=== PATIENT | male | born 1985 | race Two or more races ===

== ENCOUNTER 2018-04-01 15:51 | Emergency (ER) | payer MEDICAID ==
[~2018-04-01] VITALS: Ht 167.6 cm; Wt 77.1 kg
[2018-04-01 16:00] VITALS: BP 156/97
[2018-04-01] MEDS ORDERED: LORazepam Inj 2mg/ml 1ml IV ONE ×2 (16:00→17:00)
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
[2018-04-01 16:27] LABS: APPEARANCE,URINE CLEAR; BILIRUBIN, URINE NEGATIVE (NEGATIVE); COLOR,URINE PALE YELLOW; GLUCOSE, URINE (UA) NEGATIVE (NEGATIVE); KETONES,URINE NEGATIVE (NEGATIVE); LEUKOCYTE ESTERASE ,URINE NEGATIVE (NEGATIVE); NITRITE,URINE NEGATIVE (NEGATIVE); PH,URINE 6.5 (4.5-8.0); PROTEIN,URINE NEGATIVE (NEGATIVE); UROBILINOGEN,URINE NORMAL MG/DL (0.0-1.0)
[2018-04-01 16:36] LABS: EOSINOPHILS % (AUTO) 0.6 % (0.0-3.0); HEMATOCRIT 47.2 % (42.0-52.0); HEMOGLOBIN 16.8 G/DL (14.2-18.0); LYMPHOCYTES % (AUTO) 24.1 % (20.0-45.0); MEAN CORPUSCULAR VOLUME 88 FL (80-99); MONOCYTES % (AUTO) 10.6 % (1.0-10.0); NEUTROPHILS % (AUTO) 63.7 % (45.0-75.0); PLATELET COUNT 205 K/UL (150-450); RED BLOOD COUNT 5.34 M/UL (4.70-6.10); RED CELL DISTRIBUTION WIDTH 10.7 % (11.6-14.8)
[2018-04-01 16:42] LABS: ANION GAP 16 mmol/L (5-15); BLOOD UREA NITROGEN 6 mg/dL (7-18); CALCIUM 8.6 MG/DL (8.5-10.1); CARBON DIOXIDE 21 MMOL/L (21-32); CHLORIDE 101 MMOL/L (98-107); CREATININE 1.2 MG/DL (0.55-1.30); POTASSIUM 3.5 MMOL/L (3.5-5.1); SODIUM 138 MMOL/L (136-145)
[2018-04-01 16:59] LABS: ALANINE AMINOTRANSFERASE 88 U/L (12-78); ALBUMIN 4.3 G/DL (3.4-5.0); ALKALINE PHOSPHATASE 77 U/L (46-116); ASPARTATE AMINO TRANSFERASE 107 U/L (15-37); BILIRUBIN,TOTAL 0.8 MG/DL (0.2-1.0); CREATINE KINASE 569 U/L (26-308)
--- NOTE | 2018-04-01 17:18 | Diagnostic Imaging Report ---
Indication: Shortness of breath Technique: One view of the chest Comparison: none Findings: Lungs and pleural spaces are clear. Heart size is upper limit normal Impression: No acute process
[2018-04-01 18:00] VITALS: BP 124/73
[2018-04-01 20:00] VITALS: BP 122/70
[2018-04-01 21:05] VITALS: BP 124/73
[2018-04-02] MEDS ORDERED: LIBRIUM10 MG ORAL (05:59)
--- NOTE | 2018-04-04 12:20 | Cardiology Report ---
APPROVED REPORT EKG Measurement Heart [id number] Sinus tachycardia Otherwise normal ECG
== END 2018-04-01 21:05 | disposition home or self-care (01) ==
LOC: EMR 16:30
DX: F10.129 Alcohol abuse with intoxication, unspecified (principal); F15.129 Other stimulant abuse with intoxication, unspecified
CPT/HCPCS: 36415; 71045; 80053; 80307; 80329; 81003; 82550; 83605; 84443; 84484; 85025; 93005; 96365; 96366; 96374; 99284; J2405

== ENCOUNTER 2018-04-02 04:30 | Emergency (ER) | payer MEDICAID ==
[~2018-04-02] VITALS: Ht 167.6 cm; Wt 78.0 kg
[2018-04-02 04:55] VITALS: BP 148/79
[2018-04-02] MEDS ORDERED: LORazepam Inj 2mg/ml 1ml IV ONE (05:00)
[2018-04-02] MEDS ORDERED: Pantoprazole Inj IV ONE (05:00)
--- NOTE | 2018-04-02 05:01 | Emergency Room Report ---
History of Present Illness General Chief Complaint: Abdominal Pain Source: Patient Present Illness HPI Is a 32-year-old male who has a history of alcohol abuse. He was here yesterday for intoxication with very high blood alcohol and also positive for amphetamine. Patient presents with chief complaint of abdominal pain with vomiting. Noticed some specks in it. Pain is epigastric and left upper quadrant area. Also very shaky. Has not had any alcohol since he left here. Denies any other complaint. Pain is 9 out of 10. No radiation. Vomiting is mostly nonbilious. No black stool. Allergies: Coded Allergies: No Known Allergies (Unverified , 04/01/18) Patient History Past Medical History: see triage record, old chart reviewed Past Surgical History: none Pertinent Family History: none Social History: Reports: alcohol use, drug use Immunizations: other Reviewed Nursing Documentation: PMH: Agreed; PSxH: Agreed Nursing Documentation-PMH Hx Gastrointestinal Problems: Yes - GASTRITIS Review of Systems Eye: Denies: eye pain, blurred vision ENT: Denies: ear pain, nose congestion, throat swelling Respiratory: Denies: cough, shortness of breath Cardiovascular: Denies: chest pain, palpitations Gastrointestinal: Reports: abdominal pain, nausea, vomiting; Denies: diarrhea Musculoskeletal: Denies: back pain, joint pain Skin: Denies: rash Neurological: Denies: headache, numbness Endocrine: Denies: increased thirst, increased urine Hematologic/Lymphatic: Denies: easy bruising All Other Systems: negative except mentioned in HPI Physical Exam Vital Signs Date Time Temp Pulse Resp B/P (MAP) Pulse Ox O2 Delivery O2 Flow Rate FiO2 04/02/18 04:42 98.7 106 18 155/79 96 Room Air 98.8 vitals with tachycardia and high blood pressure Sp02 EP Interpretation: reviewed, normal General Appearance: well appearing, no apparent distress, alert Head: normocephalic, atraumatic Eyes: bilateral eye PERRL, bilateral eye EOMI ENT: hearing grossly normal, normal pharynx Neck: full range of motion, supple, no meningismus Respiratory: chest non-tender, lungs clear, normal breath sounds Cardiovascular #1: regular rate, rhythm, no murmur Gastrointestinal: normal bowel sounds, no mass, no organomegaly, no bruit, non- distended, tenderness - epigastric Musculoskeletal: back normal, gait/station normal, normal range of motion Neurologic: alert, oriented x3, other - tremulous Psychiatric: mood/affect normal Skin: warm/dry Medical Decision Making Diagnostic Impression: Primary Impression: Alcohol withdrawal syndrome Qualified Codes: F10.230 - Alcohol dependence with withdrawal, uncomplicated Additional Impression: Alcoholic gastritis Qualified Codes: K29.20 - Alcoholic gastritis without bleeding ER Course this patient presents with alcohol withdrawal syndrome. No perforation. No evidence of acute abdomen. His of epigastric pain is probably secondary to alcoholic gastritis. He is much better now. No longer tremulous. We'll discharge home. Lab Results Impression labs unremarkable Last Vital Signs Date Time Temp Pulse Resp B/P (MAP) Pulse Ox O2 Delivery O2 Flow Rate FiO2 04/02/18 04:42 98.7 106 18 155/79 96 Room Air 98.8 Status: improved Disposition: HOME, SELF-CARE Condition: Stable Scripts Chlordiazepoxide Hcl* (LIBRIUM*) 10 Mg Capsule 10 MG ORAL THREE TIMES A DAY, #21 CAP 0 Refills Prov: HEIDI AHN M.D. 04/02/18 Additional Instructions: Stop drinking alcohol. Follow-up with rehabilitation in 7 days. Follow-up your doctor in 7 days. Return if worse. HEIDI AHN M.D. Apr 02, 2018 05:01
[2018-04-02] MEDS ORDERED: chlordiazePOXIDE 25mg Cap ORAL ONE (05:15)
[2018-04-02 05:28] LABS: APPEARANCE,URINE CLEAR; BILIRUBIN, URINE NEGATIVE (NEGATIVE); COLOR,URINE PALE YELLOW; GLUCOSE, URINE (UA) NEGATIVE (NEGATIVE); KETONES,URINE NEGATIVE (NEGATIVE); LEUKOCYTE ESTERASE ,URINE NEGATIVE (NEGATIVE); NITRITE,URINE NEGATIVE (NEGATIVE); PH,URINE 8 (4.5-8.0); PROTEIN,URINE NEGATIVE (NEGATIVE); UROBILINOGEN,URINE NORMAL MG/DL (0.0-1.0)
[2018-04-02 05:30] LABS: EOSINOPHILS % (AUTO) 1.6 % (0.0-3.0); HEMATOCRIT 47.5 % (42.0-52.0); HEMOGLOBIN 16.4 G/DL (14.2-18.0); LYMPHOCYTES % (AUTO) 18.5 % (20.0-45.0); MEAN CORPUSCULAR VOLUME 89 FL (80-99); MONOCYTES % (AUTO) 9.4 % (1.0-10.0); NEUTROPHILS % (AUTO) 69.6 % (45.0-75.0); PLATELET COUNT 185 K/UL (150-450); RED BLOOD COUNT 5.31 M/UL (4.70-6.10); RED CELL DISTRIBUTION WIDTH 10.9 % (11.6-14.8); WHITE BLOOD COUNT 7.9 K/UL (4.8-10.8)
[2018-04-02 05:41] LABS: ANION GAP 12 mmol/L (5-15); BLOOD UREA NITROGEN 6 mg/dL (7-18); CALCIUM 8.5 MG/DL (8.5-10.1); CARBON DIOXIDE 24 MMOL/L (21-32); CHLORIDE 100 MMOL/L (98-107); CREATININE 0.8 MG/DL (0.55-1.30); POTASSIUM 3.5 MMOL/L (3.5-5.1); SODIUM 136 MMOL/L (136-145)
[2018-04-02 05:52] LABS: ALANINE AMINOTRANSFERASE 80 U/L (12-78); ALBUMIN 4.3 G/DL (3.4-5.0); ALBUMIN/GLOBULIN RATIO 1.1 (1.0-2.7); ALKALINE PHOSPHATASE 74 U/L (46-116); ASPARTATE AMINO TRANSFERASE 93 U/L (15-37); BILIRUBIN,TOTAL 1.7 MG/DL (0.2-1.0)
[2018-04-02 05:54] LABS: BILIRUBIN,DIRECT 0.3 MG/DL (0.0-0.3)
[2018-04-02 05:55] VITALS: BP 132/79
[2018-04-02] MEDS ORDERED: LIBRIUM10 MG ORAL (05:59)
[2018-04-02 06:10] VITALS: BP 132/79
--- NOTE | 2018-04-02 14:38 | Diagnostic Imaging Report ---
Indication: Chest pain Technique: One view of the chest Comparison: 04/01/2018 Findings: Lungs and pleural spaces are clear. Heart size is normal. No significant change Impression: No acute process
== END 2018-04-02 06:10 | disposition home or self-care (01) ==
LOC: EMR 04:59
DX: F10.239 Alcohol dependence with withdrawal, unspecified (principal); R11.2 Nausea with vomiting, unspecified; K29.20 Alcoholic gastritis without bleeding
CPT/HCPCS: 36415; 71045; 80053; 81003; 82248; 83690; 85025; 96365; 96374; 96375; 99283; C9113; J2405

== ENCOUNTER 2018-05-23 11:55 | Emergency (ER) | payer MEDICAID ==
[~2018-05-23] VITALS: Ht 162.6 cm; Wt 68.0 kg
[~2018-05-23 11:55] MED LIST: LIBRIUM10 MG ORAL
[2018-05-23 12:05] VITALS: BP 122/63
[2018-05-23 12:56] LABS: APPEARANCE,URINE CLEAR; BILIRUBIN, URINE NEGATIVE (NEGATIVE); COLOR,URINE PALE YELLOW; GLUCOSE, URINE (UA) NEGATIVE (NEGATIVE); KETONES,URINE 1+ (NEGATIVE); LEUKOCYTE ESTERASE ,URINE NEGATIVE (NEGATIVE); NITRITE,URINE NEGATIVE (NEGATIVE); PH,URINE 7 (4.5-8.0); PROTEIN,URINE NEGATIVE (NEGATIVE); UROBILINOGEN,URINE 4 MG/DL (0.0-1.0)
[2018-05-23] MEDS ORDERED: Isovue-300 100ml vial INJ PRN (13:00)
[2018-05-23 13:04] LABS: BASOPHILS % (AUTO) 1.3 % (0.0-2.0); EOSINOPHILS % (AUTO) 1.3 % (0.0-3.0); HEMATOCRIT 45.2 % (42.0-52.0); HEMOGLOBIN 15.8 G/DL (14.2-18.0); LYMPHOCYTES % (AUTO) 18.8 % (20.0-45.0); MEAN CORPUSCULAR VOLUME 89 FL (80-99); MONOCYTES % (AUTO) 9.5 % (1.0-10.0); NEUTROPHILS % (AUTO) 69.1 % (45.0-75.0); PLATELET COUNT 262 K/UL (150-450); RED CELL DISTRIBUTION WIDTH 9.5 % (11.6-14.8); WHITE BLOOD COUNT 7.9 K/UL (4.8-10.8)
[2018-05-23 13:07] LABS: ANION GAP 14 mmol/L (5-15); BLOOD UREA NITROGEN 6 mg/dL (7-18); CALCIUM 8.5 MG/DL (8.5-10.1); CARBON DIOXIDE 22 MMOL/L (21-32); CHLORIDE 102 MMOL/L (98-107); CREATININE 0.7 MG/DL (0.55-1.30); POTASSIUM 3.6 MMOL/L (3.5-5.1); SODIUM 138 MMOL/L (136-145)
[2018-05-23 13:19] LABS: ALANINE AMINOTRANSFERASE 25 U/L (12-78); ALBUMIN/GLOBULIN RATIO 1.1 (1.0-2.7); ALKALINE PHOSPHATASE 82 U/L (46-116); ASPARTATE AMINO TRANSFERASE 30 U/L (15-37); BILIRUBIN,TOTAL 0.9 MG/DL (0.2-1.0)
--- NOTE | 2018-05-23 13:29 | Diagnostic Imaging Report ---
EXAM: XR Chest, 1 View CLINICAL HISTORY: SOB TECHNIQUE: Frontal view of the chest. COMPARISON: No relevant prior studies available. FINDINGS: Lungs: No consolidation. Reduced lung volumes Pleural space: Unremarkable. No pneumothorax. Heart: Unremarkable. No cardiomegaly. Mediastinum: Unremarkable. Bones/joints: No acute fracture. IMPRESSION: No acute cardiopulmonary disease.
--- NOTE | 2018-05-23 14:27 | Diagnostic Imaging Report ---
EXAM: CT Abdomen and Pelvis With Intravenous Contrast CLINICAL HISTORY: PAIN TECHNIQUE: Axial computed tomography images of the abdomen and pelvis with intravenous contrast. CTDI is 0.15 + 13.45 mGy and DLP is 736 mGy-cm. One or more of the following dose reduction techniques were used: automated exposure control, adjustment of the mA and/or kV according to patient size, use of iterative reconstruction technique. COMPARISON: No relevant prior studies available. FINDINGS: Lung bases: Unremarkable. ABDOMEN: Liver: Fatty liver. Gallbladder and bile ducts: No calcified stones. No ductal dilation. Pancreas: Unremarkable. Spleen: Unremarkable. Adrenals: Unremarkable. Kidneys and ureters: Unremarkable. No hydronephrosis. Stomach and bowel: No edgardo mural thickening. Nonobstructive bowel gas pattern. PELVIS: Appendix: Unremarkable appendix. Bladder: Minimal thickening in the dome of the bladder. Reproductive: Unremarkable. ABDOMEN and PELVIS: Intraperitoneal space: Unremarkable. Bones/joints: No acute fracture. Soft tissues: Unremarkable. Vasculature: Unremarkable. No abdominal aortic aneurysm. Lymph nodes: Some calcified mesenteric nodes. IMPRESSION: Unremarkable appendix.
[2018-05-23] MEDS ORDERED: Lidocaine 2% Visc 15ml soln ORAL ONE (14:30)
--- NOTE | 2018-05-23 14:42 | Emergency Room Report ---
History of Present Illness General Chief Complaint: Dyspnea/Respdistress Source: Patient Present Illness HPI Patient states that he has overall abdominal pain after drinking. He denies nausea or vomiting. He denies fever or chills. He denies dysuria or hematuria. He has no other complaints. Allergies: Coded Allergies: No Known Allergies (Unverified , 04/01/18) Patient History Past Medical History: none, see triage record, GERD Social History: Reports: alcohol use, drug use Reviewed Nursing Documentation: PMH: Agreed; PSxH: Agreed Nursing Documentation-PMH Past Medical History: No History, Except For Hx Gastrointestinal Problems: Yes - GASTRITIS Review of Systems All Other Systems: negative except mentioned in HPI Physical Exam Vital Signs Date Time Temp Pulse Resp B/P (MAP) Pulse Ox O2 Delivery O2 Flow Rate FiO2 05/23/18 11:58 98.1 96 18 119/77 98 Room Air 98.1 Sp02 EP Interpretation: reviewed, normal General Appearance: no apparent distress, alert, GCS 15, non-toxic Head: normocephalic, atraumatic Eyes: bilateral eye normal inspection, bilateral eye PERRL ENT: hearing grossly normal, normal pharynx, no angioedema, normal voice Neck: full range of motion, supple/symm/no masses Respiratory: chest non-tender, lungs clear, normal breath sounds, speaking full sentences Cardiovascular #1: regular rate, rhythm, no edema Cardiovascular #2: 2+ carotid (R), 2+ carotid (L), 2+ radial (R), 2+ radial (L) , 2+ dorsalis pedis (R), 2+ dorsalis pedis (L) Gastrointestinal: normal bowel sounds, soft, non-distended, no guarding, no rebound, tenderness - ttp in the epigastrium Rectal: deferred Musculoskeletal: back normal, gait/station normal, normal range of motion, non- tender Neurologic: alert, oriented x3, responsive, motor strength/tone normal, sensory intact, speech normal Psychiatric: judgement/insight normal, memory normal, mood/affect normal, no suicidal/homicidal ideation Skin: normal color, no rash, warm/dry, well hydrated Medical Decision Making Diagnostic Impression: Primary Impression: Alcohol intoxication Additional Impression: Gastritis ER Course This patient has a clinical presentation consistent with gastritis. The location of the pain and history and physical examination is consistent with this. I considered other concerning differentials, to include appendicitis, cholelithiasis, cholecystitis, pancreatitis, perforated viscus, aortic aneurysm , and pyelonephritis to name a few. However, CT of the abdomen and pelvis and laboratory workup in combination with medical and surgical history and physical exam makes these unlikely at this time. I did educate the patient on close return precautions and followup instructions. Laboratory Tests Test 05/23/18 12:30 White Blood Count 7.9 K/UL (4.8-10.8) Red Blood Count 5.10 M/UL (4.70-6.10) Hemoglobin 15.8 G/DL (14.2-18.0) Hematocrit 45.2 % (42.0-52.0) Mean Corpuscular Volume 89 FL (80-99) Mean Corpuscular Hemoglobin 30.9 PG (27.0-31.0) Mean Corpuscular Hemoglobin Concent 34.9 G/DL (32.0-36.0) Red Cell Distribution Width 9.5 % (11.6-14.8) L Platelet Count 262 K/UL (150-450) Mean Platelet Volume 5.8 FL (6.5-10.1) L Neutrophils (%) (Auto) 69.1 % (45.0-75.0) Lymphocytes (%) (Auto) 18.8 % (20.0-45.0) L Monocytes (%) (Auto) 9.5 % (1.0-10.0) Eosinophils (%) (Auto) 1.3 % (0.0-3.0) Basophils (%) (Auto) 1.3 % (0.0-2.0) Urine Color Pale yellow Urine Appearance Clear Urine pH 7 (4.5-8.0) Urine Specific Royal 1.010 (1.005-1.035) Urine Protein Negative (NEGATIVE) Urine Glucose (UA) Negative (NEGATIVE) Urine Ketones 1+ (NEGATIVE) H Urine Occult Blood Negative (NEGATIVE) Urine Nitrite Negative (NEGATIVE) Urine Bilirubin Negative (NEGATIVE) Urine Urobilinogen 4 MG/DL (0.0-1.0) H Urine Leukocyte Esterase Negative (NEGATIVE) Sodium Level 138 MMOL/L (136-145) Potassium Level 3.6 MMOL/L (3.5-5.1) Chloride Level 102 MMOL/L (98-107) Carbon Dioxide Level 22 MMOL/L (21-32) Anion Gap 14 mmol/L (5-15) Blood Urea Nitrogen 6 mg/dL (7-18) L Creatinine 0.7 MG/DL (0.55-1.30) Estimate Glomerular Filtration Rate > 60 mL/min (>60) Glucose Level 111 MG/DL (74-106) H Calcium Level 8.5 MG/DL (8.5-10.1) Total Bilirubin 0.9 MG/DL (0.2-1.0) Aspartate Amino Transferase (AST) 30 U/L (15-37) Alanine Aminotransferase (ALT) 25 U/L (12-78) Alkaline Phosphatase 82 U/L (46-116) Troponin I 0.000 ng/mL (0.000-0.056) Total Protein 7.7 G/DL (6.4-8.2) Albumin 4.0 G/DL (3.4-5.0) Globulin 3.7 g/dL Albumin/Globulin Ratio 1.1 (1.0-2.7) Thyroid Stimulating Hormone (TSH) 0.782 uiU/mL (0.358-3.740) Urine Opiates Screen Negative (NEGATIVE) Urine Barbiturates Screen Negative (NEGATIVE) Phencyclidine (PCP) Screen Negative (NEGATIVE) Urine Amphetamines Screen Negative (NEGATIVE) Urine Benzodiazepines Screen Negative (NEGATIVE) Urine Cocaine Screen Negative (NEGATIVE) Urine Marijuana (THC) Screen Negative (NEGATIVE) Serum Alcohol 219 mg/dL EKG Diagnostic Results Rate: normal Rhythm: NSR ST Segments: no acute changes Rhythm Strip Diag. Results EP Interpretation: yes Rate: 80's Rhythm: NSR, no PVC's, no ectopy Last Vital Signs Date Time Temp Pulse Resp B/P (MAP) Pulse Ox O2 Delivery O2 Flow Rate FiO2 05/23/18 12:05 73 22 Room Air 05/23/18 12:05 98.1 122/63 98 98.1 Disposition: HOME, SELF-CARE Condition: Improved Scripts Mag Hydrox/Al Hydrox/Simeth (MAALOX MAXIMUM STRENGTH SUSP) 355 Ml Oral.susp 10 ML PO Q4HR, #355 ML Prov: Yesenia Hernandez DO 05/23/18 Famotidine (PEPCID AC) 20 Mg Tablet 20 MG PO BID, #60 TAB Prov: Yesenia Hernandez DO 05/23/18 Referrals: NOT CHOSEN IPA/,REFERRING (PCP) Yesenia Hernandez DO May 23, 2018 14:42
[2018-05-23] MEDS ORDERED: MAALOX MAXIMUM355 M1 PO (14:44)
[2018-05-23] MEDS ORDERED: PEPCID AC20 M2 PO (14:44)
[2018-05-23 15:34] VITALS: BP 120/86
[2018-05-23 15:35] VITALS: BP 120/86
--- NOTE | 2018-05-24 14:19 | Cardiology Report ---
APPROVED REPORT EKG Measurement Heart [id number] [place] [id number] Normal sinus rhythm Normal ECG
== END 2018-05-23 15:36 | disposition home or self-care (01) ==
LOC: EMR 14:04
DX: F10.129 Alcohol abuse with intoxication, unspecified (principal); K29.70 Gastritis, unspecified, without bleeding
CPT/HCPCS: 36415; 71045; 74177; 80053; 80307; 80329; 81003; 83690; 84443; 84484; 85025; 93005; 96361; 96374; 99284; Q9967; S0028

== ENCOUNTER 2018-06-04 17:51 | Inpatient (IN) | payer MEDICAID ==
[~2018-06-04] VITALS: Ht 162.6 cm; Wt 68.0 kg
[~2018-06-04 17:51] MED LIST changes: +MAALOX MAXIMUM355 M1 PO; +PEPCID AC20 M2 PO
[2018-06-04] MEDS ORDERED: Morphine Sulfate 4mg/ml Inj (IV USE ONLY) IVP ONE ×3 (18:00→20:15)
[2018-06-04 18:25] LABS: BASOPHILS % (AUTO) 1.6 % (0.0-2.0); EOSINOPHILS % (AUTO) 0.1 % (0.0-3.0); HEMATOCRIT 44.1 % (42.0-52.0); HEMOGLOBIN 15.9 G/DL (14.2-18.0); LYMPHOCYTES % (AUTO) 19.5 % (20.0-45.0); MEAN CORPUSCULAR VOLUME 88 FL (80-99); MONOCYTES % (AUTO) 8.4 % (1.0-10.0); NEUTROPHILS % (AUTO) 70.5 % (45.0-75.0); PLATELET COUNT 212 K/UL (150-450); RED BLOOD COUNT 5.04 M/UL (4.70-6.10); RED CELL DISTRIBUTION WIDTH 10.1 % (11.6-14.8); WHITE BLOOD COUNT 7.1 K/UL (4.8-10.8)
[2018-06-04 18:34] VITALS: BP 151/91
[2018-06-04 18:38] LABS: APPEARANCE,URINE CLEAR; BILIRUBIN, URINE NEGATIVE (NEGATIVE); COLOR,URINE PALE YELLOW; GLUCOSE, URINE (UA) NEGATIVE (NEGATIVE); KETONES,URINE 2+ (NEGATIVE); LEUKOCYTE ESTERASE ,URINE NEGATIVE (NEGATIVE); NITRITE,URINE NEGATIVE (NEGATIVE); PH,URINE 6.5 (4.5-8.0); PROTEIN,URINE 1+ (NEGATIVE); UROBILINOGEN,URINE NORMAL MG/DL (0.0-1.0)
[2018-06-04 18:38] LABS: ANION GAP 18 mmol/L (5-15); BLOOD UREA NITROGEN 4 mg/dL (7-18); CALCIUM 8.9 MG/DL (8.5-10.1); CARBON DIOXIDE 21 MMOL/L (21-32); CHLORIDE 98 MMOL/L (98-107); CREATININE 0.8 MG/DL (0.55-1.30); POTASSIUM 3.3 MMOL/L (3.5-5.1); SODIUM 137 MMOL/L (136-145)
[2018-06-04 18:44] LABS: ALANINE AMINOTRANSFERASE 69 U/L (12-78); ALBUMIN 4.7 G/DL (3.4-5.0); ALBUMIN/GLOBULIN RATIO 1.2 (1.0-2.7); ALKALINE PHOSPHATASE 86 U/L (46-116); ASPARTATE AMINO TRANSFERASE 83 U/L (15-37); BILIRUBIN,TOTAL 0.7 MG/DL (0.2-1.0); CREATINE KINASE 611 U/L (26-308)
[2018-06-04 18:48] VITALS: BP 160/86
[2018-06-04 19:43] VITALS: BP 145/79
[2018-06-04] MEDS ORDERED: Mylanta II UD 30ml ORAL ONE (20:15)
[2018-06-04] MEDS ORDERED: Isovue-300 100ml vial INJ PRN (20:15)
[2018-06-04] MEDS ORDERED: Lidocaine 2% Visc 15ml soln ORAL ONE (20:15)
[2018-06-04] MEDS ORDERED: LORazepam Inj 2mg/ml 1ml IV ONE (20:15)
[2018-06-04 21:07] VITALS: BP 145/79
--- NOTE | 2018-06-04 21:22 | Emergency Room Report ---
History of Present Illness General Chief Complaint: Nausea, Vomiting, and Diarrhea Source: Patient, EMS Present Illness HPI Patient presents with 2 days of epigastric and abdominal pain. He's been vomiting. He's vomiting bile at this time. He denies any melena or hematochezia, however, he states there is some blood when he moves his bowels. The pain is severe in his abdomen 10/10 - constant, burning and pressure. It doesn't radiate towards his back. It is epigastric and radiates more into her his chest. He drinks daily. He denied drinking to that paramedics but states that he's been drinking today to nursing staff. The patient states he gets the shakes when he stops drinking. Patient denies any fevers, chills, productive cough, rash. He denies suicidal or homicidal ideation. Denies seizures. Denies DTs. He was evaluated for similar 05/23 and presented with 9/10 pain which resolved with treatment. A CT abdomen was performed which was negative. He was seen twice in March, initially with acute intoxication and the next day with withdrawal symptoms. He was discharged then with Librium. Allergies: Coded Allergies: No Known Allergies (Unverified , 04/01/18) Patient History Past Medical History: see triage record, old chart reviewed Social History: Reports: alcohol use, drug use - in the past amphetamine; Denies: smoking Social History Narrative , not working Reviewed Nursing Documentation: PMH: Agreed; PSxH: Agreed Nursing Documentation-[facility] Past Medical History: No Stated History Hx Gastrointestinal Problems: Yes - GASTRITIS Review of Systems All Other Systems: negative except mentioned in HPI Physical Exam Vital Signs Date Time Temp Pulse Resp B/P (MAP) Pulse Ox O2 Delivery O2 Flow Rate FiO2 06/04/18 17:55 97.3 120 18 151/99 97 Room Air 97.3 06/04/18 19:43 2.0 Sp02 EP Interpretation: reviewed, normal General Appearance: GCS 15, moderate distress, other - vomiting Head: normocephalic Eyes: bilateral eye PERRL, bilateral eye Scleral Injection ENT: moist mucus membranes Neck: supple Respiratory: lungs clear, normal breath sounds Cardiovascular #1: regular rate, rhythm Cardiovascular #2: 2+ radial (R) Gastrointestinal: normal inspection, normal bowel sounds, no mass, non- distended, no guarding, no rebound, tenderness - epigastric Musculoskeletal: back normal, gait/station normal, normal range of motion Neurologic: alert, oriented x3 Skin: normal inspection, warm/dry Medical Decision Making Diagnostic Impression: Primary Impression: Abdominal pain Qualified Codes: R10.13 - Epigastric pain Additional Impressions: Alcohol intoxication Qualified Codes: F10.929 - Alcohol use, unspecified with intoxication, unspecified Hypoxia Alcohol withdrawal Qualified Codes: F10.239 - Alcohol dependence with withdrawal, unspecified Tachycardia Gastritis Qualified Codes: K29.20 - Alcoholic gastritis without bleeding ER Course Patient presents with severe abdominal pain and vomiting. I differential includes gastritis, gastroenteritis, GI bleed, pancreatitis amongst others. The patient be evaluated with chest x-ray abdominal film EKG labs. The patient will be treated with IV hydration and also Zofran and Pepcid and morphine. EKG ST. CXR no infiltrates. Abd, no SBO. Labs with normal H/H, WBC and platelets. No coagulopathy. BA 383. Elevated CK and AST. The patient still complains of severe epigastric pain. Morphine is repeated. The patient has some vomiting. He still complains about nausea and significant abdominal pain. Pain medication is repeated however due to this further studies indicated. He's been treated with several doses of morphine. He still tachycardic and increasing so. Fluids will be increased at this time and also pain medication repeated. Due to the severity of the abdominal pain and the patient needs a CT of the abdomen ordered. In addition to that he's been having low O2 saturations here. This chest x-ray was clear. In addition to that we will admit him to the hospital for pain control and observation with concern over possible DTs. Still tachycardic. Ativan given and continued hydration. More calm and less pain. CT was just done 05/23 and negative. Non-surgical exam at this pint and CT cancelled. Discussed with Dr. Mercer. Admit telemetry. Laboratory Tests Test 06/04/18 18:00 06/04/18 18:22 White Blood Count 7.1 K/UL (4.8-10.8) Red Blood Count 5.04 M/UL (4.70-6.10) Hemoglobin 15.9 G/DL (14.2-18.0) Hematocrit 44.1 % (42.0-52.0) Mean Corpuscular Volume 88 FL (80-99) Mean Corpuscular Hemoglobin 31.5 PG (27.0-31.0) H Mean Corpuscular Hemoglobin Concent 35.9 G/DL (32.0-36.0) Red Cell Distribution Width 10.1 % (11.6-14.8) L Platelet Count 212 K/UL (150-450) Mean Platelet Volume 6.2 FL (6.5-10.1) L Neutrophils (%) (Auto) 70.5 % (45.0-75.0) Lymphocytes (%) (Auto) 19.5 % (20.0-45.0) L Monocytes (%) (Auto) 8.4 % (1.0-10.0) Eosinophils (%) (Auto) 0.1 % (0.0-3.0) Basophils (%) (Auto) 1.6 % (0.0-2.0) Prothrombin Time 10.3 SEC (9.30-11.50) Prothrombin Time INR 1.0 (0.9-1.1) PTT 27 SEC (23-33) Sodium Level 137 MMOL/L (136-145) Potassium Level 3.3 MMOL/L (3.5-5.1) L Chloride Level 98 MMOL/L (98-107) Carbon Dioxide Level 21 MMOL/L (21-32) Anion Gap 18 mmol/L (5-15) H Blood Urea Nitrogen 4 mg/dL (7-18) L Creatinine 0.8 MG/DL (0.55-1.30) Estimate Glomerular Filtration Rate > 60 mL/min (>60) Glucose Level 147 MG/DL (74-106) H Calcium Level 8.9 MG/DL (8.5-10.1) Total Bilirubin 0.7 MG/DL (0.2-1.0) Aspartate Amino Transferase (AST) 83 U/L (15-37) H Alanine Aminotransferase (ALT) 69 U/L (12-78) Alkaline Phosphatase 86 U/L (46-116) Total Creatine Kinase 611 U/L (26-308) H Total Protein 8.7 G/DL (6.4-8.2) H Albumin 4.7 G/DL (3.4-5.0) Globulin 4.0 g/dL Albumin/Globulin Ratio 1.2 (1.0-2.7) Lipase 303 U/L (73-393) Serum Alcohol 383 mg/dL Urine Color Pale yellow Urine Appearance Clear Urine pH 6.5 (4.5-8.0) Urine Specific [place] 1.005 (1.005-1.035) Urine Protein 1+ (NEGATIVE) H Urine Glucose (UA) Negative (NEGATIVE) Urine Ketones 2+ (NEGATIVE) H Urine Occult Blood 1+ (NEGATIVE) H Urine Nitrite Negative (NEGATIVE) Urine Bilirubin Negative (NEGATIVE) Urine Urobilinogen Normal MG/DL (0.0-1.0) Urine Leukocyte Esterase Negative (NEGATIVE) Urine RBC 0-2 /HPF (0 - 0) H Urine WBC 0-2 /HPF (0 - 0) Urine Squamous Epithelial Cells None /LPF (NONE/OCC) Urine Bacteria Occasional /HPF (NONE) Urine Opiates Screen Negative (NEGATIVE) Urine Barbiturates Screen Negative (NEGATIVE) Phencyclidine (PCP) Screen Negative (NEGATIVE) Urine Amphetamines Screen Negative (NEGATIVE) Urine Benzodiazepines Screen Negative (NEGATIVE) Urine Cocaine Screen Negative (NEGATIVE) Urine Marijuana (THC) Screen Negative (NEGATIVE) EKG Diagnostic Results Rate: tachycardiac ST Segments: no acute changes Rhythm Strip Diag. Results EP Interpretation: yes Rhythm: no PVC's, no ectopy, other - Sinus tachycardia Chest X-Ray Diagnostic Results Chest X-Ray Diagnostic Results : Chest X-Ray Ordered: Yes # of Views/Limited/Complete: 1 View Indication: Other EP Interpretation: Yes Interpretation: no consolidation, no effusion, no pneumothorax, no acute cardiopulmonary disease Impression: No acute disease Electronically Signed by: Electronically signed by Constantine Jones MD Other X-Ray Diagnostic Results Other X-Ray Diagnostic Results : X-Ray ordered: abd # of Views/Limited Vs Complete: 2 View Indication: Pain EP Interpretation: Yes Interpretation: nonspecific bowel gas, no sbo, other - Possibly of gas Impression: Other Electronically Signed by: Electronically signed by Constantine Jones MD Last Vital Signs Date Time Temp Pulse Resp B/P (MAP) Pulse Ox O2 Delivery O2 Flow Rate FiO2 06/05/18 01:19 Room Air 06/05/18 01:02 98.0 110 27 136/87 95 2.0 98.0 Status: improved Disposition: ADMITTED INPATIENT Condition: Serious Referrals: NOT CHOSEN IPA/,REFERRING (PCP) Constantine Jones M.D. Jun 04, 2018 21:22
[2018-06-05 00:06] VITALS: BP 136/87
[2018-06-05] MEDS ORDERED: LORazepam Inj 2mg/ml 1ml IV ONE (00:15)
[2018-06-05] MEDS ORDERED: LORazepam Inj 2mg/ml 1ml IV PRN ×2 (01:00→12:00)
[2018-06-05] MEDS ORDERED: Folic Acid 1 MG, Magnesium Sulfate 2,000 MG, Multivitamin - 12 Injection 10 ML, Thiamin... IV SCH ×10 (03:00→09:00)
[2018-06-05 06:57] LABS: BASOPHILS % (AUTO) 1.1 % (0.0-2.0); EOSINOPHILS % (AUTO) 0.5 % (0.0-3.0); HEMATOCRIT 39.2 % (42.0-52.0); HEMOGLOBIN 13.7 G/DL (14.2-18.0); LYMPHOCYTES % (AUTO) 14.3 % (20.0-45.0); MEAN CORPUSCULAR VOLUME 89 FL (80-99); MONOCYTES % (AUTO) 10.9 % (1.0-10.0); NEUTROPHILS % (AUTO) 73.3 % (45.0-75.0); PLATELET COUNT 143 K/UL (150-450); RED CELL DISTRIBUTION WIDTH 10.4 % (11.6-14.8); WHITE BLOOD COUNT 5.9 K/UL (4.8-10.8)
[2018-06-05 07:30] LABS: ALANINE AMINOTRANSFERASE 58 U/L (12-78); ALBUMIN 3.9 G/DL (3.4-5.0); ALBUMIN/GLOBULIN RATIO 1.1 (1.0-2.7); ALKALINE PHOSPHATASE 71 U/L (46-116); ANION GAP 12 mmol/L (5-15); ASPARTATE AMINO TRANSFERASE 65 U/L (15-37); BILIRUBIN,TOTAL 0.8 MG/DL (0.2-1.0); BLOOD UREA NITROGEN 2 mg/dL (7-18); CALCIUM 7.4 MG/DL (8.5-10.1); CARBON DIOXIDE 27 MMOL/L (21-32); CHLORIDE 101 MMOL/L (98-107); CREATININE 0.7 MG/DL (0.55-1.30); POTASSIUM 2.8 MMOL/L (3.5-5.1); SODIUM 139 MMOL/L (136-145)
[2018-06-05 08:00] VITALS: BP 110/88
[2018-06-05 08:24] LABS: PHOSPHORUS 3.4 MG/DL (2.5-4.9)
[2018-06-05] MEDS: Thiamine HCl 100 MG in D5W 55 ML IVPB SCH (08:27)
[2018-06-05] MEDS ORDERED: Folic Acid 1 MG, Magnesium Sulfate 2,000 MG, Multivitamin - 12 Injection 10 ML in NS 10... IV SCH (09:00)
--- NOTE | 2018-06-05 10:00 | Diagnostic Imaging Report ---
Indication: Abdominal pain Technique: One view of the chest Comparison: 05/23/2018 Findings: Lungs and pleural spaces are clear. Heart size is normal. No significant interim change Impression: No acute process
--- NOTE | 2018-06-05 10:01 | Diagnostic Imaging Report ---
Indication: Abdominal pain Technique: Supine view of the abdomen Comparison: none Findings: Bowel gas pattern is unremarkable. No unusual masses or calcifications. Impression: No acute process
--- NOTE | 2018-06-05 11:54 | Consultation ---
History of Present Illness General Date patient seen: Jun 05, 2018 Present Illness Allergies: Coded Allergies: No Known Allergies (Unverified , 04/01/18) Medication History Scheduled Chlordiazepoxide Hcl* (Librium*), 10 MG ORAL THREE TIMES A DAY Famotidine (Pepcid Ac), 20 MG PO BID Mag Hydrox/Al Hydrox/Simeth (Maalox Maximum Strength Susp), 10 ML PO Q4HR Patient History Healthcare decision maker Resuscitation status Advanced Directive on File Physical Exam Last 24 Hour Vital Signs Date Time Temp Pulse Resp B/P (MAP) Pulse Ox O2 Delivery O2 Flow Rate FiO2 06/05/18 11:48 98.9 06/05/18 09:00 Room Air 06/05/18 08:00 79 06/05/18 08:00 98.9 20 110/88 (95) 96 98.9 06/05/18 04:00 107 06/05/18 01:19 Room Air 06/05/18 01:02 98.0 110 27 136/87 95 Room Air 2.0 98.0 06/05/18 00:06 98.0 110 27 136/87 95 Room Air 98.0 06/04/18 21:07 210.6 122 25 145/79 95 Room Air 210.6 06/04/18 20:18 99.2 06/04/18 19:43 99.2 111 25 145/79 95 Nasal Cannula 2.0 99.2 06/04/18 19:08 98.6 06/04/18 18:48 98.6 122 33 160/86 95 Room Air 98.6 06/04/18 18:34 98.6 115 18 151/91 96 Room Air 98.6 06/04/18 18:30 98.6 84 18 151/91 96 Room Air 98.6 06/04/18 17:55 97.3 120 18 151/99 97 Room Air 97.3 Intake and Output 06/04/18 06/05/18 19:00 07:00 Intake Total 3000 ml Output Total 0 ml 900 ml Balance 0 ml 2100 ml Intake IV Total 3000 ml Output Urine Total 0 ml 900 ml # Voids 1 Laboratory Tests Test 06/04/18 18:00 06/04/18 18:22 06/05/18 05:50 White Blood Count 7.1 K/UL (4.8-10.8) 5.9 K/UL (4.8-10.8) Red Blood Count 5.04 M/UL (4.70-6.10) 4.40 M/UL (4.70-6.10) L Hemoglobin 15.9 G/DL (14.2-18.0) 13.7 G/DL (14.2-18.0) L Hematocrit 44.1 % (42.0-52.0) 39.2 % (42.0-52.0) L Mean Corpuscular Volume 88 FL (80-99) 89 FL (80-99) Mean Corpuscular Hemoglobin 31.5 PG (27.0-31.0) H 31.1 PG (27.0-31.0) H Mean Corpuscular Hemoglobin Concent 35.9 G/DL (32.0-36.0) 34.9 G/DL (32.0-36.0) Red Cell Distribution Width 10.1 % (11.6-14.8) L 10.4 % (11.6-14.8) L Platelet Count 212 K/UL (150-450) 143 K/UL (150-450) L Mean Platelet Volume 6.2 FL (6.5-10.1) L 6.2 FL (6.5-10.1) L Neutrophils (%) (Auto) 70.5 % (45.0-75.0) 73.3 % (45.0-75.0) Lymphocytes (%) (Auto) 19.5 % (20.0-45.0) L 14.3 % (20.0-45.0) L Monocytes (%) (Auto) 8.4 % (1.0-10.0) 10.9 % (1.0-10.0) H Eosinophils (%) (Auto) 0.1 % (0.0-3.0) 0.5 % (0.0-3.0) Basophils (%) (Auto) 1.6 % (0.0-2.0) 1.1 % (0.0-2.0) Prothrombin Time 10.3 SEC (9.30-11.50) Prothromb Time International Ratio 1.0 (0.9-1.1) Activated Partial Thromboplast Time 27 SEC (23-33) Sodium Level 137 MMOL/L (136-145) 139 MMOL/L (136-145) Potassium Level 3.3 MMOL/L (3.5-5.1) L 2.8 MMOL/L (3.5-5.1) L Chloride Level 98 MMOL/L (98-107) 101 MMOL/L (98-107) Carbon Dioxide Level 21 MMOL/L (21-32) 27 MMOL/L (21-32) Anion Gap 18 mmol/L (5-15) H 12 mmol/L (5-15) Blood Urea Nitrogen 4 mg/dL (7-18) L 2 mg/dL (7-18) L Creatinine 0.8 MG/DL (0.55-1.30) 0.7 MG/DL (0.55-1.30) Estimat Glomerular Filtration Rate > 60 mL/min (>60) > 60 mL/min (>60) Glucose Level 147 MG/DL (74-106) H 116 MG/DL (74-106) H Calcium Level 8.9 MG/DL (8.5-10.1) 7.4 MG/DL (8.5-10.1) L Total Bilirubin 0.7 MG/DL (0.2-1.0) 0.8 MG/DL (0.2-1.0) Aspartate Amino Transf (AST/SGOT) 83 U/L (15-37) H 65 U/L (15-37) H Alanine Aminotransferase (ALT/SGPT) 69 U/L (12-78) 58 U/L (12-78) Alkaline Phosphatase 86 U/L (46-116) 71 U/L (46-116) Total Creatine Kinase 611 U/L (26-308) H Total Protein 8.7 G/DL (6.4-8.2) H 7.4 G/DL (6.4-8.2) Albumin 4.7 G/DL (3.4-5.0) 3.9 G/DL (3.4-5.0) Globulin 4.0 g/dL 3.5 g/dL Albumin/Globulin Ratio 1.2 (1.0-2.7) 1.1 (1.0-2.7) Lipase 303 U/L (73-393) Serum Alcohol 383 mg/dL Urine Color Pale yellow Urine Appearance Clear Urine pH 6.5 (4.5-8.0) Urine Specific [place] 1.005 (1.005-1.035) Urine Protein 1+ (NEGATIVE) H Urine Glucose (UA) Negative (NEGATIVE) Urine Ketones 2+ (NEGATIVE) H Urine Occult Blood 1+ (NEGATIVE) H Urine Nitrite Negative (NEGATIVE) Urine Bilirubin Negative (NEGATIVE) Urine Urobilinogen Normal MG/DL (0.0-1.0) Urine Leukocyte Esterase Negative (NEGATIVE) Urine RBC 0-2 /HPF (0 - 0) H Urine WBC 0-2 /HPF (0 - 0) Urine Squamous Epithelial Cells None /LPF (NONE/OCC) Urine Bacteria Occasional /HPF (NONE) Urine Opiates Screen Negative (NEGATIVE) Urine Barbiturates Screen Negative (NEGATIVE) Phencyclidine (PCP) Screen Negative (NEGATIVE) Urine Amphetamines Screen Negative (NEGATIVE) Urine Benzodiazepines Screen Negative (NEGATIVE) Urine Cocaine Screen Negative (NEGATIVE) Urine Marijuana (THC) Screen Negative (NEGATIVE) Phosphorus Level 3.4 MG/DL (2.5-4.9) Magnesium Level 1.6 MG/DL (1.8-2.4) L Height (Feet): 5 Height (Inches): 4.00 Weight (Pounds): 150 Medications Current Medications Medications (Trade) Dose Ordered Sig/Juan Route PRN Reason Start Time Stop Time Status Last Admin Dose Admin Acetaminophen (Tylenol) 650 mg Q4H PRN ORAL Mild Pain/Temp > 100.5 06/05/18 01:00 07/05/18 00:59 06/05/18 11:48 Barium Sulfate (Readi-Cat 2) 450 ml NOW PRN ORAL Radiology Procedure 06/04/18 20:15 06/06/18 20:01 Folic Acid 1 mg/ Magnesium Sulfate 2000 mg/ Multivitamins 10 ml/Sodium Chloride 1,014.2 ml @ 75 mls/hr Q24H IV 06/05/18 09:00 06/06/18 22:32 06/05/18 08:27 Gabapentin (Neurontin) 300 mg THREE TIMES A DAY ORAL 06/05/18 13:00 07/05/18 12:59 Iopamidol (Isovue-300 100ml) 100 ml NOW PRN INJ Radiology Procedure 06/04/18 20:15 Lorazepam (Ativan 2mg/ml 1ml) 1 mg Q2H PRN IV For Anxiety 06/05/18 12:00 06/12/18 11:59 Magnesium Sulfate 100 ml @ 100 mls/hr Q1H IVPB 06/05/18 16:00 06/05/18 17:59 Ondansetron HCl (Zofran) 4 mg Q6H PRN IVP Nausea & Vomiting 06/05/18 01:00 07/05/18 00:59 06/05/18 04:30 Potassium Chloride 100 ml @ 100 mls/hr Q1H IVPB 06/05/18 09:30 06/05/18 15:29 06/05/18 11:39 Sodium Chloride 1,000 ml @ 100 mls/hr Q10H IV 06/05/18 09:00 07/05/18 08:59 Thiamine HCl 100 mg/Dextrose 56 ml @ 110 mls/hr DAILY IVPB 06/05/18 09:00 06/06/18 09:31 06/05/18 08:27 Assessment/Plan Assessment/Plan (1) Abdominal pain (2) Alcohol abuse (3) Alcohol withdrawal (4) R/o Delirium tremens seen dictated. Sandro Anderson Jun 05, 2018 11:54
[2018-06-05 12:00] VITALS: BP 119/67
--- NOTE | 2018-06-05 12:20 | General Progress Note ---
Assessment/Plan Problem List: (1) Gastritis ICD Codes: K29.70 - Gastritis, unspecified, without bleeding SNOMED: 9696286 Qualifiers: Qualified Codes: K29.20 - Alcoholic gastritis without bleeding (2) Tachycardia ICD Codes: R00.0 - Tachycardia, unspecified SNOMED: 2996604 (3) Alcohol withdrawal ICD Codes: F10.239 - Alcohol dependence with withdrawal, unspecified SNOMED: 654750755 Qualifiers: Qualified Codes: F10.239 - Alcohol dependence with withdrawal, unspecified (4) Alcohol intoxication ICD Codes: F10.929 - Alcohol use, unspecified with intoxication, unspecified SNOMED: 10692655 Qualifiers: Qualified Codes: F10.929 - Alcohol use, unspecified with intoxication, unspecified (5) Abdominal pain ICD Codes: R10.9 - Unspecified abdominal pain SNOMED: 75197253 Qualifiers: Qualified Codes: R10.13 - Epigastric pain Assessment/Plan banana bag ivf start full liquid diet and advance as tolerated monitor W/D fu labs Subjective ROS Limited/Unobtainable: Yes Allergies: Coded Allergies: No Known Allergies (Unverified , 04/01/18) Subjective wants to eat Objective Last 24 Hour Vital Signs Date Time Temp Pulse Resp B/P (MAP) Pulse Ox O2 Delivery O2 Flow Rate FiO2 06/05/18 11:48 98.9 06/05/18 09:00 Room Air 06/05/18 08:00 79 06/05/18 08:00 98.9 20 110/88 (95) 96 98.9 06/05/18 04:00 107 06/05/18 01:19 Room Air 06/05/18 01:02 98.0 110 27 136/87 95 Room Air 2.0 98.0 06/05/18 00:06 98.0 110 27 136/87 95 Room Air 98.0 06/04/18 21:07 210.6 122 25 145/79 95 Room Air 210.6 06/04/18 20:18 99.2 06/04/18 19:43 99.2 111 25 145/79 95 Nasal Cannula 2.0 99.2 06/04/18 19:08 98.6 06/04/18 18:48 98.6 122 33 160/86 95 Room Air 98.6 06/04/18 18:34 98.6 115 18 151/91 96 Room Air 98.6 06/04/18 18:30 98.6 84 18 151/91 96 Room Air 98.6 06/04/18 17:55 97.3 120 18 151/99 97 Room Air 97.3 Intake and Output 06/04/18 06/05/18 19:00 07:00 Intake Total 3000 ml Output Total 0 ml 900 ml Balance 0 ml 2100 ml Intake IV Total 3000 ml Output Urine Total 0 ml 900 ml # Voids 1 Laboratory Tests 06/04/18 18:00: White Blood Count 7.1, Red Blood Count 5.04, Hemoglobin 15.9, Hematocrit 44.1, Mean Corpuscular Volume 88, Mean Corpuscular Hemoglobin 31.5H, Mean Corpuscular Hemoglobin Concent 35.9, Red Cell Distribution Width 10.1L, Platelet Count 212, Mean Platelet Volume 6.2L, Neutrophils (%) (Auto) 70.5, Lymphocytes (%) (Auto) 19.5L, Monocytes (%) (Auto) 8.4, Eosinophils (%) (Auto) 0.1, Basophils (%) (Auto ) 1.6, Prothrombin Time 10.3, Prothromb Time International Ratio 1.0, Activated Partial Thromboplast Time 27, Sodium Level 137, Potassium Level 3.3L, Chloride Level 98, Carbon Dioxide Level 21, Anion Gap 18H, Blood Urea Nitrogen 4L, Creatinine 0.8, Estimat Glomerular Filtration Rate > 60, Glucose Level 147H, Calcium Level 8.9, Total Bilirubin 0.7, Aspartate Amino Transf (AST/SGOT) 83H, Alanine Aminotransferase (ALT/SGPT) 69, Alkaline Phosphatase 86, Total Creatine Kinase 611H, Total Protein 8.7H, Albumin 4.7, Globulin 4.0, Albumin/Globulin Ratio 1.2, Lipase 303, Serum Alcohol 383 06/04/18 18:22: Urine Color Pale yellow, Urine Appearance Clear, Urine pH 6.5, Urine Specific [place] 1.005, Urine Protein 1+H, Urine Glucose (UA) Negative, Urine Ketones 2+H , Urine Occult Blood 1+H, Urine Nitrite Negative, Urine Bilirubin Negative, Urine Urobilinogen Normal, Urine Leukocyte Esterase Negative, Urine RBC 0-2H, Urine WBC 0-2, Urine Squamous Epithelial Cells None, Urine Bacteria Occasional, Urine Opiates Screen Negative, Urine Barbiturates Screen Negative, Phencyclidine (PCP) Screen Negative, Urine Amphetamines Screen Negative, Urine Benzodiazepines Screen Negative, Urine Cocaine Screen Negative, Urine Marijuana (THC) Screen Negative 06/05/18 05:50: White Blood Count 5.9, Red Blood Count 4.40L, Hemoglobin 13.7L, Hematocrit 39.2L , Mean Corpuscular Volume 89, Mean Corpuscular Hemoglobin 31.1H, Mean Corpuscular Hemoglobin Concent 34.9, Red Cell Distribution Width 10.4L, Platelet Count 143L, Mean Platelet Volume 6.2L, Neutrophils (%) (Auto) 73.3, Lymphocytes (%) (Auto) 14.3L, Monocytes (%) (Auto) 10.9H, Eosinophils (%) (Auto ) 0.5, Basophils (%) (Auto) 1.1, Sodium Level 139, Potassium Level 2.8L, Chloride Level 101, Carbon Dioxide Level 27, Anion Gap 12, Blood Urea Nitrogen 2L, Creatinine 0.7, Estimat Glomerular Filtration Rate > 60, Glucose Level 116H , Calcium Level 7.4L, Total Bilirubin 0.8, Aspartate Amino Transf (AST/SGOT) 65H , Alanine Aminotransferase (ALT/SGPT) 58, Alkaline Phosphatase 71, Total Protein 7.4, Albumin 3.9, Globulin 3.5, Albumin/Globulin Ratio 1.1, Phosphorus Level 3.4, Magnesium Level 1.6L Height (Feet): 5 Height (Inches): 4.00 Weight (Pounds): 150 General Appearance: alert EENT: normal ENT inspection Neck: supple Cardiovascular: normal rate Respiratory/Chest: decreased breath sounds Abdomen: normal bowel sounds, non tender, soft Extremities: non-tender Chay Martinez MD Jun 05, 2018 12:20
--- NOTE | 2018-06-05 12:58 | Consultation ---
Consult Note Consult Note asked to eval for abnormal electrolytes Patient presents with 2 days of epigastric and abdominal pain. He's been vomiting. He's vomiting bile at this time. He denies any melena or hematochezia, however, he states there is some blood when he moves his bowels. The pain is severe in his abdomen 10/10 - constant, burning and pressure. It doesn't radiate towards his back. It is epigastric and radiates more into her his chest. He drinks daily. He denied drinking to that paramedics but states that he's been drinking today to nursing staff. The patient states he gets the shakes when he stops drinking. Patient denies any fevers, chills, productive cough, rash. He denies suicidal or homicidal ideation. Denies seizures. Denies DTs. He was evaluated for similar 05/23 and presented with 9/10 pain which resolved with treatment. A CT abdomen was performed which was negative. He was seen twice in March, initially with acute intoxication and the next day with withdrawal symptoms. He was discharged then with Librium. No Known Allergies (Unverified , 04/01/18) Hx Gastrointestinal Problems: Yes - GASTRITIS interviewed- examined- data reviewed Assessment/Plan Abdominal pain Alcohol intoxication Hypoxia Alcohol withdrawal Tachycardia Gastritis Hydrate- K and Mag and Phos supplement inderal librium protonix Gaston Munguia MD Jun 05, 2018 12:58
[2018-06-05] MEDS: chlordiazePOXIDE 25mg Cap ORAL SCH ×2 (14:03→22:13)
[2018-06-05] MEDS: Propranolol 10mg tab ORAL SCH ×2 (14:03→22:14)
--- NOTE | 2018-06-05 14:44 | Consultation ---
Consult Note Consult Note DICT # [id number] Smooth Verdin MD Jun 05, 2018 14:44
[2018-06-05 16:00] VITALS: BP 148/77
--- NOTE | 2018-06-05 19:45 | Consultation ---
DATE OF CONSULTATION: 06/05/2018 NOTE: "POOR AUDIO QUALITY" HEMATOLOGY/ONCOLOGY CONSULTATION CONSULTING PHYSICIAN: Jignesh Rob M.D. REQUESTING PHYSICIAN: Jennifer Mercer M.D. REASON FOR CONSULTATION: Evaluation of leukopenia, anemia, and thrombocytopenia. ID: Dear Dr. Mercer, The patient is a pleasant 32-year-old male with past medical history significant for alcohol abuse and history of gastritis. He has been here to the ER several times in the past. Upon presentation, noted to have abdominal pain and given IV fluids, Zofran, Pepcid, and morphine. Chest x-ray completed, no infiltrates noted. Lungs are normal as well as the patient's hemoglobin and hematocrit, and the patient was noted to have abdominal pain again, leukopenia, and thrombocytopenia. Hematology service was consulted for evaluation of underlying and treatment. The patient has constant burning pressure-like. It does not radiate to his back. PAST MEDICAL HISTORY: Alcohol abuse . PAST SURGICAL HISTORY: None noted. ALLERGIES: No known drug allergies. FAMILY HISTORY: Noncontributory. REVIEW OF SYSTEMS: CONSTITUTIONAL: No fevers, chills, or night sweats. SKIN: No rashes, bumps, or itching. HEENT: No headache, hearing or visual changes. BREASTS: No lumps, pain, or discharge. PULMONARY: No cough, sputum, or shortness of breath. GASTROINTESTINAL: No nausea, vomiting, or diarrhea. GENITOURINARY: No dysuria, frequency, or urgency. MUSCULOSKELETAL: No joint swelling, muscle pain, or trauma. PHYSICAL EXAMINATION: VITAL SIGNS: Reviewed. GENERAL: No acute distress. PULMONARY: Decreased breath sounds. Some crackles at the bases. CARDIOVASCULAR: Regular rate. No S3 or S4. ABDOMEN: Soft, nontender, and nondistended. EXTREMITIES: He has 1+ edema. LABORATORY AND DIAGNOSTIC DATA: WBC of 5.9, platelet count 143,000, and hemoglobin 13.7. ASSESSMENT AND RECOMMENDATION: 1. Thrombocytopenia likely related to underlying alcohol abuse and myelosuppression. Prior imaging reviewed. Spleen is unremarkable. Liver is unremarkable besides being fatty liver. The patient does have pancreatitis. GI evaluation to consult. The patient has transaminitis. 2. Anemia due to underlying chronic disease. Continue to closely monitor. 3. Leukopenia, likely reactive process. 4. Alcohol abuse, withdrawal. Closely monitor. Continue the patient on Ativan as needed. 5. Shortness of breath. Chest x-ray reviewed, no infiltrates. I appreciate the consultation. Jignesh Rob M.D. DR: [place] JOB#: [id number] CC:
[2018-06-05 20:00] VITALS: BP 139/78
[2018-06-05] MEDS ORDERED: Isovue-300 100ml vial INJ PRN (20:45)
--- NOTE | 2018-06-05 22:13 | Diagnostic Imaging Report ---
EXAM: CT Angiography Chest With Intravenous Contrast CLINICAL HISTORY: SCREEN TECHNIQUE: Axial computed tomographic angiography images of the chest with intravenous contrast using pulmonary embolism protocol. CTDI is 49.27 mGy and DLP is 828 mGy-cm. One or more of the following dose reduction techniques were used: automated exposure control, adjustment of the mA and/or kV according to patient size, use of iterative reconstruction technique. MIP reconstructed images were created and reviewed. Coronal and sagittal reformatted images were created and reviewed. COMPARISON: No relevant prior studies available. FINDINGS: Pulmonary arteries: No pulmonary embolism in main and lobar pulmonary arteries. Segmental pulmonary arteries are poorly evaluated due to suboptimal contrast bolus. Aorta: No acute findings. No thoracic aortic aneurysm. Lungs: Unremarkable. No mass. No consolidation. Pleural space: Unremarkable. No significant effusion. No pneumothorax. Heart: Unremarkable. No cardiomegaly. No significant pericardial effusion. No evidence of RV dysfunction. Bones/joints: No acute fracture. No dislocation. Soft tissues: Unremarkable. Lymph nodes: Unremarkable. No enlarged lymph nodes. Liver: Fatty liver. Gallbladder and bile ducts: Sludge in the gallbladder. IMPRESSION: No pulmonary embolism in main and lobar pulmonary arteries. Sludge in the gallbladder. Fatty liver
--- NOTE | 2018-06-05 22:30 | Consultation ---
DATE OF CONSULTATION: 06/05/2018 PULMONARY CONSULTATION CONSULTING PHYSICIAN: Smooth Verdin M.D. REFERRING PHYSICIAN: Jennifer Mercer M.D. REASON FOR CONSULTATION: Shortness of breath. HISTORY OF PRESENT ILLNESS: The patient is a very unfortunate 32-year-old male with a history of alcohol abuse who presented with epigastric pain and bilious emesis overnight. The pain was 10/10. There was question for some bright red blood per rectum. The pain radiates into his chest from his belly, but no cough. No wheezing. No hemoptysis. He did complain one isolated episode of shortness of breath. He has actually been saturating well the whole time, was transiently put on oxygen in the ER. He has been admitted previously with alcohol intoxication. PAST MEDICAL HISTORY: 1. Alcohol abuse. 2. Gastritis. 3. 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 4. History of alcohol withdrawal in the past. ALLERGIES: No known drug allergies. MEDICATIONS: Prior to admission medications Librium, Pepcid, and Maalox. SOCIAL HISTORY: History of methamphetamine, alcohol abuse. Denies tobacco. FAMILY HISTORY: Noncontributory. REVIEW OF SYSTEMS: Negative other than history of present illness. PHYSICAL EXAMINATION: VITAL SIGNS: Temperature 99, pulse 79, blood pressure 110/88. GENERAL: He has been well-developed and well-nourished male, mild alcohol withdrawal. HEENT: Normocephalic and atraumatic. Oropharynx, moist mucous membranes. NECK: Supple without lymphadenopathy. CHEST: Clear. HEART: Regular. ABDOMEN: Benign. EXTREMITIES: No cyanosis, clubbing, or edema. Mild tremulousness ANCILLARY DATA: White count 7.1, hemoglobin 15.9, and platelet count 212. Sodium 139, potassium 2.8, chloride 101, bicarbonate 27, BUN 2, creatinine 0.7, calcium 7.4, magnesium 1.6, phosphorus 3.4. AST 65, ALT 58, total bilirubin 0.8. CK is 611. Total protein 7.4. LFTs within normal limits. Lipase 303. Urinalysis, 2+ ketones, 1+ blood. Toxicology screen negative. Alcohol 383. ASSESSMENT: The patient is a 32-year-old male with a history of alcoholism, alcohol abuse, prior alcohol withdrawal, seizures, gastritis, methamphetamine abuse, presenting with nausea and vomiting in the setting of acute alcohol intoxication with an isolated episode of shortness of breath, but no hypoxia per se. His respiratory dynamics are stable. His chest x-ray is normal. I doubt there is any acute pulmonary pathology going on, but I will go ahead and check duplex and D-dimer to rule out venous thromboembolism as a cause of this transient from hypoxemia. I will also check a blood gas to better assess his baseline gas exchange. PROBLEM LIST: 1. Transient shortness of breath and hypoxemia likely in the setting of alcohol withdrawal. 2. Alcohol abuse, admitted with intoxication, now with concern for withdrawal. 3. History of alcohol withdrawal in the past. 4. Gastritis. 5. Concern for bright red blood per rectum. 6. History of methamphetamine abuse. TREATMENT PLAN: 1. Optimize pulmonary hygiene/mobilize as tolerated. 2. ABG. 3. Monitor for signs of any respiratory distress. 4. We will check a D-dimer and a duplex. 5. Continued management of alcohol withdrawal per primary team and consultants. 6. DVT prophylaxis, heparin subcutaneous. 7. Aspiration precautions. 8. We will follow with you. Dr. Mercer, thank you for allowing me to assist in care of your patient. If I may be of any assistance in the future, please do not hesitate to ask. David Ward JOB#: [id number] CC:
--- NOTE | 2018-06-05 22:45 | History and Physical Report ---
DATE OF ADMISSION: 06/04/2018 HISTORY OF PRESENT ILLNESS: The patient comes in because of rule out alcohol withdrawal. The patient is a heavy drinker. He also complains of abdominal pain. The patient is having abdominal pain and has tremors and perspiring, has persistent vomiting, not eating for the past 2 to 3 weeks, has history of drug abuse and history of heavy alcohol abuse. The patient is diaphoretic. I informed Dr. Prasad to see the patient and treat this patient for detox, she is already aware. The patient denies hallucinations at this point. PAST MEDICAL HISTORY: History of drug abuse and history of alcohol abuse. PAST SURGICAL HISTORY: None. MEDICATIONS: None. ALLERGIES: None. FAMILY HISTORY: Noncontributory. SOCIAL HISTORY: History of drug abuse. History of alcohol abuse. Denies history of smoking. REVIEW OF SYSTEMS: HEENT: Denies headaches. RESPIRATORY: Denies shortness of breath. Denies cough. CARDIOVASCULAR: Denies chest pain. No orthopnea. GASTROINTESTINAL: Does have nausea and vomiting, abdominal pain for the past three months. Denies rectal bleeding. Denies hematemesis. EXTREMITY: Denies pain. CENTRAL NERVOUS SYSTEM: Denies changes in vision or speech pattern. PHYSICAL EXAMINATION: VITAL SIGNS: Temperature 98, pulse 110, blood pressure 136/87. HEENT: PERRLA. NECK: Supple. CHEST: Clear to auscultation. CARDIOVASCULAR: Tachycardic. GASTROINTESTINAL: Distended, has diffuse tenderness; however, abdomen is soft. No organomegaly. EXTREMITIES: No edema. Reflexes equal on both sides. Moves all four extremities. Alert and oriented x2. The patient does have tremors in the upper extremity and is perspiring. LABORATORY DATA: WBC of 7.1, hemoglobin of 15.9, platelets 212. Sodium 137, potassium 3.3, BUN of 4, creatinine 0.8. Lipase of 303. ASSESSMENT AND PLAN: 1. Rule out alcohol withdrawal syndrome. The patient has tremors and diaphoresis secondary to alcohol withdrawal syndrome, may need to alter the Librium dose. I made Dr. Prasad aware of this, she is already aware. 2. Alcohol withdrawal syndrome. I have asked multiple doctors to see the patient to rule out DT. We will monitor the patient very closely in the telemetry unit. Ali David Mercer DR: Mary JOB#: [id number] CC:
[2018-06-05 23:08] VITALS: BP 136/74
--- NOTE | 2018-06-05 23:47 | Consultation ---
History of Present Illness General Date patient seen: Jun 05, 2018 Chief Complaint: Nausea, Vomiting, and Diarrhea Present Illness HPI 32-year-old male with past medical history significant for alcohol abuse and history of gastritis. He has been here to the ER several times in the past. Allergies: Coded Allergies: No Known Allergies (Unverified , 04/01/18) Medication History Scheduled Chlordiazepoxide Hcl* (Librium*), 10 MG ORAL THREE TIMES A DAY Famotidine (Pepcid Ac), 20 MG PO BID Mag Hydrox/Al Hydrox/Simeth (Maalox Maximum Strength Susp), 10 ML PO Q4HR Patient History Healthcare decision maker Resuscitation status Advanced Directive on File Past Medical/Surgical History Past Medical/Surgical History: (1) Methamphetamine intoxication (2) Gastritis (3) Tachycardia (4) Alcohol withdrawal (5) Alcohol intoxication (6) Hypoxia (7) Abdominal pain Review of Systems Psychiatric: Reports: anxiety, depressed feelings, emotional problems Physical Exam General Appearance: no apparent distress, alert Last 24 Hour Vital Signs Date Time Temp Pulse Resp B/P (MAP) Pulse Ox O2 Delivery O2 Flow Rate FiO2 06/05/18 23:08 98.7 82 20 136/74 (94) 98 98.7 06/05/18 22:14 78 143/76 06/05/18 16:00 98.8 20 148/77 (100) 99 98.8 06/05/18 16:00 63 06/05/18 14:03 83 119/67 06/05/18 12:47 98.9 06/05/18 12:00 89 06/05/18 12:00 99.2 20 119/67 (84) 99 99.2 06/05/18 11:48 98.9 06/05/18 09:00 Room Air 06/05/18 08:00 79 06/05/18 08:00 98.9 20 110/88 (95) 96 98.9 06/05/18 04:00 107 06/05/18 01:19 Room Air 06/05/18 01:02 98.0 110 27 136/87 95 Room Air 2.0 98.0 06/05/18 00:06 98.0 110 27 136/87 95 Room Air 98.0 Intake and Output 06/04/18 06/05/18 19:00 07:00 Intake Total 3000 ml Output Total 0 ml 900 ml Balance 0 ml 2100 ml IV Total 3000 ml Output Urine Total 0 ml 900 ml # Voids 1 Laboratory Tests Test 06/05/18 05:50 06/05/18 14:08 06/05/18 16:55 White Blood Count 5.9 K/UL (4.8-10.8) Red Blood Count 4.40 M/UL (4.70-6.10) L Hemoglobin 13.7 G/DL (14.2-18.0) L Hematocrit 39.2 % (42.0-52.0) L Mean Corpuscular Volume 89 FL (80-99) Mean Corpuscular Hemoglobin 31.1 PG (27.0-31.0) H Mean Corpuscular Hemoglobin Concent 34.9 G/DL (32.0-36.0) Red Cell Distribution Width 10.4 % (11.6-14.8) L Platelet Count 143 K/UL (150-450) L Mean Platelet Volume 6.2 FL (6.5-10.1) L Neutrophils (%) (Auto) 73.3 % (45.0-75.0) Lymphocytes (%) (Auto) 14.3 % (20.0-45.0) L Monocytes (%) (Auto) 10.9 % (1.0-10.0) H Eosinophils (%) (Auto) 0.5 % (0.0-3.0) Basophils (%) (Auto) 1.1 % (0.0-2.0) Sodium Level 139 MMOL/L (136-145) Potassium Level 2.8 MMOL/L (3.5-5.1) L Chloride Level 101 MMOL/L (98-107) Carbon Dioxide Level 27 MMOL/L (21-32) Anion Gap 12 mmol/L (5-15) Blood Urea Nitrogen 2 mg/dL (7-18) L Creatinine 0.7 MG/DL (0.55-1.30) Estimat Glomerular Filtration Rate > 60 mL/min (>60) Glucose Level 116 MG/DL (74-106) H Calcium Level 7.4 MG/DL (8.5-10.1) L Phosphorus Level 3.4 MG/DL (2.5-4.9) Magnesium Level 1.6 MG/DL (1.8-2.4) L Total Bilirubin 0.8 MG/DL (0.2-1.0) Aspartate Amino Transf (AST/SGOT) 65 U/L (15-37) H Alanine Aminotransferase (ALT/SGPT) 58 U/L (12-78) Alkaline Phosphatase 71 U/L (46-116) Total Protein 7.4 G/DL (6.4-8.2) Albumin 3.9 G/DL (3.4-5.0) Globulin 3.5 g/dL Albumin/Globulin Ratio 1.1 (1.0-2.7) Arterial Blood pH 7.436 (7.350-7.450) Arterial Blood Partial Pressure CO2 33.4 mmHg (35.0-45.0) L Arterial Blood Partial Pressure O2 81.7 mmHg (75.0-100.0) Arterial Blood HCO3 22.0 mmol/L (22.0-26.0) Arterial Blood Oxygen Saturation 95.5 % (92.0-98.0) Arterial Blood Base Excess -1.5 Collin Test Positive D-Dimer 1.65 mg/L FEU (0.00-0.49) H Troponin I 0.000 ng/mL (0.000-0.056) Pro-B-Type Natriuretic Peptide 27 pg/mL (0-125) Height (Feet): 5 Height (Inches): 4.00 Weight (Pounds): 150 Medications Current Medications Medications (Trade) Dose Ordered Sig/Juan Route PRN Reason Start Time Stop Time Status Last Admin Dose Admin Acetaminophen (Tylenol) 650 mg Q4H PRN ORAL Mild Pain/Temp > 100.5 06/05/18 01:00 07/05/18 00:59 06/05/18 11:48 Barium Sulfate (Readi-Cat 2) 450 ml NOW PRN ORAL Radiology Procedure 06/04/18 20:15 06/06/18 20:01 Chlordiazepoxide (Librium) 25 mg Q8HR ORAL 06/05/18 14:00 06/12/18 13:59 06/05/18 22:13 Diazepam (Valium) 10 mg Q2H PRN ORAL Alcohol Withdrawal and Anxiety 06/05/18 13:00 06/12/18 12:59 06/05/18 18:59 Folic Acid (Folate) 1 mg DAILY ORAL 06/06/18 09:00 07/06/18 08:59 Gabapentin (Neurontin) 300 mg THREE TIMES A DAY ORAL 06/05/18 13:00 07/05/18 12:59 06/05/18 16:50 Iopamidol (Isovue-300 100ml) 100 ml NOW PRN INJ Radiology Procedure 06/05/18 20:45 06/06/18 09:00 Ondansetron HCl (Zofran) 4 mg Q6H PRN IVP Nausea & Vomiting 06/05/18 01:00 07/05/18 00:59 06/05/18 04:30 Pantoprazole (Protonix) 40 mg EVERY 12 HOURS ORAL 06/05/18 21:00 07/05/18 20:59 06/05/18 22:13 Propranolol HCl (Inderal) 10 mg Q8HR ORAL 06/05/18 14:00 07/05/18 13:59 06/05/18 22:14 Sodium Chloride 1,000 ml @ 100 mls/hr Q10H IV 06/05/18 09:00 07/05/18 08:59 06/05/18 17:23 Thiamine HCl 100 mg/Dextrose 56 ml @ 110 mls/hr DAILY IVPB 06/05/18 09:00 06/06/18 09:31 06/05/18 08:27 Assessment/Plan Status: stable, progressing Assessment/Plan poly substance dependence valium prn the pt is not hold-able Severiano Prasad MD Jun 05, 2018 23:47
[2018-06-06] VITALS: BP 136/74
--- NOTE | 2018-06-06 00:30 | Consultation ---
DATE OF CONSULTATION: 06/05/2018 PAIN MANAGEMENT CONSULTATION CONSULTING PHYSICIAN: Asif Grady M.D. REFERRING PHYSICIAN: Jennifer Mercer M.D. PHYSICIAN DEMOLITION CRANE OPERATOR: Gaby Vallejo CHIEF COMPLAINT: Alcohol abuse. HISTORY OF PRESENT ILLNESS: The patient is a 32-year-old male who is being seen on the telemetry floor of [facility] for initial comprehensive pain management. The patient was admitted under the care of Dr. Mercer who is status post alcohol abuse withdrawals and possible delirium tremens. He is on banana bag, receiving Ativan 1 mg IV every 4 hours as needed for anxiety with minimal relief. At this time, the patient is reporting that he is having abdominal pain with pain throughout his body. We will be increasing Ativan to 1 mg every 2 hours as needed for anxiety and adding Neurontin 300 mg tablets 3 times a day. He seems to understand, and he has no other complaints at this time. PAST MEDICAL HISTORY: Denies. PAST SURGICAL HISTORY: Denies. ALLERGIES: No known drug allergies. MEDICATIONS: Librium, Pepcid, and Maalox. SOCIAL HISTORY: Denies smoking. He is an alcoholic. Denies IV drug abuse. REVIEW OF SYSTEMS: Denies rash, fever, drowsiness, sore throat, or change in hearing or weight. No shortness of breath, chest pain, palpitations, or cough. No bowel or bladder incontinence. No dysuria. He is complaining of generalized abdominal pain and alcohol withdrawal. PHYSICAL EXAMINATION: GENERAL: Alert, awake, and oriented x3. VITAL SIGNS: Blood pressure 110/88, heart rate is 79, oxygen saturation 96%, respiratory rate is 20, and temperature is 98.9 degrees Fahrenheit. HEENT: PERRLA. NECK: Range of motion is full in all directions. No tenderness. No adenopathy. LUNGS: Decreased breath sounds bilaterally. HEART: S1 and S2, regular. ABDOMEN: Benign with tenderness to palpation. BACK: Range of motion is full on flexion and extension. EXTREMITIES: Upper and lower extremity range of motion is decreased due to the patient's condition. No cyanosis. No clubbing. No edema. Sensory is intact. Reflexes are not obtainable. No adenopathy. ASSESSMENT AND PLAN: This is a 32-year-old male with abdominal pain, alcohol abuse, alcohol withdrawals, rule out delirium tremens. The patient will be changed to Ativan 1 mg IV every 2 hours as needed for anxiety and added 300 mg of gabapentin 3 times a day. The patient was discussed with Dr. Grady, and Dr. Grady concurred. We will follow the patient. Thank you very much for the courtesy of this consultation. Asif Grady M.D. DALTON Vallejo DR: DANTE JOB#: [id number] CC: GERMAN
[2018-06-06 04:00] VITALS: BP 129/84
[2018-06-06 05:19] LABS: BASOPHILS % (AUTO) 1.6 % (0.0-2.0); EOSINOPHILS % (AUTO) 3.5 % (0.0-3.0); HEMATOCRIT 41.7 % (42.0-52.0); HEMOGLOBIN 14.3 G/DL (14.2-18.0); LYMPHOCYTES % (AUTO) 21.2 % (20.0-45.0); MEAN CORPUSCULAR VOLUME 90 FL (80-99); MONOCYTES % (AUTO) 8.7 % (1.0-10.0); PLATELET COUNT 124 K/UL (150-450); RED BLOOD COUNT 4.64 M/UL (4.70-6.10); RED CELL DISTRIBUTION WIDTH 10.5 % (11.6-14.8); WHITE BLOOD COUNT 4.2 K/UL (4.8-10.8)
[2018-06-06 05:45] LABS: ALANINE AMINOTRANSFERASE 55 U/L (12-78); ALBUMIN 3.8 G/DL (3.4-5.0); ALBUMIN/GLOBULIN RATIO 1.1 (1.0-2.7); ALKALINE PHOSPHATASE 64 U/L (46-116); ANION GAP 10 mmol/L (5-15); ASPARTATE AMINO TRANSFERASE 57 U/L (15-37); BILIRUBIN,TOTAL 1.3 MG/DL (0.2-1.0); BLOOD UREA NITROGEN 3 mg/dL (7-18); CALCIUM 8.2 MG/DL (8.5-10.1); CARBON DIOXIDE 26 MMOL/L (21-32); CHLORIDE 104 MMOL/L (98-107); CHOLESTEROL 147 MG/DL (< 200); CREATINE KINASE 345 U/L (26-308); CREATININE 0.7 MG/DL (0.55-1.30); GAMMA GLUTAMYL TRANSPEPTIDASE 148 U/L (5-85); HDL CHOLESTEROL 92 MG/DL (40-60); PHOSPHORUS 2.7 MG/DL (2.5-4.9); POTASSIUM 3.4 MMOL/L (3.5-5.1); SODIUM 140 MMOL/L (136-145); TRIGLYCERIDES 37 MG/DL (30-150)
[2018-06-06 05:47] LABS: BILIRUBIN,DIRECT 0.4 MG/DL (0.0-0.3)
[2018-06-06] MEDS: chlordiazePOXIDE 25mg Cap ORAL SCH (06:32)
[2018-06-06] MEDS: Propranolol 10mg tab ORAL SCH ×3 (06:34→22:55)
[2018-06-06 08:00] VITALS: BP 138/93
--- NOTE | 2018-06-06 08:50 | Pulmonology Progress Note ---
Assessment/Plan Problems: (1) Alcohol withdrawal (2) Hypoxia (3) Abdominal pain (4) Methamphetamine intoxication (5) Gastritis Assessment/Plan ASSESSMENT: The patient is a 32-year-old male with a history of alcoholism, alcohol abuse, prior alcohol withdrawal, seizures, gastritis, methamphetamine abuse, presenting with nausea and vomiting in the setting of acute alcohol intoxication with an isolated episode of shortness of breath, but no hypoxia per se. His respiratory dynamics are stable. He had an elevated D-dimer so a CT-A was done which was negative for PE. PROBLEM LIST: 1. Transient shortness of breath and hypoxemia likely in the setting of alcohol withdrawal. 2. Elevated D-dimer S/P negative CT-A, Duplex pending 3. Alcohol abuse, admitted with intoxication, now with concern for withdrawal. 4. History of alcohol withdrawal in the past. 5. Gastritis. 6. Concern for bright red blood per rectum. 7. History of methamphetamine abuse. TREATMENT PLAN: 1. Optimize pulmonary hygiene/mobilize as tolerated. 2. Monitor for signs of any respiratory distress. 3. F/U final duplex report 4. Continued management of alcohol withdrawal per primary team and consultants. 5. DVT prophylaxis, heparin subcutaneous. 6. Aspiration precautions. 7. We will follow with you. Subjective Allergies: Coded Allergies: No Known Allergies (Unverified , 04/01/18) Subjective AFVSS, stable on RA, SB Elevated D-dimer, CT-A neg, Duplex pending 7./ Objective Last 24 Hour Vital Signs Date Time Temp Pulse Resp B/P (MAP) Pulse Ox O2 Delivery O2 Flow Rate FiO2 06/06/18 06:34 87 132/85 06/06/18 04:00 59 06/06/18 04:00 98.7 50 20 129/84 (99) 98 98.7 06/06/18 00:00 51 06/06/18 00:00 98.7 82 20 136/74 (94) 98 98.7 06/05/18 22:14 78 143/76 06/05/18 21:00 Room Air 06/05/18 20:00 82 06/05/18 20:00 98.6 78 20 139/78 (98) 99 98.6 06/05/18 16:00 98.8 20 148/77 (100) 99 98.8 06/05/18 16:00 63 8/17/18 14:03 83 119/67 06/05/18 12:47 98.9 06/05/18 12:00 89 06/05/18 12:00 99.2 20 119/67 (84) 99 99.2 06/05/18 11:48 98.9 06/05/18 09:00 Room Air Intake and Output 06/05/18 06/06/18 19:00 07:00 Intake Total 440 ml 1150 ml Output Total 800 ml Balance -360 ml 1150 ml Intake Oral 440 ml 200 ml IV Total 0 ml 950 ml Output Urine Total 800 ml # Voids 2 General Appearance: WD/WN, no acute distress HEENT: normocephalic, atraumatic, anicteric, mucous membranes moist Respiratory/Chest: chest wall non-tender, lungs clear, normal breath sounds, no respiratory distress, no accessory muscle use Cardiovascular: normal peripheral pulses, regular rhythm, bradycardia Abdomen: normal bowel sounds, soft, non tender, no organomegaly, non distended Extremities: no cyanosis, no clubbing, no edema Laboratory Tests 06/05/18 14:08: Arterial Blood pH 7.436, Arterial Blood Partial Pressure CO2 33.4L, Arterial Blood Partial Pressure O2 81.7, Arterial Blood HCO3 22.0, Arterial Blood Oxygen Saturation 95.5, Arterial Blood Base Excess -1.5, Collin Test Positive 06/05/18 16:55: D-Dimer 1.65H, Troponin I 0.000, Pro-B-Type Natriuretic Peptide 27 06/06/18 04:12: White Blood Count 4.2L, Red Blood Count 4.64L, Hemoglobin 14.3, Hematocrit 41.7L , Mean Corpuscular Volume 90, Mean Corpuscular Hemoglobin 30.8, Mean Corpuscular Hemoglobin Concent 34.3, Red Cell Distribution Width 10.5L, Platelet Count 124L, Mean Platelet Volume 8.1, Neutrophils (%) (Auto) 65.0, Lymphocytes (%) (Auto) 21.2, Monocytes (%) (Auto) 8.7, Eosinophils (%) (Auto) 3.5H, Basophils (%) (Auto) 1.6, Sodium Level 140, Potassium Level 3.4L, Chloride Level 104, Carbon Dioxide Level 26, Anion Gap 10, Blood Urea Nitrogen 3L, Creatinine 0.7, Estimat Glomerular Filtration Rate > 60, Glucose Level 88, Uric Acid 3.7, Calcium Level 8.2L, Phosphorus Level 2.7, Magnesium Level 2.6H, Total Bilirubin 1.3H, Direct Bilirubin 0.4H, Gamma Glutamyl Transpeptidase 148H , Aspartate Amino Transf (AST/SGOT) 57H, Alanine Aminotransferase (ALT/SGPT) 55 , Alkaline Phosphatase 64, Total Creatine Kinase 345H, Total Protein 7.3, Albumin 3.8, Globulin 3.5, Albumin/Globulin Ratio 1.1, Triglycerides Level 37, Cholesterol Level 147, LDL Cholesterol 48, HDL Cholesterol 92H, Cholesterol/HDL Ratio 1.6L, Thyroid Stimulating Hormone (TSH) 2.566 Current Medications Medications (Trade) Dose Ordered Sig/Juan Route PRN Reason Start Time Stop Time Status Last Admin Dose Admin Acetaminophen (Tylenol) 650 mg Q4H PRN ORAL Mild Pain/Temp > 100.5 06/05/18 01:00 07/05/18 00:59 06/05/18 11:48 Barium Sulfate (Readi-Cat 2) 450 ml NOW PRN ORAL Radiology Procedure 06/04/18 20:15 06/06/18 20:01 Chlordiazepoxide (Librium) 25 mg Q8HR ORAL 06/05/18 14:00 06/12/18 13:59 06/06/18 06:32 Diazepam (Valium) 10 mg Q2H PRN ORAL Alcohol Withdrawal and Anxiety 06/05/18 13:00 06/12/18 12:59 06/05/18 18:59 Folic Acid (Folate) 1 mg DAILY ORAL 06/06/18 09:00 07/06/18 08:59 Gabapentin (Neurontin) 300 mg THREE TIMES A DAY ORAL 06/05/18 13:00 07/05/18 12:59 06/05/18 16:50 Iopamidol (Isovue-300 100ml) 100 ml NOW PRN INJ Radiology Procedure 06/05/18 20:45 06/06/18 09:00 Ondansetron HCl (Zofran) 4 mg Q6H PRN IVP Nausea & Vomiting 06/05/18 01:00 07/05/18 00:59 06/06/18 03:29 Pantoprazole (Protonix) 40 mg EVERY 12 HOURS ORAL 06/05/18 21:00 07/05/18 20:59 06/05/18 22:13 Potassium Chloride (K-Dur) 40 meq TWICE A DAY ORAL 06/06/18 09:00 07/06/18 08:59 Propranolol HCl (Inderal) 10 mg Q8HR ORAL 06/05/18 14:00 07/05/18 13:59 06/06/18 06:34 Sodium Chloride 1,000 ml @ 100 mls/hr Q10H IV 06/05/18 09:00 07/05/18 08:59 06/05/18 17:23 Thiamine HCl 100 mg/Dextrose 56 ml @ 110 mls/hr DAILY IVPB 06/05/18 09:00 06/06/18 09:31 06/05/18 08:27 Smooth Verdin MD Jun 06, 2018 08:50
[2018-06-06] MEDS: Thiamine HCl 100 MG in D5W 55 ML IVPB SCH (09:16)
--- NOTE | 2018-06-06 10:52 | Nephrology Progress Note ---
Assessment/Plan Problem List: (1) Alcohol intoxication (2) Tachycardia (3) Alcohol withdrawal (4) Abdominal pain Assessment Abdominal pain resolved Alcohol intoxication Alcohol withdrawal Tachycardia resolved Gastritis Plan stop Hydrate- K and Mag and Phos supplement inderal pepcid DC planning non monitor bed Subjective ROS Limited/Unobtainable: No Objective Objective Last 24 Hour Vital Signs Date Time Temp Pulse Resp B/P (MAP) Pulse Ox O2 Delivery O2 Flow Rate FiO2 06/06/18 08:00 97.7 67 20 138/93 (108) 99 97.7 06/06/18 06:34 87 132/85 06/06/18 04:00 59 06/06/18 04:00 98.7 50 20 129/84 (99) 98 98.7 06/06/18 00:00 51 06/06/18 00:00 98.7 82 20 136/74 (94) 98 98.7 06/05/18 22:14 78 143/76 06/05/18 21:00 Room Air 06/05/18 20:00 82 06/05/18 20:00 98.6 78 20 139/78 (98) 99 98.6 06/05/18 16:00 98.8 20 148/77 (100) 99 98.8 06/05/18 16:00 63 06/05/18 14:03 83 119/67 06/05/18 12:47 98.9 06/05/18 12:00 89 06/05/18 12:00 99.2 20 119/67 (84) 99 99.2 06/05/18 11:48 98.9 Intake and Output 06/05/18 06/06/18 19:00 07:00 Intake Total 440 ml 1150 ml Output Total 800 ml Balance -360 ml 1150 ml Intake Oral 440 ml 200 ml IV Total 0 ml 950 ml Output Urine Total 800 ml # Voids 2 Laboratory Tests 06/05/18 14:08: Arterial Blood pH 7.436, Arterial Blood Partial Pressure CO2 33.4L, Arterial Blood Partial Pressure O2 81.7, Arterial Blood HCO3 22.0, Arterial Blood Oxygen Saturation 95.5, Arterial Blood Base Excess -1.5, Collin Test Positive 06/05/18 16:55: D-Dimer 1.65H, Troponin I 0.000, Pro-B-Type Natriuretic Peptide 27 8/18/18 04:12: White Blood Count 4.2L, Red Blood Count 4.64L, Hemoglobin 14.3, Hematocrit 41.7L , Mean Corpuscular Volume 90, Mean Corpuscular Hemoglobin 30.8, Mean Corpuscular Hemoglobin Concent 34.3, Red Cell Distribution Width 10.5L, Platelet Count 124L, Mean Platelet Volume 8.1, Neutrophils (%) (Auto) 65.0, Lymphocytes (%) (Auto) 21.2, Monocytes (%) (Auto) 8.7, Eosinophils (%) (Auto) 3.5H, Basophils (%) (Auto) 1.6, Sodium Level 140, Potassium Level 3.4L, Chloride Level 104, Carbon Dioxide Level 26, Anion Gap 10, Blood Urea Nitrogen 3L, Creatinine 0.7, Estimat Glomerular Filtration Rate > 60, Glucose Level 88, Uric Acid 3.7, Calcium Level 8.2L, Phosphorus Level 2.7, Magnesium Level 2.6H, Total Bilirubin 1.3H, Direct Bilirubin 0.4H, Gamma Glutamyl Transpeptidase 148H , Aspartate Amino Transf (AST/SGOT) 57H, Alanine Aminotransferase (ALT/SGPT) 55 , Alkaline Phosphatase 64, Total Creatine Kinase 345H, Total Protein 7.3, Albumin 3.8, Globulin 3.5, Albumin/Globulin Ratio 1.1, Triglycerides Level 37, Cholesterol Level 147, LDL Cholesterol 48, HDL Cholesterol 92H, Cholesterol/HDL Ratio 1.6L, Thyroid Stimulating Hormone (TSH) 2.566 Height (Feet): 5 Height (Inches): 4.00 Weight (Pounds): 150 General Appearance: no apparent distress Cardiovascular: normal rate Respiratory/Chest: lungs clear Abdomen: soft Gaston Munguia MD Jun 06, 2018 10:52
[2018-06-06 12:00] VITALS: BP 130/91
--- NOTE | 2018-06-06 12:10 | General Progress Note ---
Assessment/Plan Problem List: (1) Gastritis ICD Codes: K29.70 - Gastritis, unspecified, without bleeding SNOMED: 1382893 Qualifiers: Qualified Codes: K29.20 - Alcoholic gastritis without bleeding (2) Tachycardia ICD Codes: R00.0 - Tachycardia, unspecified SNOMED: 9951120 (3) Alcohol withdrawal ICD Codes: F10.239 - Alcohol dependence with withdrawal, unspecified SNOMED: 215735918 Qualifiers: Qualified Codes: F10.239 - Alcohol dependence with withdrawal, unspecified (4) Alcohol intoxication ICD Codes: F10.929 - Alcohol use, unspecified with intoxication, unspecified SNOMED: 73531193 Qualifiers: Qualified Codes: F10.929 - Alcohol use, unspecified with intoxication, unspecified (5) Abdominal pain ICD Codes: R10.9 - Unspecified abdominal pain SNOMED: 28441758 Qualifiers: Qualified Codes: R10.13 - Epigastric pain Assessment/Plan banana bag start reg diet monitor W/D fu labs Subjective ROS Limited/Unobtainable: Yes Allergies: Coded Allergies: No Known Allergies (Unverified , 04/01/18) Subjective wants to eat Objective Last 24 Hour Vital Signs Date Time Temp Pulse Resp B/P (MAP) Pulse Ox O2 Delivery O2 Flow Rate FiO2 06/06/18 08:00 97.7 67 20 138/93 (108) 99 97.7 06/06/18 06:34 87 132/85 06/06/18 04:00 59 06/06/18 04:00 98.7 50 20 129/84 (99) 98 98.7 06/06/18 00:00 51 06/06/18 00:00 98.7 82 20 136/74 (94) 98 98.7 06/05/18 22:14 78 143/76 06/05/18 21:00 Room Air 06/05/18 20:00 82 06/05/18 20:00 98.6 78 20 139/78 (98) 99 98.6 06/05/18 16:00 98.8 20 148/77 (100) 99 98.8 06/05/18 16:00 63 06/05/18 14:03 83 119/67 06/05/18 12:47 98.9 Intake and Output 06/05/18 06/06/18 19:00 07:00 Intake Total 440 ml 1150 ml Output Total 800 ml Balance -360 ml 1150 ml Intake Oral 440 ml 200 ml IV Total 0 ml 950 ml Output Urine Total 800 ml # Voids 2 Laboratory Tests 06/05/18 14:08: Arterial Blood pH 7.436, Arterial Blood Partial Pressure CO2 33.4L, Arterial Blood Partial Pressure O2 81.7, Arterial Blood HCO3 22.0, Arterial Blood Oxygen Saturation 95.5, Arterial Blood Base Excess -1.5, Collin Test Positive 06/05/18 16:55: D-Dimer 1.65H, Troponin I 0.000, Pro-B-Type Natriuretic Peptide 27 06/06/18 04:12: White Blood Count 4.2L, Red Blood Count 4.64L, Hemoglobin 14.3, Hematocrit 41.7L , Mean Corpuscular Volume 90, Mean Corpuscular Hemoglobin 30.8, Mean Corpuscular Hemoglobin Concent 34.3, Red Cell Distribution Width 10.5L, Platelet Count 124L, Mean Platelet Volume 8.1, Neutrophils (%) (Auto) 65.0, Lymphocytes (%) (Auto) 21.2, Monocytes (%) (Auto) 8.7, Eosinophils (%) (Auto) 3.5H, Basophils (%) (Auto) 1.6, Sodium Level 140, Potassium Level 3.4L, Chloride Level 104, Carbon Dioxide Level 26, Anion Gap 10, Blood Urea Nitrogen 3L, Creatinine 0.7, Estimat Glomerular Filtration Rate > 60, Glucose Level 88, Uric Acid 3.7, Calcium Level 8.2L, Phosphorus Level 2.7, Magnesium Level 2.6H, Total Bilirubin 1.3H, Direct Bilirubin 0.4H, Gamma Glutamyl Transpeptidase 148H , Aspartate Amino Transf (AST/SGOT) 57H, Alanine Aminotransferase (ALT/SGPT) 55 , Alkaline Phosphatase 64, Total Creatine Kinase 345H, Total Protein 7.3, Albumin 3.8, Globulin 3.5, Albumin/Globulin Ratio 1.1, Triglycerides Level 37, Cholesterol Level 147, LDL Cholesterol 48, HDL Cholesterol 92H, Cholesterol/HDL Ratio 1.6L, Thyroid Stimulating Hormone (TSH) 2.566 Height (Feet): 5 Height (Inches): 4.00 Weight (Pounds): 150 General Appearance: alert EENT: PERRL/EOMI Neck: supple Cardiovascular: normal rate Respiratory/Chest: chest wall non-tender Abdomen: normal bowel sounds, non tender, soft Extremities: non-tender Chay Martinez MD Jun 06, 2018 12:10
--- NOTE | 2018-06-06 13:52 | General Progress Note ---
Assessment/Plan Status: stable Assessment/Plan 1. Thrombocytopenia likely related to underlying alcohol abuse and myelosuppression. --> Prior imaging reviewed. Spleen is unremarkable. Liver is unremarkable besides being fatty liver. The patient does have pancreatitis. --> GI evaluation to consult. The patient has transaminitis. --> Continue to monitor PLT count for improvement. --> CTA chest/abd: No pulmonary embolism in main and lobar pulmonary arteries. Sludge in the gallbladder. Fatty liver --> PLT 124 2. Anemia due to underlying chronic disease. --> Currently stable. Hgb above 13 --> Pt on IV iron --> Hgb 14.3 3. Leukopenia, likely reactive process. --> Continue to closely monitor WBC count for improvement. --> Pt NOT currently on abx --> WBC 4.2 4. Alcohol abuse, withdrawal. Closely monitor. Continue the patient on Ativan prn 5. Shortness of breath. Chest x-ray reviewed, no infiltrates. The time the note was entered does not necessarily correspond to the time the patient was seen. Subjective Date patient seen: Jun 06, 2018 ROS Limited/Unobtainable: Yes Hematologic/Lymphatic: Reports: anemia Allergies: Coded Allergies: No Known Allergies (Unverified , 04/01/18) All Systems: reviewed and negative except above Subjective Pt awake and alert. No acute events. CTA reviewed. Objective Last 24 Hour Vital Signs Date Time Temp Pulse Resp B/P (MAP) Pulse Ox O2 Delivery O2 Flow Rate FiO2 06/06/18 13:31 67 138/93 06/06/18 09:00 Room Air 06/06/18 08:00 97.7 67 20 138/93 (108) 99 97.7 06/06/18 06:34 87 132/85 06/06/18 04:00 59 06/06/18 04:00 98.7 50 20 129/84 (99) 98 98.7 06/06/18 00:00 51 06/06/18 00:00 98.7 82 20 136/74 (94) 98 98.7 06/05/18 22:14 78 143/76 06/05/18 21:00 Room Air 06/05/18 20:00 82 06/05/18 20:00 98.6 78 20 139/78 (98) 99 98.6 06/05/18 16:00 98.8 20 148/77 (100) 99 98.8 06/05/18 16:00 63 06/05/18 14:03 83 119/67 Intake and Output 06/05/18 06/06/18 19:00 07:00 Intake Total 440 ml 1150 ml Output Total 800 ml Balance -360 ml 1150 ml Intake Oral 440 ml 200 ml IV Total 0 ml 950 ml Output Urine Total 800 ml # Voids 2 Laboratory Tests 06/05/18 14:08: Arterial Blood pH 7.436, Arterial Blood Partial Pressure CO2 33.4L, Arterial Blood Partial Pressure O2 81.7, Arterial Blood HCO3 22.0, Arterial Blood Oxygen Saturation 95.5, Arterial Blood Base Excess -1.5, Collin Test Positive 06/05/18 16:55: D-Dimer 1.65H, Troponin I 0.000, Pro-B-Type Natriuretic Peptide 27 06/06/18 04:12: White Blood Count 4.2L, Red Blood Count 4.64L, Hemoglobin 14.3, Hematocrit 41.7L , Mean Corpuscular Volume 90, Mean Corpuscular Hemoglobin 30.8, Mean Corpuscular Hemoglobin Concent 34.3, Red Cell Distribution Width 10.5L, Platelet Count 124L, Mean Platelet Volume 8.1, Neutrophils (%) (Auto) 65.0, Lymphocytes (%) (Auto) 21.2, Monocytes (%) (Auto) 8.7, Eosinophils (%) (Auto) 3.5H, Basophils (%) (Auto) 1.6, Sodium Level 140, Potassium Level 3.4L, Chloride Level 104, Carbon Dioxide Level 26, Anion Gap 10, Blood Urea Nitrogen 3L, Creatinine 0.7, Estimat Glomerular Filtration Rate > 60, Glucose Level 88, Uric Acid 3.7, Calcium Level 8.2L, Phosphorus Level 2.7, Magnesium Level 2.6H, Total Bilirubin 1.3H, Direct Bilirubin 0.4H, Gamma Glutamyl Transpeptidase 148H , Aspartate Amino Transf (AST/SGOT) 57H, Alanine Aminotransferase (ALT/SGPT) 55 , Alkaline Phosphatase 64, Total Creatine Kinase 345H, Total Protein 7.3, Albumin 3.8, Globulin 3.5, Albumin/Globulin Ratio 1.1, Triglycerides Level 37, Cholesterol Level 147, LDL Cholesterol 48, HDL Cholesterol 92H, Cholesterol/HDL Ratio 1.6L, Thyroid Stimulating Hormone (TSH) 2.566 Height (Feet): 5 Height (Inches): 4.00 Weight (Pounds): 150 General Appearance: no apparent distress, alert EENT: PERRL/EOMI Neck: normal alignment Cardiovascular: bradycardia Respiratory/Chest: no respiratory distress Abdomen: soft Jignesh Rob MD Jun 06, 2018 13:52
[2018-06-06 16:00] VITALS: BP 128/89
--- NOTE | 2018-06-06 17:27 | General Progress Note ---
Assessment/Plan Problem List: (1) Tachycardia ICD Codes: R00.0 - Tachycardia, unspecified SNOMED: 0945013 (2) Alcohol withdrawal ICD Codes: F10.239 - Alcohol dependence with withdrawal, unspecified SNOMED: 060314916 Qualifiers: Qualified Codes: F10.239 - Alcohol dependence with withdrawal, unspecified (3) Alcohol intoxication ICD Codes: F10.929 - Alcohol use, unspecified with intoxication, unspecified SNOMED: 77418088 Qualifiers: Qualified Codes: F10.929 - Alcohol use, unspecified with intoxication, unspecified (4) Abdominal pain ICD Codes: R10.9 - Unspecified abdominal pain SNOMED: 22155726 Qualifiers: Qualified Codes: R10.13 - Epigastric pain Status: progressing Assessment/Plan afebrile svt improvined etoh withdrawl librium per dr mirza Subjective ROS Limited/Unobtainable: Yes Allergies: Coded Allergies: No Known Allergies (Unverified , 04/01/18) Objective Last 24 Hour Vital Signs Date Time Temp Pulse Resp B/P (MAP) Pulse Ox O2 Delivery O2 Flow Rate FiO2 06/06/18 16:00 97.8 68 20 128/89 (102) 100 97.8 06/06/18 13:31 67 138/93 06/06/18 12:00 97.9 67 21 130/91 (104) 99 97.9 06/06/18 09:00 Room Air 06/06/18 08:00 97.7 67 20 138/93 (108) 99 97.7 06/06/18 08:00 71 06/06/18 06:34 87 132/85 06/06/18 04:00 59 06/06/18 04:00 98.7 50 20 129/84 (99) 98 98.7 06/06/18 00:00 51 06/06/18 00:00 98.7 82 20 136/74 (94) 98 98.7 06/05/18 22:14 78 143/76 06/05/18 21:00 Room Air 06/05/18 20:00 82 06/05/18 20:00 98.6 78 20 139/78 (98) 99 98.6 Intake and Output 06/05/18 06/06/18 19:00 07:00 Intake Total 440 ml 1150 ml Output Total 800 ml Balance -360 ml 1150 ml Intake Oral 440 ml 200 ml IV Total 0 ml 950 ml Output Urine Total 800 ml # Voids 2 Laboratory Tests 06/06/18 04:12: White Blood Count 4.2L, Red Blood Count 4.64L, Hemoglobin 14.3, Hematocrit 41.7L , Mean Corpuscular Volume 90, Mean Corpuscular Hemoglobin 30.8, Mean Corpuscular Hemoglobin Concent 34.3, Red Cell Distribution Width 10.5L, Platelet Count 124L, Mean Platelet Volume 8.1, Neutrophils (%) (Auto) 65.0, Lymphocytes (%) (Auto) 21.2, Monocytes (%) (Auto) 8.7, Eosinophils (%) (Auto) 3.5H, Basophils (%) (Auto) 1.6, Sodium Level 140, Potassium Level 3.4L, Chloride Level 104, Carbon Dioxide Level 26, Anion Gap 10, Blood Urea Nitrogen 3L, Creatinine 0.7, Estimat Glomerular Filtration Rate > 60, Glucose Level 88, Uric Acid 3.7, Calcium Level 8.2L, Phosphorus Level 2.7, Magnesium Level 2.6H, Total Bilirubin 1.3H, Direct Bilirubin 0.4H, Gamma Glutamyl Transpeptidase 148H , Aspartate Amino Transf (AST/SGOT) 57H, Alanine Aminotransferase (ALT/SGPT) 55 , Alkaline Phosphatase 64, Total Creatine Kinase 345H, Total Protein 7.3, Albumin 3.8, Globulin 3.5, Albumin/Globulin Ratio 1.1, Triglycerides Level 37, Cholesterol Level 147, LDL Cholesterol 48, HDL Cholesterol 92H, Cholesterol/HDL Ratio 1.6L, Thyroid Stimulating Hormone (TSH) 2.566 Height (Feet): 5 Height (Inches): 4.00 Weight (Pounds): 150 Cardiovascular: normal rate Respiratory/Chest: lungs clear Abdomen: soft Jennifer Mercer MD Jun 06, 2018 17:27
[2018-06-06 20:00] VITALS: BP 120/74
--- NOTE | 2018-06-06 21:27 | Cardiology Progress Note ---
Assessment/Plan Assessment/Plan The patient is seen and examined, full consult note will be dictated shortly. Objective Last 24 Hour Vital Signs Date Time Temp Pulse Resp B/P (MAP) Pulse Ox O2 Delivery O2 Flow Rate FiO2 06/06/18 20:00 97.9 55 19 120/74 (89) 98 97.9 06/06/18 16:00 97.8 68 20 128/89 (102) 100 97.8 06/06/18 13:31 67 138/93 06/06/18 12:00 97.9 67 21 130/91 (104) 99 97.9 06/06/18 09:00 Room Air 06/06/18 08:00 97.7 67 20 138/93 (108) 99 97.7 06/06/18 08:00 71 06/06/18 06:34 87 132/85 06/06/18 04:00 59 06/06/18 04:00 98.7 50 20 129/84 (99) 98 98.7 06/06/18 00:00 51 06/06/18 00:00 98.7 82 20 136/74 (94) 98 98.7 06/05/18 22:14 78 143/76 Intake and Output 06/05/18 06/06/18 19:00 07:00 Intake Total 440 ml 1150 ml Output Total 800 ml Balance -360 ml 1150 ml Intake Oral 440 ml 200 ml IV Total 0 ml 950 ml Output Urine Total 800 ml # Voids 2 Laboratory Tests Test 06/06/18 04:12 White Blood Count 4.2 K/UL (4.8-10.8) L Red Blood Count 4.64 M/UL (4.70-6.10) L Hemoglobin 14.3 G/DL (14.2-18.0) Hematocrit 41.7 % (42.0-52.0) L Mean Corpuscular Volume 90 FL (80-99) Mean Corpuscular Hemoglobin 30.8 PG (27.0-31.0) Mean Corpuscular Hemoglobin Concent 34.3 G/DL (32.0-36.0) Red Cell Distribution Width 10.5 % (11.6-14.8) L Platelet Count 124 K/UL (150-450) L Mean Platelet Volume 8.1 FL (6.5-10.1) Neutrophils (%) (Auto) 65.0 % (45.0-75.0) Lymphocytes (%) (Auto) 21.2 % (20.0-45.0) Monocytes (%) (Auto) 8.7 % (1.0-10.0) Eosinophils (%) (Auto) 3.5 % (0.0-3.0) H Basophils (%) (Auto) 1.6 % (0.0-2.0) Sodium Level 140 MMOL/L (136-145) Potassium Level 3.4 MMOL/L (3.5-5.1) L Chloride Level 104 MMOL/L (98-107) Carbon Dioxide Level 26 MMOL/L (21-32) Anion Gap 10 mmol/L (5-15) Blood Urea Nitrogen 3 mg/dL (7-18) L Creatinine 0.7 MG/DL (0.55-1.30) Estimat Glomerular Filtration Rate > 60 mL/min (>60) Glucose Level 88 MG/DL (74-106) Uric Acid 3.7 MG/DL (2.6-7.2) Calcium Level 8.2 MG/DL (8.5-10.1) L Phosphorus Level 2.7 MG/DL (2.5-4.9) Magnesium Level 2.6 MG/DL (1.8-2.4) H Total Bilirubin 1.3 MG/DL (0.2-1.0) H Direct Bilirubin 0.4 MG/DL (0.0-0.3) H Gamma Glutamyl Transpeptidase 148 U/L (5-85) H Aspartate Amino Transf (AST/SGOT) 57 U/L (15-37) H Alanine Aminotransferase (ALT/SGPT) 55 U/L (12-78) Alkaline Phosphatase 64 U/L (46-116) Total Creatine Kinase 345 U/L (26-308) H Total Protein 7.3 G/DL (6.4-8.2) Albumin 3.8 G/DL (3.4-5.0) Globulin 3.5 g/dL Albumin/Globulin Ratio 1.1 (1.0-2.7) Triglycerides Level 37 MG/DL (30-150) Cholesterol Level 147 MG/DL (< 200) LDL Cholesterol 48 mg/dL (<100) HDL Cholesterol 92 MG/DL (40-60) H Cholesterol/HDL Ratio 1.6 (3.3-4.4) L Thyroid Stimulating Hormone (TSH) 2.566 uiU/mL (0.358-3.740) Fabien Bravo MD Jun 06, 2018 21:27
[2018-06-07 00:08] VITALS: BP 118/66
[2018-06-07 04:00] VITALS: BP 134/85
[2018-06-07 05:25] LABS: BASOPHILS % (AUTO) 1.5 % (0.0-2.0); HEMATOCRIT 39.7 % (42.0-52.0); HEMOGLOBIN 14.1 G/DL (14.2-18.0); LYMPHOCYTES % (AUTO) 26.6 % (20.0-45.0); MEAN CORPUSCULAR VOLUME 90 FL (80-99); MONOCYTES % (AUTO) 9.1 % (1.0-10.0); NEUTROPHILS % (AUTO) 58.8 % (45.0-75.0); PLATELET COUNT 119 K/UL (150-450); RED BLOOD COUNT 4.43 M/UL (4.70-6.10); RED CELL DISTRIBUTION WIDTH 10.7 % (11.6-14.8); WHITE BLOOD COUNT 4.3 K/UL (4.8-10.8)
[2018-06-07 05:46] LABS: ALANINE AMINOTRANSFERASE 79 U/L (12-78); ALBUMIN 3.4 G/DL (3.4-5.0); ALBUMIN/GLOBULIN RATIO 0.9 (1.0-2.7); ALKALINE PHOSPHATASE 69 U/L (46-116); ANION GAP 11 mmol/L (5-15); ASPARTATE AMINO TRANSFERASE 98 U/L (15-37); BILIRUBIN,TOTAL 0.8 MG/DL (0.2-1.0); BLOOD UREA NITROGEN 12 mg/dL (7-18); CARBON DIOXIDE 26 MMOL/L (21-32); CHLORIDE 104 MMOL/L (98-107); CREATININE 0.7 MG/DL (0.55-1.30); POTASSIUM 3.7 MMOL/L (3.5-5.1); SODIUM 141 MMOL/L (136-145)
[2018-06-07] MEDS: Propranolol 10mg tab ORAL SCH (06:34)
[2018-06-07 08:00] VITALS: BP 128/81
--- NOTE | 2018-06-07 08:02 | General Progress Note ---
Assessment/Plan Problem List: (1) Gastritis ICD Codes: K29.70 - Gastritis, unspecified, without bleeding SNOMED: 4605282 Qualifiers: Qualified Codes: K29.20 - Alcoholic gastritis without bleeding (2) Tachycardia ICD Codes: R00.0 - Tachycardia, unspecified SNOMED: 6737451 (3) Alcohol withdrawal ICD Codes: F10.239 - Alcohol dependence with withdrawal, unspecified SNOMED: 665584553 Qualifiers: Qualified Codes: F10.239 - Alcohol dependence with withdrawal, unspecified (4) Alcohol intoxication ICD Codes: F10.929 - Alcohol use, unspecified with intoxication, unspecified SNOMED: 03315131 Qualifiers: Qualified Codes: F10.929 - Alcohol use, unspecified with intoxication, unspecified (5) Abdominal pain ICD Codes: R10.9 - Unspecified abdominal pain SNOMED: 53711989 Qualifiers: Qualified Codes: R10.13 - Epigastric pain Assessment/Plan banana bag>>> will dc on reg diet monitor W/D fu labs Subjective ROS Limited/Unobtainable: Yes Allergies: Coded Allergies: No Known Allergies (Unverified , 04/01/18) Subjective t Objective Last 24 Hour Vital Signs Date Time Temp Pulse Resp B/P (MAP) Pulse Ox O2 Delivery O2 Flow Rate FiO2 06/07/18 06:34 60 132/87 06/07/18 04:00 97.7 54 18 134/85 (101) 98 97.7 06/07/18 00:08 98.8 63 18 118/66 (83) 97 98.8 06/06/18 22:55 66 128/72 06/06/18 20:04 Room Air 06/06/18 20:00 97.9 55 19 120/74 (89) 98 97.9 06/06/18 16:00 97.8 68 20 128/89 (102) 100 97.8 06/06/18 13:31 67 138/93 06/06/18 12:00 97.9 67 21 130/91 (104) 99 97.9 06/06/18 09:00 Room Air Intake and Output 06/06/18 06/07/18 19:00 07:00 Intake Total 700 ml 520 ml Output Total 2 ml Balance 698 ml 520 ml Intake Oral 700 ml 520 ml Output Urine Total 2 ml # Voids 5 Laboratory Tests 06/07/18 04:05: White Blood Count 4.3L, Red Blood Count 4.43L, Hemoglobin 14.1L, Hematocrit 39.7L, Mean Corpuscular Volume 90, Mean Corpuscular Hemoglobin 31.9H, Mean Corpuscular Hemoglobin Concent 35.6, Red Cell Distribution Width 10.7L, Platelet Count 119L, Mean Platelet Volume 7.6, Neutrophils (%) (Auto) 58.8, Lymphocytes (%) (Auto) 26.6, Monocytes (%) (Auto) 9.1, Eosinophils (%) (Auto) 4.0H, Basophils (%) (Auto) 1.5, Sodium Level 141, Potassium Level 3.7, Chloride Level 104, Carbon Dioxide Level 26, Anion Gap 11, Blood Urea Nitrogen 12, Creatinine 0.7, Estimat Glomerular Filtration Rate > 60, Glucose Level 94, Calcium Level 8.0L, Total Bilirubin 0.8, Aspartate Amino Transf (AST/SGOT) 98H, Alanine Aminotransferase (ALT/SGPT) 79H, Alkaline Phosphatase 69, Total Protein 7.2, Albumin 3.4, Globulin 3.8, Albumin/Globulin Ratio 0.9L Height (Feet): 5 Height (Inches): 4.00 Weight (Pounds): 150 General Appearance: alert EENT: normal ENT inspection Neck: supple Cardiovascular: normal rate Respiratory/Chest: decreased breath sounds Abdomen: normal bowel sounds, non tender, soft Extremities: non-tender Chay Martinez MD Jun 07, 2018 08:02
[2018-06-07] MEDS: Thiamine 100mg tab ORAL SCH (08:43)
[2018-06-07] MEDS ORDERED: Thiamine 100mg tab ORAL SCH (09:00)
--- NOTE | 2018-06-07 11:15 | Nephrology Progress Note ---
Assessment/Plan Problem List: (1) Alcohol intoxication (2) Tachycardia (3) Alcohol withdrawal (4) Abdominal pain Assessment Abdominal pain resolved Alcohol intoxication Alcohol withdrawal Tachycardia resolved Gastritis Plan stop Hydrate- K and Mag and Phos supplement inderal pepcid DC planning non monitor bed Subjective ROS Limited/Unobtainable: No Objective Objective Last 24 Hour Vital Signs Date Time Temp Pulse Resp B/P (MAP) Pulse Ox O2 Delivery O2 Flow Rate FiO2 06/07/18 08:13 Room Air 06/07/18 08:00 97.3 64 20 128/81 (97) 100 97.3 06/07/18 06:34 60 132/87 06/07/18 04:00 97.7 54 18 134/85 (101) 98 97.7 06/07/18 00:08 98.8 63 18 118/66 (83) 97 98.8 06/06/18 22:55 66 128/72 06/06/18 20:04 Room Air 06/06/18 20:00 97.9 55 19 120/74 (89) 98 97.9 06/06/18 16:00 97.8 68 20 128/89 (102) 100 97.8 06/06/18 13:31 67 138/93 06/06/18 12:00 97.9 67 21 130/91 (104) 99 97.9 Intake and Output 06/06/18 06/07/18 19:00 07:00 Intake Total 700 ml 520 ml Output Total 2 ml Balance 698 ml 520 ml Intake Oral 700 ml 520 ml Output Urine Total 2 ml # Voids 5 Laboratory Tests 06/07/18 04:05: White Blood Count 4.3L, Red Blood Count 4.43L, Hemoglobin 14.1L, Hematocrit 39.7L, Mean Corpuscular Volume 90, Mean Corpuscular Hemoglobin 31.9H, Mean Corpuscular Hemoglobin Concent 35.6, Red Cell Distribution Width 10.7L, Platelet Count 119L, Mean Platelet Volume 7.6, Neutrophils (%) (Auto) 58.8, Lymphocytes (%) (Auto) 26.6, Monocytes (%) (Auto) 9.1, Eosinophils (%) (Auto) 4.0H, Basophils (%) (Auto) 1.5, Sodium Level 141, Potassium Level 3.7, Chloride Level 104, Carbon Dioxide Level 26, Anion Gap 11, Blood Urea Nitrogen 12, Creatinine 0.7, Estimat Glomerular Filtration Rate > 60, Glucose Level 94, Calcium Level 8.0L, Total Bilirubin 0.8, Aspartate Amino Transf (AST/SGOT) 98H, Alanine Aminotransferase (ALT/SGPT) 79H, Alkaline Phosphatase 69, Total Protein 7.2, Albumin 3.4, Globulin 3.8, Albumin/Globulin Ratio 0.9L Height (Feet): 5 Height (Inches): 4.00 Weight (Pounds): 150 General Appearance: no apparent distress Objective no change Gaston Munguia MD Jun 07, 2018 11:15
[2018-06-07 11:27] VITALS: BP 126/72
--- NOTE | 2018-06-07 14:50 | General Progress Note ---
Assessment/Plan Problem List: (1) Tachycardia ICD Codes: R00.0 - Tachycardia, unspecified SNOMED: 9413494 (2) Alcohol withdrawal ICD Codes: F10.239 - Alcohol dependence with withdrawal, unspecified SNOMED: 728063251 Qualifiers: Qualified Codes: F10.239 - Alcohol dependence with withdrawal, unspecified (3) Alcohol intoxication ICD Codes: F10.929 - Alcohol use, unspecified with intoxication, unspecified SNOMED: 31463095 Qualifiers: Qualified Codes: F10.929 - Alcohol use, unspecified with intoxication, unspecified (4) Abdominal pain ICD Codes: R10.9 - Unspecified abdominal pain SNOMED: 40386738 Qualifiers: Qualified Codes: R10.13 - Epigastric pain Status: progressing Assessment/Plan dc in am afebrile no sz etoh withdrawl improved Subjective ROS Limited/Unobtainable: Yes Allergies: Coded Allergies: No Known Allergies (Unverified , 04/01/18) Objective Last 24 Hour Vital Signs Date Time Temp Pulse Resp B/P (MAP) Pulse Ox O2 Delivery O2 Flow Rate FiO2 06/07/18 11:27 99.0 63 20 126/72 (90) 98 99.0 06/07/18 08:13 Room Air 06/07/18 08:00 97.3 64 20 128/81 (97) 100 97.3 06/07/18 06:34 60 132/87 06/07/18 04:00 97.7 54 18 134/85 (101) 98 97.7 06/07/18 00:08 98.8 63 18 118/66 (83) 97 98.8 06/06/18 22:55 66 128/72 06/06/18 20:04 Room Air 06/06/18 20:00 97.9 55 19 120/74 (89) 98 97.9 06/06/18 16:00 97.8 68 20 128/89 (102) 100 97.8 Intake and Output 06/06/18 06/07/18 19:00 07:00 Intake Total 700 ml 520 ml Output Total 2 ml Balance 698 ml 520 ml Intake Oral 700 ml 520 ml Output Urine Total 2 ml # Voids 5 Laboratory Tests 06/07/18 04:05: White Blood Count 4.3L, Red Blood Count 4.43L, Hemoglobin 14.1L, Hematocrit 39.7L, Mean Corpuscular Volume 90, Mean Corpuscular Hemoglobin 31.9H, Mean Corpuscular Hemoglobin Concent 35.6, Red Cell Distribution Width 10.7L, Platelet Count 119L, Mean Platelet Volume 7.6, Neutrophils (%) (Auto) 58.8, Lymphocytes (%) (Auto) 26.6, Monocytes (%) (Auto) 9.1, Eosinophils (%) (Auto) 4.0H, Basophils (%) (Auto) 1.5, Sodium Level 141, Potassium Level 3.7, Chloride Level 104, Carbon Dioxide Level 26, Anion Gap 11, Blood Urea Nitrogen 12, Creatinine 0.7, Estimat Glomerular Filtration Rate > 60, Glucose Level 94, Calcium Level 8.0L, Total Bilirubin 0.8, Aspartate Amino Transf (AST/SGOT) 98H, Alanine Aminotransferase (ALT/SGPT) 79H, Alkaline Phosphatase 69, Total Protein 7.2, Albumin 3.4, Globulin 3.8, Albumin/Globulin Ratio 0.9L Height (Feet): 5 Height (Inches): 4.00 Weight (Pounds): 150 Cardiovascular: normal rate Respiratory/Chest: lungs clear Abdomen: soft Jennifer Mercer MD Jun 07, 2018 14:50
[2018-06-07 16:00] VITALS: BP 124/76
[2018-06-07 20:00] VITALS: BP 131/78
--- NOTE | 2018-06-07 23:47 | Cardiology Progress Note ---
Assessment/Plan Assessment/Plan 1. Sinus tachycardia likely due to hypovolemia due to alcohol diuresis or poor p.o. intake associated with alcohol intoxication, continue aggressive hydration and electrolyte replacement. 2. History of polysubstance abuse. Subjective Subjective No cardiac events. Not on the telemetry bed. Objective Last 24 Hour Vital Signs Date Time Temp Pulse Resp B/P (MAP) Pulse Ox O2 Delivery O2 Flow Rate FiO2 06/07/18 20:00 99.0 70 19 131/78 (95) 98 99.0 06/07/18 16:00 97.9 67 20 124/76 (92) 99 97.9 06/07/18 11:27 99.0 63 20 126/72 (90) 98 99.0 06/07/18 08:13 Room Air 06/07/18 08:00 97.3 64 20 128/81 (97) 100 97.3 06/07/18 06:34 60 132/87 06/07/18 04:00 97.7 54 18 134/85 (101) 98 97.7 06/07/18 00:08 98.8 63 18 118/66 (83) 97 98.8 Intake and Output 06/06/18 06/07/18 19:00 07:00 Intake Total 700 ml 520 ml Output Total 2 ml Balance 698 ml 520 ml Intake Oral 700 ml 520 ml Output Urine Total 2 ml # Voids 5 Laboratory Tests Test 06/07/18 04:05 White Blood Count 4.3 K/UL (4.8-10.8) L Red Blood Count 4.43 M/UL (4.70-6.10) L Hemoglobin 14.1 G/DL (14.2-18.0) L Hematocrit 39.7 % (42.0-52.0) L Mean Corpuscular Volume 90 FL (80-99) Mean Corpuscular Hemoglobin 31.9 PG (27.0-31.0) H Mean Corpuscular Hemoglobin Concent 35.6 G/DL (32.0-36.0) Red Cell Distribution Width 10.7 % (11.6-14.8) L Platelet Count 119 K/UL (150-450) L Mean Platelet Volume 7.6 FL (6.5-10.1) Neutrophils (%) (Auto) 58.8 % (45.0-75.0) Lymphocytes (%) (Auto) 26.6 % (20.0-45.0) Monocytes (%) (Auto) 9.1 % (1.0-10.0) Eosinophils (%) (Auto) 4.0 % (0.0-3.0) H Basophils (%) (Auto) 1.5 % (0.0-2.0) Sodium Level 141 MMOL/L (136-145) Potassium Level 3.7 MMOL/L (3.5-5.1) Chloride Level 104 MMOL/L (98-107) Carbon Dioxide Level 26 MMOL/L (21-32) Anion Gap 11 mmol/L (5-15) Blood Urea Nitrogen 12 mg/dL (7-18) Creatinine 0.7 MG/DL (0.55-1.30) Estimat Glomerular Filtration Rate > 60 mL/min (>60) Glucose Level 94 MG/DL (74-106) Calcium Level 8.0 MG/DL (8.5-10.1) L Total Bilirubin 0.8 MG/DL (0.2-1.0) Aspartate Amino Transf (AST/SGOT) 98 U/L (15-37) H Alanine Aminotransferase (ALT/SGPT) 79 U/L (12-78) H Alkaline Phosphatase 69 U/L (46-116) Total Protein 7.2 G/DL (6.4-8.2) Albumin 3.4 G/DL (3.4-5.0) Globulin 3.8 g/dL Albumin/Globulin Ratio 0.9 (1.0-2.7) L Objective HEENT: Atraumatic, normocephalic. Anicteric. Pupils are equal, round, and react to light and accommodation. Extraocular muscles intact. NECK: JVP less than 5 cm. No carotid bruit. Carotid upstrokes 2+ bilaterally. CARDIOVASCULAR SYSTEM: Normal S1, S2. Regular rate and rhythm. Tachycardic. No murmurs, gallops, or rubs. PMI is at fourth intercostal space in the midclavicular line. LUNGS: Clear to auscultation bilaterally. ABDOMEN: Soft, nontender, and nondistended. No hepatosplenomegaly. Positive bowel sounds. EXTREMITIES: No evidence of edema, clubbing, or cyanosis. Fabien Bravo MD Jun 07, 2018 23:47
[2018-06-08] VITALS: BP 124/74
--- NOTE | 2018-06-08 02:15 | Consultation ---
DATE OF CONSULTATION: 06/06/2018 CARDIOLOGY CONSULTATION CONSULTING PHYSICIAN: Fabien Bravo M.D. REFERRING PHYSICIAN: Jennifer Mercer M.D. REASON FOR CONSULTATION: Management of tachycardia. HISTORY OF PRESENT ILLNESS: The patient is a very unfortunate 32-year-old white gentleman, who presents to the hospital with two days' complaint of epigastric and abdominal pain, associated vomiting of bilious material as well as complaints of hematochezia. Apparently, the patient has been drinking alcohol on a daily basis and has been complaining about tremors when he stops drinking. He has been seen in this facility in the past with acute intoxication with alcohol as well as withdrawal symptoms. Apparently, CT of abdomen done in the past had shown no abnormalities. On arrival to the hospital, initial blood pressure was 151/99 mmHg and pulse rate of 120. The patient was admitted to telemetry for further evaluation and management. Cardiology consultation was made at request of Dr. Mercer for assessment of tachycardia. PAST MEDICAL HISTORY: Including gastritis, history of alcohol intoxication, history of polysubstance abuse. SOCIAL HISTORY: Alcohol and drug such as amphetamine in the past. Denies any tobacco. He is and currently not employed. PAST SURGICAL HISTORY: None. FAMILY HISTORY: No premature coronary artery disease in first-degree relatives. MEDICATIONS: A list of medications at home, Librium 10 mg p.o. 3 times a day, Pepcid 20 mg p.o. twice daily, and Maalox magnesium spring suspension 10 mL p.o. q.4 h. REVIEW OF SYSTEMS: A 12-system review done and essentially negative except what was mentioned in history of present illness. ALLERGIES: No known drug allergies. PHYSICAL EXAMINATION: VITAL SIGNS: Blood pressure is 151/99, pulse of 120, respiration of 18, O2 saturation 97% on room air, and temperature 97.3 degrees Fahrenheit. GENERAL: This is a very unfortunate 32-year-old gentleman in no apparent respiratory distress. Alert and oriented x4. HEENT: Atraumatic, normocephalic. Anicteric. Pupils are equal, round, and react to light and accommodation. Extraocular muscles intact. NECK: JVP less than 5 cm. No carotid bruit. Carotid upstrokes 2+ bilaterally. CARDIOVASCULAR SYSTEM: Normal S1, S2. Regular rate and rhythm. Tachycardic. No murmurs, gallops, or rubs. PMI is at fourth intercostal space in the midclavicular line. LUNGS: Clear to auscultation bilaterally. ABDOMEN: Soft, nontender, and nondistended. No hepatosplenomegaly. Positive bowel sounds. EXTREMITIES: No evidence of edema, clubbing, or cyanosis. LABORATORY FINDINGS: WBC 7.1, hemoglobin 15.9, hematocrit 44.1, and platelet count 212,000. Sodium 137, potassium is 3.3, chloride 98, bicarbonate 21, BUN of 4, creatinine 0.8, glucose 147, calcium is 8.9. AST was 83, ALT 69. Troponin I was 0.0. ProBNP was 27. Triglycerides LDL 48, HDL 92. INR was 1.0. Toxicology, urine toxicology was negative. Ethyl alcohol which was 383. DIAGNOSTIC DATA: A chest x-ray showed no acute cardiopulmonary disease. ASSESSMENT AND PLAN: The patient is a very unfortunate 32-year-old gentleman seen in Cardiology consultation at the request of Dr. Mercer. 1. Sinus tachycardia. A 12-lead electrocardiogram verified, this could be secondary to alcohol diuresis or poor p.o. intake associated with alcohol intoxication. The patient will benefit from aggressive hydration with banana bag, magnesium and phosphorus supplementation, and propranolol. 2. History of polysubstance abuse. I would like to thank Dr. Mercer for allowing me to participate in the care of this patient. Fabien Bravo M.D. DR: Esha JOB#: [id number] CC: GERMAN
[2018-06-08 04:00] VITALS: BP 122/79
[2018-06-08 08:00] VITALS: BP 135/65
[2018-06-08] MEDS: Thiamine 100mg tab ORAL SCH (09:09)
--- NOTE | 2018-06-08 10:19 | GI Progress Note ---
Assessment/Plan Problems: (1) Gastritis ICD Codes: K29.70 - Gastritis, unspecified, without bleeding SNOMED: 5913190 Qualifiers: Qualified Codes: K29.20 - Alcoholic gastritis without bleeding (2) Alcohol withdrawal ICD Codes: F10.239 - Alcohol dependence with withdrawal, unspecified SNOMED: 894123349 Qualifiers: Qualified Codes: F10.239 - Alcohol dependence with withdrawal, unspecified (3) Alcohol intoxication ICD Codes: F10.929 - Alcohol use, unspecified with intoxication, unspecified SNOMED: 33148273 Qualifiers: Qualified Codes: F10.929 - Alcohol use, unspecified with intoxication, unspecified (4) Hypoxia ICD Codes: R09.02 - Hypoxemia SNOMED: 839985669 (5) Abdominal pain ICD Codes: R10.9 - Unspecified abdominal pain SNOMED: 80717714 Qualifiers: Qualified Codes: R10.13 - Epigastric pain (6) Methamphetamine intoxication ICD Codes: F15.929 - Other stimulant use, unspecified with intoxication, unspecified SNOMED: 20527947389187914 Status: stable Status Narrative Discussed with Dr. Martinez. Assessment/Plan okay for DC per GI standpoint banana bag on reg diet monitor W/D fu labs The patient was seen and examined at bedside and all new and available data was reviewed in the patients chart. I agree with the above findings, impression and plan. (Patient seen earlier today. Signature stamp does not reflect patient encounter time.). - Chay Martinez MD Subjective Gastrointestinal/Abdominal: Reports: no symptoms Objective Last 24 Hour Vital Signs Date Time Temp Pulse Resp B/P (MAP) Pulse Ox O2 Delivery O2 Flow Rate FiO2 06/08/18 09:00 Room Air 06/08/18 08:00 98.1 90 20 135/65 (88) 100 98.1 06/08/18 04:00 98.0 76 18 122/79 (93) 99 98.0 06/08/18 00:00 98.1 52 17 124/74 (91) 98 98.1 06/07/18 21:00 Room Air 06/07/18 20:00 99.0 70 19 131/78 (95) 98 99.0 06/07/18 16:00 97.9 67 20 124/76 (92) 99 97.9 06/07/18 11:27 99.0 63 20 126/72 (90) 98 99.0 Intake and Output 06/07/18 06/08/18 18:59 06:59 Intake Total 1500 ml 480 ml Balance 1500 ml 480 ml Intake Oral 1500 ml 480 ml # Voids 4 2 # Bowel Movements 1 Height (Feet): 5 Height (Inches): 4.00 Weight (Pounds): 150 General Appearance: WD/WN, no apparent distress, alert Cardiovascular: normal rate Respiratory/Chest: normal breath sounds, no respiratory distress Abdominal Exam: normal bowel sounds, non tender, soft Extremities: normal range of motion, non-tender Leeroy Harman NP Jun 08, 2018 10:19
--- NOTE | 2018-06-08 23:49 | Cardiology Progress Note ---
Assessment/Plan Assessment/Plan 1. Sinus tachycardia secondary to hypovolemia likely due to alcohol diuresis or poor p.o. intake associated with alcohol intoxication. The patient will benefit from aggressive hydration with banana bag, magnesium and phosphorus supplementation and possibly propranolol. 2. History of polysubstance abuse. Subjective Subjective No cardiac events. Not on the telemetry unit. Objective Last 24 Hour Vital Signs Date Time Temp Pulse Resp B/P (MAP) Pulse Ox O2 Delivery O2 Flow Rate FiO2 06/08/18 09:00 Room Air 06/08/18 08:00 98.1 90 20 135/65 (88) 100 98.1 06/08/18 04:00 98.0 76 18 122/79 (93) 99 98.0 06/08/18 00:00 98.1 52 17 124/74 (91) 98 98.1 Intake and Output 06/07/18 06/08/18 19:00 07:00 Intake Total 1500 ml 480 ml Balance 1500 ml 480 ml Intake Oral 1500 ml 480 ml # Voids 4 2 # Bowel Movements 1 Objective HEENT: Atraumatic, normocephalic. Anicteric. Pupils are equal, round, and react to light and accommodation. Extraocular muscles intact. NECK: JVP less than 5 cm. No carotid bruit. Carotid upstrokes 2+ bilaterally. CARDIOVASCULAR SYSTEM: Normal S1, S2. Regular rate and rhythm. Tachycardic. No murmurs, gallops, or rubs. PMI is at fourth intercostal space in the midclavicular line. LUNGS: Clear to auscultation bilaterally. ABDOMEN: Soft, nontender, and nondistended. No hepatosplenomegaly. Positive bowel sounds. EXTREMITIES: No evidence of edema, clubbing, or cyanosis. Fabien Bravo MD Jun 08, 2018 23:49
--- NOTE | 2018-06-10 10:08 | Discharge Summary ---
Discharge Summary Discharge Summary _ DATE OF ADMISSION: 06/04/2018 DATE OF DISCHARGE: 06/08/2018 REASON FOR ADMISSION: 32 years old male with past medical history significant for alcoholic gastritis , polysubstance dependency and abuse (alcohol and methamphetamine ), presented with abdominal pain. Patient reported nausea and vomiting. Patient reported vomiting bile. No melena , no hematochezia. Pain located in epigastric area, non radiating constant, burning, pressure- like. Patient admitted to drinking alcohol on daily basis. He denied fever, chills ,cough. He denied suicidal or homicidal ideations. He denied seizures Vital signs revealed tachycardia. Patient required placement of supplemental oxygen to maintain proper pulse oximetry. Laboratory workup revealed no leukocytosis, stable hemoglobin and hematocrit. Potassium 3.3. AST 83, ALT 69, lipase within normal limits. S Serum alcohol level 383. Urine toxicology screen was negative. Chest X-ray revealed no acute cardiopulmonary pathology. Abdominal x-ray revealed no acute intra-abdominal pathology Patient admitted with diagnoses of abdominal pain , alcohol abuse with intoxication , alcohol withdrawal, gastritis, hypoxia , history of amphetamine abuse. CONSULTANTS: mobile nurse Dr. Bravo pulmonary GI specialist print line supervisor Dr. Munguia title attorney/oncologist Dr. Rob psychiatrist pain specialist Dr. Grady HOSPITAL COURSE: Patient admitted to monitored bed initially. Patient started on the IV hydration with vitamins supplement /banana bag. Supplemental oxygen provided as needed to keep pulse oximetry above 92%. Pulmonary toilet was on standby as needed. D-dimer was elevated-1.65. Venous duplex bilateral lower extremity was negative. CTA of the chest revealed no evidence of pulmonary emboli. Aspiration precautions maintained. Ativan and Valium were on board as needed. No evidence of delirium tremens. Psychiatrist and pain specialist closely followed. Pain management was addressed. Patient initially started on liquid diet , GI closely followed . Antiemetics provided as needed. GI prophylaxis provided. Lipid panel and TSH within normal limits. LFT closely monitored. No further vomiting, Hemoglobin and hematocrit remained stable, mild anemia, no trend down. According to title attorney, anemia due to underlying chronic disease. Laboratory work revealed evidence of thrombocytopenia. Platelet count was clsoely monitored. Thrombocytopenia likely due to alcohol abuse and underlying myelosuppression, as per title attorney. Prior imaging with unremarkable spleen and liver ( except fatty changes). Diet was advanced to regular, patient was able to tolerate diet. Psychiatrist seen the patient and stated the patient was not holdable. [place] Supervisor closely followed. Renal parameters and electrolytes were closely monitored. Electrolytes replaced as needed. Nephrotoxins were avoided. Prior to discharge , all electrolytes stable. IV fluids discontinued. Patient was on oral thiamine and folic acid. Stock Blender followed. According to mobile nurse, initial sinus tachycardia was likely due to hypovolemia due to alcoholic diuresis and /or poor oral intake associated with alcohol intoxication. Telemetry revealed no acute ischemic changes ,troponin was negative. Patient clinically improved . No further vomiting. Abdominal pain resolved,. Hypoxia was transient, likely due to alcohol intoxication and withdrawal, and it resolved. Pulse oximetry stable on room air prior to discharge. Patient was counseled on abstinence from street drugs and alcohol . Patient was stable for discharge. FINAL DIAGNOSES: Alcohol intoxication Alcohol withdrawal Gastritis Abdominal pain with nausea and vomiting, likely due to alcoholic gastritis and alcohol intoxication Gastritis Hypoxia-resolved Mild anemia of chronic disease Thrombocytopenia History amphetamine abuse DISCHARGE MEDICATIONS: See Medication Reconciliation list. DISCHARGE INSTRUCTIONS: Patient was discharged home. Follow up with primary care provider in one to 2 weeks. Patient counseled on abstinence from alcohol and avoidance of street drugs. I have been assigned to dictate discharge summary for this account. I was not involved in the patient's management. Shantelle Padron NP Jun 10, 2018 10:08
--- NOTE | 2018-06-12 00:53 | Cardiology Report ---
APPROVED REPORT EKG Measurement Heart [id number] ID [id number] Sinus tachycardia Otherwise normal ECG
== END 2018-06-08 11:32 | disposition home or self-care (01) | DRG 775 ==
LOC: EDBD 17:51 → EMR 18:27 → 2E 21:18 → EDBEDREQ 06-05 00:30 → 3E 06-06 16:10
DX: F10.239 Alcohol dependence with withdrawal, unspecified (principal); F10.229 Alcohol dependence with intoxication, unspecified; K85.90 Acute pancreatitis without necrosis or infection, unspecified; D69.6 Thrombocytopenia, unspecified; E86.1 Hypovolemia; R09.02 Hypoxemia; R00.0 Tachycardia, unspecified; F15.11 Other stimulant abuse, in remission; K76.0 Fatty (change of) liver, not elsewhere classified; R10.9 Unspecified abdominal pain; F19.21 Other psychoactive substance dependence, in remission; D63.8 Anemia in other chronic diseases classified elsewhere; K29.20 Alcoholic gastritis without bleeding
CPT/HCPCS: 36415; 36600; 71045; 71275; 74018; 80053; 80061; 80307; 80329; 81003; 82248; 82550; 82803; 82977; 83690; 83735; 83880; 84100; 84443; 84484; 84550; 85025; 85379; 85610; 85730; 93005; 93970; J2405; J8499

== ENCOUNTER 2018-09-20 20:50 | Emergency (ER) | payer MEDICAID ==
[~2018-09-20] VITALS: Ht 172.7 cm; Wt 72.6 kg
--- NOTE | 2018-09-20 21:06 | Emergency Room Report ---
History of Present Illness General Chief Complaint: Chest Pain Source: Patient, Medical Record Present Illness HPI Is a 33 male with a history of methamphetamine and alcohol abuse. He presents with chief complaint of right chest pain for last 2 days. No fever chills were similar symptom in the past. He was just at [facility] today. He said they didn't do anything for him. This admitted check blood and EKG. Patient denies any fever chills but no nausea no vomiting. Pain is 10 out of 10. Similar symptom in the past. He was admitted here in May for alcoholic gastritis and abuse. No radiation. No diaphoresis. No exertional component. Allergies: Coded Allergies: No Known Allergies (Unverified , 04/01/18) Patient History Past Medical History: see triage record, old chart reviewed Past Surgical History: none Pertinent Family History: none Social History: Reports: alcohol use, drug use Immunizations: other Reviewed Nursing Documentation: PMH: Agreed; PSxH: Agreed Nursing Documentation-PMH Past Medical History: No Stated History Hx Cardiac Problems: No Hx Gastrointestinal Problems: No Hx Neurological Problems: No Hx Cerebrovascular Accident: No Review of Systems Eye: Denies: eye pain, blurred vision ENT: Denies: ear pain, nose congestion, throat swelling Respiratory: Denies: cough, shortness of breath Cardiovascular: Reports: chest pain; Denies: palpitations Gastrointestinal: Denies: abdominal pain, diarrhea, nausea, vomiting Musculoskeletal: Denies: back pain, joint pain Skin: Denies: rash Neurological: Denies: headache, numbness Endocrine: Denies: increased thirst, increased urine Hematologic/Lymphatic: Denies: easy bruising All Other Systems: negative except mentioned in HPI Physical Exam Vital Signs Date Time Temp Pulse Resp B/P (MAP) Pulse Ox O2 Delivery O2 Flow Rate FiO2 09/20/18 20:54 97.9 91 16 153/96 96 Room Air vitals with high blood pressure Sp02 EP Interpretation: reviewed, normal General Appearance: well appearing, no apparent distress, alert Head: normocephalic, atraumatic Eyes: bilateral eye PERRL, bilateral eye EOMI ENT: hearing grossly normal, normal pharynx Neck: full range of motion, supple, no meningismus Respiratory: lungs clear, normal breath sounds, other - Reproducible chest pain to right upper chest Cardiovascular #1: regular rate, rhythm, no murmur Gastrointestinal: normal bowel sounds, non tender, no mass, no organomegaly, no bruit, non-distended Musculoskeletal: back normal, gait/station normal, normal range of motion Psychiatric: mood/affect normal Skin: warm/dry Medical Decision Making Diagnostic Impression: Primary Impression: Chest pain Qualified Codes: R07.9 - Chest pain, unspecified Additional Impression: Alcohol intoxication Qualified Codes: F10.920 - Alcohol use, unspecified with intoxication, uncomplicated ER Course Patient with atypical chest pain. Most likely alcoholic related. No evidence of ACS, PE, dissection. EKG is normal. Troponin is negative. We'll discharge home. EKG Diagnostic Results Rate: normal Rhythm: NSR ST Segments: no acute changes ASA given to the pt in ED: No - Noncardiac Rhythm Strip Diag. Results Rhythm Strip Time: 21:25 EP Interpretation: yes Rate: 72 Rhythm: NSR, no PVC's, no ectopy Last Vital Signs Date Time Temp Pulse Resp B/P (MAP) Pulse Ox O2 Delivery O2 Flow Rate FiO2 09/20/18 20:54 97.9 91 16 153/96 96 Room Air Status: improved Disposition: HOME, SELF-CARE Condition: Stable Scripts Omeprazole Magnesium (PRILOSEC OTC) 20 Mg Tablet. 20 MG ORAL DAILY, #30 TAB Prov: Kavin Harman MD 09/20/18 Additional Instructions: Stop drinking alcohol and using drugs. Follow-up with your doctor in 7 days. Return if worse. Kavin Harman MD Sep 20, 2018 21:06
[2018-09-20] MEDS ORDERED: Mylanta II UD 30ml ORAL ONE (21:15)
[2018-09-20] MEDS ORDERED: PRILOSEC OTC20 MG ORAL (21:25)
[2018-09-20 21:30] VITALS: BP 140/92
[2018-09-20 22:15] VITALS: BP 125/77
[2018-09-21] MEDS ORDERED: NKM (16:22)
== END 2018-09-20 22:15 | disposition home or self-care (01) ==
LOC: EMR 21:05
DX: R07.9 Chest pain, unspecified (principal); F10.920 Alcohol use, unspecified with intoxication, uncomplicated; F15.10 Other stimulant abuse, uncomplicated
CPT/HCPCS: 84484; 93005; 99283

== ENCOUNTER 2018-09-21 16:07 | Emergency (ER) | payer MEDICAID ==
[~2018-09-21] VITALS: Ht 162.6 cm; Wt 68.0 kg
[~2018-09-21 16:07] MED LIST changes: +PRILOSEC OTC20 MG ORAL
[2018-09-21 16:13] VITALS: BP 142/92
[2018-09-21] MEDS ORDERED: NKM (16:22)
[2018-09-21] MEDS ORDERED: Capsaicin 0.075% Cream TOPIC ONE (16:30)
[2018-09-21 16:44] LABS: BASOPHILS % (AUTO) 0.9 % (0.0-2.0); EOSINOPHILS % (AUTO) 0.5 % (0.0-3.0); HEMATOCRIT 44.8 % (42.0-52.0); HEMOGLOBIN 16.1 G/DL (14.2-18.0); MEAN CORPUSCULAR VOLUME 85 FL (80-99); MONOCYTES % (AUTO) 5.9 % (1.0-10.0); NEUTROPHILS % (AUTO) 70.8 % (45.0-75.0); PLATELET COUNT 271 K/UL (150-450); RED BLOOD COUNT 5.28 M/UL (4.70-6.10); RED CELL DISTRIBUTION WIDTH 9.6 % (11.6-14.8); WHITE BLOOD COUNT 9.5 K/UL (4.8-10.8)
[2018-09-21 17:02] LABS: ANION GAP 10 mmol/L (5-15); BLOOD UREA NITROGEN 10 mg/dL (7-18); CALCIUM 8.4 MG/DL (8.5-10.1); CARBON DIOXIDE 25 MMOL/L (21-32); CHLORIDE 102 MMOL/L (98-107); CREATININE 0.7 MG/DL (0.55-1.30); POTASSIUM 3.8 MMOL/L (3.5-5.1); SODIUM 137 MMOL/L (136-145)
[2018-09-21 17:12] LABS: ALANINE AMINOTRANSFERASE 60 U/L (12-78); ALBUMIN 3.9 G/DL (3.4-5.0); ALBUMIN/GLOBULIN RATIO 0.8 (1.0-2.7); ALKALINE PHOSPHATASE 85 U/L (46-116); ASPARTATE AMINO TRANSFERASE 49 U/L (15-37); BILIRUBIN,TOTAL 1.2 MG/DL (0.2-1.0)
[2018-09-21 17:14] LABS: BILIRUBIN,DIRECT 0.2 MG/DL (0.0-0.3)
[2018-09-21 17:16] LABS: APPEARANCE,URINE CLEAR; BILIRUBIN, URINE NEGATIVE (NEGATIVE); COLOR,URINE PALE YELLOW; GLUCOSE, URINE (UA) NEGATIVE (NEGATIVE); KETONES,URINE NEGATIVE (NEGATIVE); LEUKOCYTE ESTERASE ,URINE NEGATIVE (NEGATIVE); NITRITE,URINE NEGATIVE (NEGATIVE); PH,URINE 7 (4.5-8.0); PROTEIN,URINE NEGATIVE (NEGATIVE); UROBILINOGEN,URINE NORMAL MG/DL (0.0-1.0)
--- NOTE | 2018-09-21 17:26 | Emergency Room Report ---
History of Present Illness General Chief Complaint: Vomiting Source: Patient Present Illness HPI This patient is well-known to [facility]. As a history of alcohol abuse and intoxication. He was seen here yesterday for chest pain and negative workup. He returns today for nausea vomiting and diffuse abdominal pain. The patient also has a history of methamphetamine and marijuana abuse. He denies fever or chills. He denies dysuria or hematuria. He has no other complaints. Allergies: Coded Allergies: No Known Allergies (Unverified , 04/01/18) Patient History Past Medical History: none Social History: Reports: alcohol use, drug use; Denies: smoking Reviewed Nursing Documentation: PMH: Agreed; PSxH: Agreed Nursing Documentation-PMH Past Medical History: No History, Except For Hx Cardiac Problems: No Hx Gastrointestinal Problems: No Hx Neurological Problems: No Hx Cerebrovascular Accident: No Review of Systems All Other Systems: negative except mentioned in HPI Physical Exam Vital Signs Date Time Temp Pulse Resp B/P (MAP) Pulse Ox O2 Delivery O2 Flow Rate FiO2 09/21/18 16:13 74 18 Room Air 09/21/18 16:13 98.2 142/92 97 Sp02 EP Interpretation: reviewed, normal General Appearance: no apparent distress, alert, GCS 15, non-toxic Head: normocephalic, atraumatic Eyes: bilateral eye normal inspection, bilateral eye PERRL ENT: hearing grossly normal, normal pharynx, no angioedema, normal voice Neck: full range of motion, supple/symm/no masses Respiratory: chest non-tender, lungs clear, normal breath sounds, speaking full sentences Cardiovascular #1: regular rate, rhythm, no edema Gastrointestinal: normal bowel sounds, non tender, soft, non-distended, no guarding, no rebound Rectal: deferred Musculoskeletal: back normal, gait/station normal, normal range of motion, non- tender Neurologic: alert, oriented x3, responsive, motor strength/tone normal, sensory intact, speech normal Psychiatric: judgement/insight normal, memory normal, mood/affect normal, no suicidal/homicidal ideation Skin: normal color, no rash, warm/dry, well hydrated Medical Decision Making Diagnostic Impression: Primary Impression: Alcohol intoxication ER Course This patient has a known history of alcohol abuse and it appears has cyclic vomiting syndrome. Capsaicin cream was applied to this patient's abdomen and he had complete resolution of his symptoms. Although, the patient's urine drug screen was negative, I suspect this patient also uses marijuana and has cannabis hyperemesis syndrome given the dramatic response to the topical Capsaicin cream. Laboratory workup to include CBC, CMP for this patient's baseline. There is no evidence of trauma or injury on physical examination of this patient. The patient was allowed to sober up in the emergency department and was able to ambulate and articulate desire to go home. The patient was clinically sober at the time of discharge. No acute emergency medical condition is identified. The patient was educated on the dangers of alcohol intoxication and abuse. The patient was given a list of the local rehabilitation clinics. Please note that this Emergency Department Report was dictated using [employer]osiahel[employer]th[employer] technology software, occasionally this can lead to erroneous entry secondary to interpretation by the dictation equipment. Laboratory Tests Test 09/21/18 16:30 09/21/18 16:45 09/21/18 17:43 White Blood Count 9.5 K/UL (4.8-10.8) Red Blood Count 5.28 M/UL (4.70-6.10) Hemoglobin 16.1 G/DL (14.2-18.0) Hematocrit 44.8 % (42.0-52.0) Mean Corpuscular Volume 85 FL (80-99) Mean Corpuscular Hemoglobin 30.5 PG (27.0-31.0) Mean Corpuscular Hemoglobin Concent 35.9 G/DL (32.0-36.0) Red Cell Distribution Width 9.6 % (11.6-14.8) L Platelet Count 271 K/UL (150-450) Mean Platelet Volume 5.8 FL (6.5-10.1) L Neutrophils (%) (Auto) 70.8 % (45.0-75.0) Lymphocytes (%) (Auto) 22.0 % (20.0-45.0) Monocytes (%) (Auto) 5.9 % (1.0-10.0) Eosinophils (%) (Auto) 0.5 % (0.0-3.0) Basophils (%) (Auto) 0.9 % (0.0-2.0) Sodium Level 137 MMOL/L (136-145) Potassium Level 3.8 MMOL/L (3.5-5.1) Chloride Level 102 MMOL/L (98-107) Carbon Dioxide Level 25 MMOL/L (21-32) Anion Gap 10 mmol/L (5-15) Blood Urea Nitrogen 10 mg/dL (7-18) Creatinine 0.7 MG/DL (0.55-1.30) Estimate Glomerular Filtration Rate > 60 mL/min (>60) Glucose Level 126 MG/DL (74-106) H Calcium Level 8.4 MG/DL (8.5-10.1) L Total Bilirubin 1.2 MG/DL (0.2-1.0) H Direct Bilirubin 0.2 MG/DL (0.0-0.3) Aspartate Amino Transferase (AST) 49 U/L (15-37) H Alanine Aminotransferase (ALT) 60 U/L (12-78) Alkaline Phosphatase 85 U/L (46-116) Total Protein 8.6 G/DL (6.4-8.2) H Albumin 3.9 G/DL (3.4-5.0) Globulin 4.7 g/dL Albumin/Globulin Ratio 0.8 (1.0-2.7) L Lipase 96 U/L (73-393) Urine Color Pale yellow Urine Appearance Clear Urine pH 7 (4.5-8.0) Urine Specific [place] 1.010 (1.005-1.035) Urine Protein Negative (NEGATIVE) Urine Glucose (UA) Negative (NEGATIVE) Urine Ketones Negative (NEGATIVE) Urine Blood Negative (NEGATIVE) Urine Nitrite Negative (NEGATIVE) Urine Bilirubin Negative (NEGATIVE) Urine Urobilinogen Normal MG/DL (0.0-1.0) Urine Leukocyte Esterase Negative (NEGATIVE) Urine Opiates Screen Negative (NEGATIVE) Urine Barbiturates Screen Negative (NEGATIVE) Phencyclidine (PCP) Screen Negative (NEGATIVE) Urine Amphetamines Screen Negative (NEGATIVE) Urine Benzodiazepines Screen Negative (NEGATIVE) Urine Cocaine Screen Negative (NEGATIVE) Urine Marijuana (THC) Screen Negative (NEGATIVE) Serum Alcohol 157 mg/dL Laboratory Tests Test 09/21/18 16:30 09/21/18 16:45 White Blood Count 9.5 K/UL (4.8-10.8) Red Blood Count 5.28 M/UL (4.70-6.10) Hemoglobin 16.1 G/DL (14.2-18.0) Hematocrit 44.8 % (42.0-52.0) Mean Corpuscular Volume 85 FL (80-99) Mean Corpuscular Hemoglobin 30.5 PG (27.0-31.0) Mean Corpuscular Hemoglobin Concent 35.9 G/DL (32.0-36.0) Red Cell Distribution Width 9.6 % (11.6-14.8) L Platelet Count 271 K/UL (150-450) Mean Platelet Volume 5.8 FL (6.5-10.1) L Neutrophils (%) (Auto) 70.8 % (45.0-75.0) Lymphocytes (%) (Auto) 22.0 % (20.0-45.0) Monocytes (%) (Auto) 5.9 % (1.0-10.0) Eosinophils (%) (Auto) 0.5 % (0.0-3.0) Basophils (%) (Auto) 0.9 % (0.0-2.0) Sodium Level 137 MMOL/L (136-145) Potassium Level 3.8 MMOL/L (3.5-5.1) Chloride Level 102 MMOL/L (98-107) Carbon Dioxide Level 25 MMOL/L (21-32) Anion Gap 10 mmol/L (5-15) Blood Urea Nitrogen 10 mg/dL (7-18) Creatinine 0.7 MG/DL (0.55-1.30) Estimate Glomerular Filtration Rate > 60 mL/min (>60) Glucose Level 126 MG/DL (74-106) H Calcium Level 8.4 MG/DL (8.5-10.1) L Total Bilirubin 1.2 MG/DL (0.2-1.0) H Direct Bilirubin 0.2 MG/DL (0.0-0.3) Aspartate Amino Transferase (AST) 49 U/L (15-37) H Alanine Aminotransferase (ALT) 60 U/L (12-78) Alkaline Phosphatase 85 U/L (46-116) Total Protein 8.6 G/DL (6.4-8.2) H Albumin 3.9 G/DL (3.4-5.0) Globulin 4.7 g/dL Albumin/Globulin Ratio 0.8 (1.0-2.7) L Lipase 96 U/L (73-393) Urine Color Pale yellow Urine Appearance Clear Urine pH 7 (4.5-8.0) Urine Specific [place] 1.010 (1.005-1.035) Urine Protein Negative (NEGATIVE) Urine Glucose (UA) Negative (NEGATIVE) Urine Ketones Negative (NEGATIVE) Urine Blood Negative (NEGATIVE) Urine Nitrite Negative (NEGATIVE) Urine Bilirubin Negative (NEGATIVE) Urine Urobilinogen Normal MG/DL (0.0-1.0) Urine Leukocyte Esterase Negative (NEGATIVE) Urine Opiates Screen Negative (NEGATIVE) Urine Barbiturates Screen Negative (NEGATIVE) Phencyclidine (PCP) Screen Negative (NEGATIVE) Urine Amphetamines Screen Negative (NEGATIVE) Urine Benzodiazepines Screen Negative (NEGATIVE) Urine Cocaine Screen Negative (NEGATIVE) Urine Marijuana (THC) Screen Negative (NEGATIVE) Last Vital Signs Date Time Temp Pulse Resp B/P (MAP) Pulse Ox O2 Delivery O2 Flow Rate FiO2 09/21/18 16:13 98.2 74 18 142/92 97 Room Air Status: improved Disposition: HOME, SELF-CARE Condition: Improved Referrals: NOT CHOSEN IPA/,REFERRING (PCP) Patient Instructions: Nausea and Vomiting, Adult Yesenia Hernandez DO Sep 21, 2018 17:25
[2018-09-21 18:48] VITALS: BP 125/85
== END 2018-09-21 18:49 | disposition home or self-care (01) ==
LOC: EMR 16:32
DX: F10.129 Alcohol abuse with intoxication, unspecified (principal); R11.2 Nausea with vomiting, unspecified
CPT/HCPCS: 36415; 80053; 80307; 80329; 81003; 82248; 83690; 85025; 96360; 99284

== ENCOUNTER 2018-10-15 06:50 | Emergency (ER) | payer MEDICAID ==
[~2018-10-15] VITALS: Ht 157.5 cm; Wt 72.6 kg
[~2018-10-15 06:50] MED LIST changes: +NKM
--- NOTE | 2018-10-15 07:20 | Emergency Room Report ---
History of Present Illness General Chief Complaint: Abdominal Pain Source: Patient Present Illness HPI Patient presents with complaints of epigastric abdominal discomfort Also reports some diarrhea He reports that he was at a friend's house last night and did drink alcohol Wasn't sure if there was anything bad in the food Denies any fevers or chills Denies any chest pain or shortness of breath The pain is a burning pain in the epigastric area and cramping diffusely Denies any blood in stool Allergies: Coded Allergies: No Known Allergies (Unverified , 04/01/18) Patient History Past Medical History: see triage record Pertinent Family History: none Reviewed Nursing Documentation: PMH: Agreed; PSxH: Agreed Nursing Documentation-PMH Past Medical History: No Stated History Hx Cardiac Problems: No Hx Gastrointestinal Problems: No Hx Neurological Problems: No Hx Cerebrovascular Accident: No Review of Systems All Other Systems: negative except mentioned in HPI Physical Exam Vital Signs Date Time Temp Pulse Resp B/P (MAP) Pulse Ox O2 Delivery O2 Flow Rate FiO2 10/15/18 06:55 98.1 88 14 150/101 97 Sp02 EP Interpretation: reviewed, normal General Appearance: well appearing, no apparent distress Head: normocephalic, atraumatic Eyes: bilateral eye PERRL, bilateral eye EOMI ENT: hearing grossly normal, normal pharynx, TMs + canals normal, uvula midline Neck: full range of motion, supple, no meningismus, no bony tend Respiratory: lungs clear, normal breath sounds, no rhonchi, no respiratory distress, no retraction, no accessory muscle use Cardiovascular #1: normal peripheral pulses, regular rate, rhythm, no edema, no gallop, no JVD, no murmur Gastrointestinal: normal bowel sounds, non tender - On palpation however subjectively points to the epigastric area, soft, no mass, no organomegaly, non- distended, no guarding, no hernia, no pulsatile mass, no rebound Musculoskeletal: normal inspection Neurologic: oriented x3, responsive, wet cleaner machine III-XII nml as tested, motor strength/ tone normal, sensory intact Psychiatric: mood/affect normal Skin: normal color, no rash, warm/dry, palpation normal Lymphatic: normal inspection, no adenopathy Medical Decision Making Diagnostic Impression: Primary Impression: Abdominal pain ER Course With the history exam and presentation, multiple differentials considered, including but not limited to appendicitis, gastritis, cholecystitis, diverticulitis Patient has a fairly benign abdominal evaluation Soft with appropriate bowel sounds On review of records patient does have multiple blood work on file also has recent blood test from this month Given the evaluation today in the recent emergency room examinations did not feel repeat imaging or blood work was required Patient is encouraged to get set up with appropriate outpatient clinic And will return with any changes Last Vital Signs Date Time Temp Pulse Resp B/P (MAP) Pulse Ox O2 Delivery O2 Flow Rate FiO2 10/15/18 07:10 85 16 10/15/18 06:55 98.1 150/101 97 Status: improved Disposition: HOME, SELF-CARE Condition: Improved Scripts Mag Hydrox/Al Hydrox/Simeth (Maalox Advanced Suspension) 355 Ml Oral.susp 10 ML PO BID for 5 Days, ML Prov: Jennifer Jack DO 10/15/18 Ondansetron* (ZOFRAN*) 4 Mg Tablet 4 MG ORAL Q6H PRN for Nausea & Vomiting, #10 TAB Prov: Jennifer Jack DO 10/15/18 Additional Instructions: Patient is provided with the discharge instructions notified to follow up with primary doctor in the next 2-3 days otherwise return to the er with any worsening symptoms. Please note that this report is being documented using [employer] technology. This can lead to erroneous entry secondary to incorrect interpretation by the dictating instrument. Jennifer Jack DO Oct 15, 2018 07:20
[2018-10-15 08:09] VITALS: BP 145/89
[2018-10-15] MEDS ORDERED: MAALOX ADVANCE770 ML PO (08:12)
[2018-10-15] MEDS ORDERED: ZOFRAN4 M3 ORAL (08:12)
[2018-10-15 08:16] VITALS: BP 145/89
== END 2018-10-15 08:19 | disposition home or self-care (01) ==
LOC: EMR 07:27
DX: R10.13 Epigastric pain (principal); R19.7 Diarrhea, unspecified
CPT/HCPCS: 99283

== ENCOUNTER 2019-01-17 15:55 | Emergency (ER) | payer MEDICAID ==
[~2019-01-17] VITALS: Ht 172.7 cm; Wt 74.8 kg
[~2019-01-17 15:55] MED LIST changes: +MAALOX ADVANCE770 ML PO; +ZOFRAN4 M3 ORAL
[2019-01-17] MEDS ORDERED: DiphenhydrAMINE 50mg/ml Inj IVP ONE (16:00)
[2019-01-17] MEDS ORDERED: Metoclopramide 10mg/2ml Inj IVP ONE (16:00)
--- NOTE | 2019-01-17 16:03 | Emergency Room Report ---
History of Present Illness General Chief Complaint: Alcohol Intoxication Source: Patient, EMS Present Illness HPI The patient presents with abdominal pain and vomiting after drinking heavily for the last 2 days. He thinks he might of vomited blood. He states he has not had black or tarry bowel movements. He feels weak at this time and has epigastric pain. The upper gastric pain is 8/10, burning not radiating and constant. Patient denies any fevers or chills. He denies seizures. Patient denies suicidal ideation. The patient is been seen here multiple times for alcohol abuse and epigastric pain. The patient was admitted May 2018. Discharge diagnoses: Alcohol intoxication Alcohol withdrawal Gastritis Abdominal pain with nausea and vomiting, likely due to alcoholic gastritis and alcohol intoxication Gastritis Hypoxia-resolved Mild anemia of chronic disease Thrombocytopenia History amphetamine abuse Allergies: Coded Allergies: No Known Allergies (Unverified , 04/01/18) Patient History Past Medical History: see triage record Social History: Reports: alcohol use, drug use Social History Narrative Stays with his cousin, but having problems with his Reviewed Nursing Documentation: PMH: Agreed; PSxH: Agreed Nursing Documentation-PMH Hx Cardiac Problems: No Hx Gastrointestinal Problems: No Hx Neurological Problems: No Hx Cerebrovascular Accident: No Review of Systems All Other Systems: negative except mentioned in HPI Physical Exam Vital Signs Date Time Temp Pulse Resp B/P (MAP) Pulse Ox O2 Delivery O2 Flow Rate FiO2 01/17/19 15:45 97.9 98 18 140/87 97 Room Air Sp02 EP Interpretation: reviewed, normal General Appearance: well appearing, no apparent distress, GCS 15 Head: normocephalic Eyes: bilateral eye PERRL, bilateral eye abnormal EOM - Nystagmus, bilateral eye Scleral Injection ENT: moist mucus membranes Neck: supple Respiratory: lungs clear, normal breath sounds Cardiovascular #1: regular rate, rhythm Cardiovascular #2: 2+ radial (R) Gastrointestinal: no guarding, no rebound, tenderness - Epigastric Musculoskeletal: back normal, normal range of motion Neurologic: alert, oriented x3, other - Ataxia and nystagmus Psychiatric: depressed affect, other - Intoxicated Skin: normal inspection, warm/dry Medical Decision Making Diagnostic Impression: Primary Impression: Alcohol intoxication Qualified Codes: F10.929 - Alcohol use, unspecified with intoxication, unspecified Additional Impressions: Epigastric pain Methamphetamine abuse ER Course Patient presents with epigastric pain and vomiting with history of alcohol use. I differential includes pancreatitis, gastritis, acute myocardial infarction, upper GI bleed amongst others. Patient will be evaluated with EKG, chest x-ray abdominal x-rays and labs. The patient will be treated with IV hydration, Reglan and Benadryl and Pepcid. EKG without injury - sinus tachycardia. Chest x-ray no infiltrate. Labs with positive alcohol and amphetamines Improved and sleeping. Complaining of pain. Mylanta and lido given. Sleeping. Tylenol given. Mylanta repeat. Patient states 1 week of intense drinking. No SI. Ambulatory and pain is controlled. Patient stable for outpatient observation and treatment. Advised to seek help and attend Alcoholics Anonymous meeting. Laboratory Tests Test 01/17/19 16:20 01/17/19 16:30 White Blood Count 8.4 K/UL (4.8-10.8) Red Blood Count 5.26 M/UL (4.70-6.10) Hemoglobin 16.3 G/DL (14.2-18.0) Hematocrit 46.0 % (42.0-52.0) Mean Corpuscular Volume 87 FL (80-99) Mean Corpuscular Hemoglobin 30.9 PG (27.0-31.0) Mean Corpuscular Hemoglobin Concent 35.4 G/DL (32.0-36.0) Red Cell Distribution Width 10.1 % (11.6-14.8) L Platelet Count 257 K/UL (150-450) Mean Platelet Volume 5.4 FL (6.5-10.1) L Neutrophils (%) (Auto) 67.4 % (45.0-75.0) Lymphocytes (%) (Auto) 24.6 % (20.0-45.0) Monocytes (%) (Auto) 6.6 % (1.0-10.0) Eosinophils (%) (Auto) 0.1 % (0.0-3.0) Basophils (%) (Auto) 1.3 % (0.0-2.0) Prothrombin Time 12.0 SEC (9.30-11.50) H Prothrombin Time INR 1.1 (0.9-1.1) PTT 29 SEC (23-33) Sodium Level 138 MMOL/L (136-145) Potassium Level 3.3 MMOL/L (3.5-5.1) L Chloride Level 98 MMOL/L (98-107) Carbon Dioxide Level 27 MMOL/L (21-32) Anion Gap 13 mmol/L (5-15) Blood Urea Nitrogen 6 mg/dL (7-18) L Creatinine 0.8 MG/DL (0.55-1.30) Estimate Glomerular Filtration Rate > 60 mL/min (>60) Glucose Level 139 MG/DL (74-106) H Calcium Level 8.3 MG/DL (8.5-10.1) L Total Bilirubin 0.9 MG/DL (0.2-1.0) Aspartate Amino Transferase (AST) 91 U/L (15-37) H Alanine Aminotransferase (ALT) 93 U/L (12-78) H Alkaline Phosphatase 76 U/L (46-116) Total Creatine Kinase 164 U/L (26-308) Troponin I 0.000 ng/mL (0.000-0.056) Total Protein 7.9 G/DL (6.4-8.2) Albumin 4.0 G/DL (3.4-5.0) Globulin 3.9 g/dL Albumin/Globulin Ratio 1.0 (1.0-2.7) Lipase 159 U/L (73-393) Urine Color Pale yellow Urine Appearance Clear Urine pH 7 (4.5-8.0) Urine Specific [place] 1.010 (1.005-1.035) Urine Protein Negative (NEGATIVE) Urine Glucose (UA) Negative (NEGATIVE) Urine Ketones Negative (NEGATIVE) Urine Blood Negative (NEGATIVE) Urine Nitrite Negative (NEGATIVE) Urine Bilirubin Negative (NEGATIVE) Urine Urobilinogen Normal MG/DL (0.0-1.0) Urine Leukocyte Esterase Negative (NEGATIVE) Urine Opiates Screen Negative (NEGATIVE) Urine Barbiturates Screen Negative (NEGATIVE) Phencyclidine (PCP) Screen Negative (NEGATIVE) Urine Amphetamines Screen Positive (NEGATIVE) H Urine Benzodiazepines Screen Negative (NEGATIVE) Urine Cocaine Screen Negative (NEGATIVE) Urine Marijuana (THC) Screen Negative (NEGATIVE) Serum Alcohol 333 mg/dL EKG Diagnostic Results Rate: tachycardiac Rhythm: NSR ST Segments: no acute changes Rhythm Strip Diag. Results EP Interpretation: yes Rhythm: no PVC's, no ectopy, other - Sinus tachycardia Chest X-Ray Diagnostic Results Chest X-Ray Diagnostic Results : Chest X-Ray Ordered: Yes Indication: Other EP Interpretation: Yes Interpretation: no consolidation, no effusion, no pneumothorax Impression: No acute disease Electronically Signed by: Electronically signed by Constantine Jones MD Other X-Ray Diagnostic Results Other X-Ray Diagnostic Results : X-Ray ordered: abd # of Views/Limited Vs Complete: 1 View Indication: Pain Interpretation: nonspecific bowel gas, no sbo, other - No masses Impression: Other Electronically Signed by: Electronically signed by Constantine Jones MD Last Vital Signs Date Time Temp Pulse Resp B/P (MAP) Pulse Ox O2 Delivery O2 Flow Rate FiO2 01/17/19 23:08 98.7 102 18 151/90 95 Room Air Status: improved Disposition: HOME, SELF-CARE Condition: Improved Scripts Acetaminophen (Tylenol) 325 Mg Tablet 650 MG ORAL Q6H PRN for Prn Pain/Headache/Temp > 101, #20 TAB 0 Refills Prov: Constantine Jones MD 01/17/19 Mag Hydrox/Al Hydrox/Simeth (MAALOX MAXIMUM STRENGTH SUSP) 355 Ml Oral.susp 30 ML PO Q6HR, #240 ML Prov: Constantine Jones MD 01/17/19 Ondansetron Odt* (ZOFRAN ODT*) 4 Mg Tab.rapdis 4 MG BC EVERY 8 HOURS for nausea vomiting, #10 TAB 0 Refills Prov: Constantine Jones MD 01/17/19 Constantine Jones MD Jan 17, 2019 16:03
--- NOTE | 2019-01-17 16:18 | NUR ---
ED Nurse Note:blood sent to labs and IV meds with fluids given, pt. had 1 episode of vomiting
[2019-01-17 16:26] VITALS: BP 140/87
[2019-01-17 16:48] LABS: BASOPHILS % (AUTO) 1.3 % (0.0-2.0); EOSINOPHILS % (AUTO) 0.1 % (0.0-3.0); HEMOGLOBIN 16.3 G/DL (14.2-18.0); LYMPHOCYTES % (AUTO) 24.6 % (20.0-45.0); MEAN CORPUSCULAR VOLUME 87 FL (80-99); MONOCYTES % (AUTO) 6.6 % (1.0-10.0); NEUTROPHILS % (AUTO) 67.4 % (45.0-75.0); PLATELET COUNT 257 K/UL (150-450); RED BLOOD COUNT 5.26 M/UL (4.70-6.10); RED CELL DISTRIBUTION WIDTH 10.1 % (11.6-14.8); WHITE BLOOD COUNT 8.4 K/UL (4.8-10.8)
[2019-01-17 16:55] LABS: INR 1.1 (0.9-1.1)
[2019-01-17] MEDS ORDERED: Mylanta II UD 30ml ORAL ONE ×3 (17:15→22:45)
[2019-01-17] MEDS ORDERED: Lidocaine 2% Visc 15ml soln ORAL ONE ×2 (17:15→22:45)
[2019-01-17 17:31] LABS: ANION GAP 13 mmol/L (5-15); BLOOD UREA NITROGEN 6 mg/dL (7-18); CALCIUM 8.3 MG/DL (8.5-10.1); CARBON DIOXIDE 27 MMOL/L (21-32); CHLORIDE 98 MMOL/L (98-107); CREATININE 0.8 MG/DL (0.55-1.30); POTASSIUM 3.3 MMOL/L (3.5-5.1); SODIUM 138 MMOL/L (136-145)
[2019-01-17 17:35] LABS: ALANINE AMINOTRANSFERASE 93 U/L (12-78); ALKALINE PHOSPHATASE 76 U/L (46-116); ASPARTATE AMINO TRANSFERASE 91 U/L (15-37); BILIRUBIN,TOTAL 0.9 MG/DL (0.2-1.0); CREATINE KINASE 164 U/L (26-308)
--- NOTE | 2019-01-17 17:56 | NUR ---
ED Nurse Note:pt. was given more pain meds for abd pain
[2019-01-17 17:57] LABS: APPEARANCE,URINE CLEAR; BILIRUBIN, URINE NEGATIVE (NEGATIVE); COLOR,URINE PALE YELLOW; GLUCOSE, URINE (UA) NEGATIVE (NEGATIVE); KETONES,URINE NEGATIVE (NEGATIVE); LEUKOCYTE ESTERASE ,URINE NEGATIVE (NEGATIVE); NITRITE,URINE NEGATIVE (NEGATIVE); PH,URINE 7 (4.5-8.0); PROTEIN,URINE NEGATIVE (NEGATIVE); UROBILINOGEN,URINE NORMAL MG/DL (0.0-1.0)
--- NOTE | 2019-01-17 22:00 | NUR ---
Awake, alert, wants to go home. notified.
[2019-01-17] MEDS ORDERED: MAALOX MAXIMUM355 M1 PO (22:35)
[2019-01-17] MEDS ORDERED: ONDANSETRON ODT4 MG BC (22:35)
[2019-01-17] MEDS ORDERED: TYLENOL325 MG ORAL (22:35)
--- NOTE | 2019-01-17 22:50 | NUR ---
Medicated as ordered, tolerted well.
--- NOTE | 2019-01-17 23:07 | NUR ---
IV line removed, patient discharged home with all his belongings, ACI with RX given. Ambulated with steady gait.
[2019-01-17 23:08] VITALS: BP 151/90
--- NOTE | 2019-01-18 11:18 | Diagnostic Imaging Report ---
Indication: Chest pain Technique: One view of the chest Comparison: 06/04/2018 Findings: Lungs and pleural spaces are clear. Heart size is normal. No significant interim change Impression: No acute process
--- NOTE | 2019-01-18 11:19 | Diagnostic Imaging Report ---
Indication: Abdominal pain Technique: Supine view of the abdomen Comparison: 06/04/2018 Findings: Unremarkable bowel gas pattern. No masses or unusual calcifications. No significant interim change Impression: No acute process
--- NOTE | 2019-01-19 21:30 | Cardiology Report ---
APPROVED REPORT EKG Measurement Heart [id number] MA [id number] [id number] Sinus tachycardia Otherwise normal ECG
== END 2019-01-17 23:08 | disposition home or self-care (01) ==
LOC: EDBD 15:55 → EMR 16:15
DX: F10.129 Alcohol abuse with intoxication, unspecified (principal); R10.9 Unspecified abdominal pain; R00.0 Tachycardia, unspecified
CPT/HCPCS: 36415; 71045; 74018; 80053; 80307; 80329; 81003; 82550; 83690; 84484; 85025; 85610; 85730; 93005; 96361; 96374; 96375; 99284; J1200; J2765; S0028

== ENCOUNTER 2020-02-15 19:54 | Emergency (ER) | payer MEDICAID ==
[~2020-02-15] VITALS: Ht 160 cm; Wt 74.8 kg
[~2020-02-15 19:54] MED LIST changes: +ONDANSETRON ODT4 MG BC; +TYLENOL325 MG ORAL
[2020-02-15 20:15] VITALS: BP 142/75
[2020-02-15] MEDS ORDERED: Metoclopramide 10mg/2ml Inj IVP ONE (20:30)
[2020-02-15] MEDS ORDERED: Morphine Sulfate 2mg/ml Inj(IV/IM USE ONLY) IVP ONE (20:30)
[2020-02-15 20:43] LABS: APPEARANCE,URINE CLEAR; BILIRUBIN, URINE NEGATIVE (NEGATIVE); COLOR,URINE PALE YELLOW; GLUCOSE, URINE (UA) NEGATIVE (NEGATIVE); KETONES,URINE NEGATIVE (NEGATIVE); LEUKOCYTE ESTERASE ,URINE 1+ (NEGATIVE); NITRITE,URINE NEGATIVE (NEGATIVE); PH,URINE 6 (4.5-8.0); PROTEIN,URINE NEGATIVE (NEGATIVE); UROBILINOGEN,URINE NORMAL MG/DL (0.0-1.0)
[2020-02-15 20:45] LABS: BASOPHILS % (AUTO) 1.7 % (0.0-2.0); EOSINOPHILS % (AUTO) 1.9 % (0.0-3.0); HEMATOCRIT 40.3 % (42.0-52.0); HEMOGLOBIN 13.6 G/DL (14.2-18.0); MEAN CORPUSCULAR VOLUME 93 FL (80-99); MONOCYTES % (AUTO) 8.8 % (1.0-10.0); NEUTROPHILS % (AUTO) 57.6 % (45.0-75.0); PLATELET COUNT 256 K/UL (150-450); RED BLOOD COUNT 4.32 M/UL (4.70-6.10); RED CELL DISTRIBUTION WIDTH 13.4 % (11.6-14.8)
[2020-02-15 20:53] LABS: ANION GAP 13 mmol/L (5-15); BLOOD UREA NITROGEN 8 mg/dL (7-18); CALCIUM 8.1 MG/DL (8.5-10.1); CARBON DIOXIDE 23 MMOL/L (21-32); CHLORIDE 105 MMOL/L (98-107); POTASSIUM 3.2 MMOL/L (3.5-5.1); SODIUM 141 MMOL/L (136-145)
--- NOTE | 2020-02-15 20:55 | Diagnostic Imaging Report ---
EXAM: CT Abdomen and Pelvis Without Intravenous Contrast CLINICAL HISTORY: PAIN TECHNIQUE: Axial computed tomography images of the abdomen and pelvis without intravenous contrast. CTDI is 7.5 mGy and DLP is 401 mGy-cm. One or more of the following dose reduction techniques were used: automated exposure control, adjustment of the mA and/or kV according to patient size, use of iterative reconstruction technique. Coronal and sagittal reformatted images were created and reviewed. COMPARISON: 05/23/18 FINDINGS: Lung bases: Unremarkable. No mass. No consolidation. ABDOMEN: Liver: Hepatic steatosis, correlate to exclude steatohepatitis. Gallbladder and bile ducts: Gallbladder sludge without findings to suggest acute cholecystitis. No ductal dilation. Pancreas: Unremarkable. No ductal dilation. Spleen: Unremarkable. No splenomegaly. Adrenals: Unremarkable. No mass. Kidneys and ureters: Unremarkable. No obstructing stones. No hydronephrosis. Stomach and bowel: Liquid small and large bowel contents could be incidental or could represent an infectious or inflammatory enteritis or enterocolitis in the proper context. Scattered calcified small bowel mesenteric findings could represent old granulomatous disease. PELVIS: Appendix: No findings to suggest acute appendicitis. Bladder: Urinary bladder wall thickening. This could be incidental, correlate clinically to exclude infectious or inflammatory cystitis. No stones. Reproductive: Unremarkable as visualized. ABDOMEN and PELVIS: Intraperitoneal space: Unremarkable. No free air. No significant fluid collection. Bones/joints: No acute fracture. No dislocation. Soft tissues: Unremarkable. Vasculature: Unremarkable. No abdominal aortic aneurysm. Lymph nodes: Unremarkable. No enlarged lymph nodes. IMPRESSION: 1. Liquid small and large bowel contents could be incidental or could represent an infectious or inflammatory enteritis or enterocolitis in the proper context. 2. Urinary bladder wall thickening. This could be incidental, correlate clinically to exclude infectious or inflammatory cystitis. 3. Gallbladder sludge without findings to suggest acute cholecystitis. 4. Hepatic steatosis, correlate to exclude steatohepatitis. 5. Otherwise no acute abnormality definitively identified to account for patient presentation.
[2020-02-15 21:00] LABS: ALANINE AMINOTRANSFERASE 77 U/L (12-78); ALBUMIN 3.5 G/DL (3.4-5.0); ALBUMIN/GLOBULIN RATIO 0.9 (1.0-2.7); ALKALINE PHOSPHATASE 103 U/L (46-116); ASPARTATE AMINO TRANSFERASE 77 U/L (15-37); BILIRUBIN,TOTAL 0.5 MG/DL (0.2-1.0)
--- NOTE | 2020-02-15 21:03 | Emergency Room Report ---
History of Present Illness General Chief Complaint: Abdominal Pain Source: Patient Present Illness HPI Patient presents with complaints of epigastric abdominal pain reports that he is been drinking alcohol more than usual over the past week Now he was having increased nausea vomiting patient reports that his father in [place] And that is what led to the increased drinking Denies any homicidal or suicidal thoughts denies any chest pain denies any Lower abdominal pain denies any diarrhea Allergies: Coded Allergies: No Known Allergies (Unverified , 04/01/18) COVID-19 Screening Contact w/high risk pt: No Recent Travel to affected area: No Experienced COVID-19 symptoms?: No Patient History Past Medical History: see triage record Reviewed Nursing Documentation: PMH: Agreed; PSxH: Agreed Nursing Documentation-PMH Past Medical History: No Stated History Hx Cardiac Problems: No Hx Gastrointestinal Problems: No Hx Neurological Problems: No Hx Cerebrovascular Accident: No Review of Systems All Other Systems: negative except mentioned in HPI Physical Exam Vital Signs Date Time Temp Pulse Resp B/P (MAP) Pulse Ox O2 Delivery O2 Flow Rate FiO2 02/15/20 20:00 97.9 83 16 133/83 (100) 92 Room Air Sp02 EP Interpretation: reviewed, normal General Appearance: well appearing, no apparent distress Head: normocephalic, atraumatic Eyes: bilateral eye PERRL, bilateral eye EOMI ENT: hearing grossly normal, normal pharynx, TMs + canals normal, uvula midline Neck: full range of motion, supple, no meningismus, no bony tend Respiratory: lungs clear, normal breath sounds, no rhonchi, no respiratory distress, no retraction, no accessory muscle use Cardiovascular #1: normal peripheral pulses, regular rate, rhythm, no edema, no gallop, no JVD, no murmur Gastrointestinal: normal bowel sounds, non tender - On palpation however subjectively points to epigastric region, soft, no mass, no organomegaly, non- distended, no guarding, no hernia, no pulsatile mass, no rebound Genitourinary: no CVA tenderness Musculoskeletal: normal inspection Neurologic: motor strength/tone normal, regional construction manager III-XII nml as tested, oriented x3 , sensory intact, responsive Psychiatric: mood/affect normal Skin: no rash Lymphatic: normal inspection, no adenopathy Medical Decision Making Diagnostic Impression: Primary Impression: Abdominal pain Additional Impressions: Alcohol intoxication Vomiting ER Course With the history exam and presentation, multiple differentials considered, including but not limited to appendicitis, gastritis, cholecystitis, diverticulitis Patient had extensive blood work and imaging obtained Imaging shows some consistent findings with enteritis Also chronic liver disease Patient's blood work reveals a normal liver function test Also CBC is baseline levels Patient has done significantly better after further discussion also reports that he has been having diarrhea as well and with recent travel raising the likelihood of enteritis patient will have initial conservative outpatient trial and return with any changes Labs Test 02/15/20 20:28 02/15/20 20:30 White Blood Count 7.0 K/UL (4.8-10.8) Red Blood Count 4.32 M/UL (4.70-6.10) Hemoglobin 13.6 G/DL (14.2-18.0) Hematocrit 40.3 % (42.0-52.0) Mean Corpuscular Volume 93 FL (80-99) Mean Corpuscular Hemoglobin 31.6 PG (27.0-31.0) Mean Corpuscular Hemoglobin Concent 33.9 G/DL (32.0-36.0) Red Cell Distribution Width 13.4 % (11.6-14.8) Platelet Count 256 K/UL (150-450) Mean Platelet Volume 6.4 FL (6.5-10.1) Neutrophils (%) (Auto) 57.6 % (45.0-75.0) Lymphocytes (%) (Auto) 30.0 % (20.0-45.0) Monocytes (%) (Auto) 8.8 % (1.0-10.0) Eosinophils (%) (Auto) 1.9 % (0.0-3.0) Basophils (%) (Auto) 1.7 % (0.0-2.0) Sodium Level 141 MMOL/L (136-145) Potassium Level 3.2 MMOL/L (3.5-5.1) Chloride Level 105 MMOL/L (98-107) Carbon Dioxide Level 23 MMOL/L (21-32) Anion Gap 13 mmol/L (5-15) Blood Urea Nitrogen 8 mg/dL (7-18) Creatinine 1.0 MG/DL (0.55-1.30) Estimat Glomerular Filtration Rate > 60 mL/min (>60) Glucose Level 126 MG/DL (74-106) Calcium Level 8.1 MG/DL (8.5-10.1) Total Bilirubin 0.5 MG/DL (0.2-1.0) Aspartate Amino Transf (AST/SGOT) 77 U/L (15-37) Alanine Aminotransferase (ALT/SGPT) 77 U/L (12-78) Alkaline Phosphatase 103 U/L (46-116) Total Protein 7.3 G/DL (6.4-8.2) Albumin 3.5 G/DL (3.4-5.0) Globulin 3.8 g/dL Albumin/Globulin Ratio 0.9 (1.0-2.7) Lipase 203 U/L (73-393) Serum Alcohol 122 mg/dL Urine Color Pale yellow Urine Appearance Clear Urine pH 6 (4.5-8.0) Urine Specific [place] 1.020 (1.005-1.035) Urine Protein Negative (NEGATIVE) Urine Glucose (UA) Negative (NEGATIVE) Urine Ketones Negative (NEGATIVE) Urine Blood Negative (NEGATIVE) Urine Nitrite Negative (NEGATIVE) Urine Bilirubin Negative (NEGATIVE) Urine Urobilinogen Normal MG/DL (0.0-1.0) Urine Leukocyte Esterase 1+ (NEGATIVE) Urine RBC 0-2 /HPF (0 - 0) Urine WBC 0-2 /HPF (0 - 0) Urine Squamous Epithelial Cells Few /LPF (NONE/OCC) Urine Bacteria Occasional /HPF (NONE) Urine Opiates Screen Negative (NEGATIVE) Urine Barbiturates Screen Negative (NEGATIVE) Phencyclidine (PCP) Screen Negative (NEGATIVE) Urine Amphetamines Screen Negative (NEGATIVE) Urine Benzodiazepines Screen Negative (NEGATIVE) Urine Cocaine Screen Negative (NEGATIVE) Urine Marijuana (THC) Screen Negative (NEGATIVE) CT/MRI/US Diagnostic Results CT/MRI/US Diagnostic Results : Impression CT abdomen pelvisIMPRESSION: 1. Liquid small and large bowel contents could be incidental or could represent an infectious or inflammatory enteritis or enterocolitis in the proper context. 2. Urinary bladder wall thickening. This could be incidental, correlate clinically to exclude infectious or inflammatory cystitis. 3. Gallbladder sludge without findings to suggest acute cholecystitis. 4. Hepatic steatosis, correlate to exclude steatohepatitis. 5. Otherwise no acute abnormality definitively identified to account for patient presentation. Last Vital Signs Date Time Temp Pulse Resp B/P (MAP) Pulse Ox O2 Delivery O2 Flow Rate FiO2 02/15/20 20:15 97.9 70 24 142/75 98 Room Air Status: improved Disposition: HOME, SELF-CARE Condition: Improved Referrals: NOT CHOSEN [facility]/MD,REFERRING (PCP) Additional Instructions: Patient is provided with the discharge instructions notified to follow up with primary doctor in the next 2-3 days otherwise return to the er with any worsening symptoms. Please note that this report is being documented using [employer] technology. This can lead to erroneous entry secondary to incorrect interpretation by the dictating instrument. Jennifer Jack DO Feb 15, 2020 21:03
[2020-02-15] MEDS ORDERED: FAMOTIDINE20 MG ORAL (21:24)
[2020-02-15] MEDS ORDERED: REGLAN10 MG ORAL (21:24)
[2020-02-15] MEDS ORDERED: MAALOX MAXIMUM355 M1 PO (21:24)
[2020-02-15 22:24] VITALS: BP 117/65
[2020-02-15 23:15] VITALS: BP 110/70
== END 2020-02-15 23:15 | disposition home or self-care (01) ==
LOC: EMR 20:45
DX: R10.13 Epigastric pain (principal); F10.129 Alcohol abuse with intoxication, unspecified; R11.10 Vomiting, unspecified; K76.0 Fatty (change of) liver, not elsewhere classified
CPT/HCPCS: 36415; 74176; 80053; 80307; 81003; 83690; 85025; 96361; 96374; 96375; G0480; J2270; J2405; J2765; J7030; Z7502; 99284

== ENCOUNTER 2020-06-06 04:30 | Emergency (ER) | payer MEDICAID ==
[~2020-06-06] VITALS: Ht 162.6 cm; Wt 72.6 kg
[~2020-06-06 04:30] MED LIST changes: +FAMOTIDINE20 MG ORAL; +REGLAN10 MG ORAL
--- NOTE | 2020-06-06 04:40 | NUR ---
ED Nurse Note: ambulated to ed c/o abdominal pain nausea vomitting and headache x3 days. 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 changed into gown; attached to monitor. ao4 nad vss. all safety measures met.
--- NOTE | 2020-06-06 04:50 | NUR ---
ED Nurse Note: IV access established. blood and urine collected; sent down to lab.
[2020-06-06] MEDS ORDERED: Mylanta II UD 30ml ORAL ONE (05:00)
[2020-06-06] MEDS ORDERED: Dicyclomine HCl 10mg/5ml oral soln ORAL ONE (05:00)
[2020-06-06] MEDS ORDERED: Ketorolac 30mg Inj IV ONE (05:00)
[2020-06-06] MEDS ORDERED: Lidocaine 2% Visc 15ml soln ORAL ONE (05:00)
[2020-06-06 05:12] VITALS: BP 133/88
--- NOTE | 2020-06-06 05:13 | Emergency Room Report ---
History of Present Illness General Chief Complaint: Abdominal Pain Source: Patient (Spencer Hathaway MD) Present Illness HPI 34-year-old male presents to ED for evaluation. Complaining of abdominal pain. Started 3 days ago. Pain is epigastric, burning, 7 out of 10, nonradiating. Denies chest pain or shortness of breath. Notes nausea, denies vomiting. States he has been drinking alcohol. No other aggravating relieving factors. 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 (Spencer Hathaway MD) Patient History Past Medical History: none Past Surgical History: none Pertinent Family History: none Social History: Reports: alcohol use; Denies: smoking, drug use Immunizations: UTD Reviewed Nursing Documentation: PMH: Agreed; PSxH: Agreed (Spencer Hathaway MD) Nursing Documentation-PMH Hx Cardiac Problems: No Hx Gastrointestinal Problems: No Hx Neurological Problems: No Hx Cerebrovascular Accident: No (Spencer Hathaway MD) Review of Systems All Other Systems: negative except mentioned in HPI (Spencer Hathaway MD) Physical Exam Vital Signs Date Time Temp Pulse Resp B/P (MAP) Pulse Ox O2 Delivery O2 Flow Rate FiO2 06/06/20 04:40 98.4 110 16 136/89 (105) 97 Room Air Sp02 EP Interpretation: reviewed, normal General Appearance: no apparent distress, alert, GCS 15, non-toxic Head: normocephalic, atraumatic Eyes: bilateral eye normal inspection, bilateral eye PERRL ENT: hearing grossly normal, normal pharynx, no angioedema, normal voice Neck: full range of motion, supple/symm/no masses Respiratory: chest non-tender, lungs clear, normal breath sounds, speaking full sentences Cardiovascular #1: regular rate, rhythm, no edema Cardiovascular #2: 2+ carotid (R), 2+ carotid (L), 2+ radial (R), 2+ radial (L) , 2+ dorsalis pedis (R), 2+ dorsalis pedis (L) Gastrointestinal: normal bowel sounds, soft, non-distended, no guarding, no rebound, tenderness Rectal: deferred Genitourinary: normal inspection, no CVA tenderness Musculoskeletal: back normal, normal range of motion, gait/station normal, non- tender Neurologic: alert, motor strength/tone normal, oriented x3, sensory intact, responsive, speech normal Psychiatric: judgement/insight normal, memory normal, mood/affect normal, no suicidal/homicidal ideation Reflexes: 3+ bicep (R), 3+ bicep (L), 3+ tricep (R), 3+ tricep (L), 3+ knee (R) , 3+ knee (L) Skin: no rash Lymphatic: no adenopathy (Spencer Hathaway MD) Medical Decision Making Diagnostic Impression: Primary Impression: Epigastric pain Additional Impressions: Hypokalemia Alcohol intoxication ER Course Patient signed out by pending labs and reevaluation. Patient presents with epigastric pain for the past few days. Patient is a chronic alcoholic. He denies any chest pain or shortness of breath. He denies any fever. Patient's labs demonstrate no elevated white blood cell count or shift. Patient has mild hypokalemia with potassium of 2.9. Magnesium level is not low. Patient given 40 mEq of oral potassium chloride. Patient given GI cocktail by prior attending. Patient reports improved pain but is still requesting a pain pill. I gave him 1 tablet of 5/325 [place]. Patient counseled on the dangers of excessive alcohol abuse. After discussing risks and benefits of further diagnostics, treatment plans, as well as indications for and risks of admission, the patient is agreeable to being discharged home. I have explained that their evaluation and treatment in the emergency department today is an important step towards them achieving better health but that their evaluation today is not intended to replace further evaluation and treatment by a physician in their local clinic. I have explained that while the current findings suggest no immediate life threatening emergency they will require further evaluation and treatment by a physician of their choice in their area. They understand that it will be necessary for them to review the final reports of their ED visit with their clinic physician. We have reviewed indications for return to the Emergency Department. I have explained that additional time may need to pass and/or additional testing as an outpatient may be necessary before a definitive diagnosis can be made. They tell me they are willing to follow up as instructed within the timeframe I recommend. They appear to understand what we discussed. Additionally they understand that if they are unable to be seen by an outpatient physician they are welcome, and in fact should, return to the Emergency Department for a repeat evaluation. The patient is stable at time of discharge. (Rosette Wall M.D.) Last Vital Signs Date Time Temp Pulse Resp B/P (MAP) Pulse Ox O2 Delivery O2 Flow Rate FiO2 06/06/20 04:40 98.4 110 16 136/89 (105) 97 Room Air (Spencer Hathaway MD) Disposition: HOME, SELF-CARE Condition: Stable Scripts Famotidine* (Pepcid 20mg tablet*) 20 Mg Tablet 20 MG ORAL TWICE A DAY, #60 TAB 0 Refills Prov: Rosette Wall M.D. 06/06/20 Referrals: NOT CHOSEN [facility]/,REFERRING (PCP) Additional Instructions: The patient was provided with discharge instructions, notified to follow-up with a primary care doctor and or specialist in the next 24-48 hours, and to return to the ED if they have worsening of their symptoms. Please note that this report is being documented using [employer] technology. This can lead to erroneous entry secondary to incorrect interpretation by the dictating instrument. Spencer Hathaway MD Jun 06, 2020 05:13 Rosette Wall M.D. Jun 06, 2020 06:42
[2020-06-06 05:48] LABS: BASOPHILS % (AUTO) 1.4 % (0.0-2.0); EOSINOPHILS % (AUTO) 0.5 % (0.0-3.0); HEMATOCRIT 45.9 % (42.0-52.0); HEMOGLOBIN 15.8 G/DL (14.2-18.0); MEAN CORPUSCULAR VOLUME 88 FL (80-99); MONOCYTES % (AUTO) 13.6 % (1.0-10.0); NEUTROPHILS % (AUTO) 56.5 % (45.0-75.0); PLATELET COUNT 232 K/UL (150-450); RED BLOOD COUNT 5.24 M/UL (4.70-6.10); RED CELL DISTRIBUTION WIDTH 10.5 % (11.6-14.8); WHITE BLOOD COUNT 6.6 K/UL (4.8-10.8)
[2020-06-06 05:59] LABS: ANION GAP 11 mmol/L (5-15); BLOOD UREA NITROGEN 8 mg/dL (7-18); CALCIUM 8.6 MG/DL (8.5-10.1); CARBON DIOXIDE 29 MMOL/L (21-32); CHLORIDE 99 MMOL/L (98-107); POTASSIUM 2.9 MMOL/L (3.5-5.1); SODIUM 139 MMOL/L (136-145)
[2020-06-06 06:03] LABS: ALANINE AMINOTRANSFERASE 87 U/L (12-78); ALBUMIN 4.3 G/DL (3.4-5.0); ALKALINE PHOSPHATASE 92 U/L (46-116); ASPARTATE AMINO TRANSFERASE 46 U/L (15-37); BILIRUBIN,TOTAL 0.8 MG/DL (0.2-1.0)
[2020-06-06 06:30] VITALS: BP 128/78
[2020-06-06] MEDS ORDERED: oxyCODONE HCL/Acetaminophen 5/325mg ORAL ONE (06:30)
[2020-06-06] MEDS ORDERED: FAMOTIDINE20 MG ORAL (06:38)
[2020-06-06 06:40] VITALS: BP 128/78
--- NOTE | 2020-06-06 06:40 | NUR ---
ER DISCHARGE NOTE: Patient is cleared to be discharged per ERMD, pt is aox4, on room air, with stable vital signs. pt was given dc and prescription instructions, pt was able to verbalize understanding, pt id band and iv site removed without complications. pt is able to ambulate with steady gait. pt took all belongings.
== END 2020-06-06 06:40 | disposition home or self-care (01) ==
LOC: EMR 04:58
DX: R10.13 Epigastric pain (principal); E87.6 Hypokalemia; F10.129 Alcohol abuse with intoxication, unspecified
CPT/HCPCS: 36415; 80053; 83690; 83735; 85025; 96361; 96374; 96375; G0480; J1885; J2405; J7030; S0028; Z7502; 99284; J8499

== ENCOUNTER 2020-07-08 13:02 | Emergency (ER) | payer MEDICAID ==
[~2020-07-08] VITALS: Ht 172.7 cm; Wt 76.2 kg
[2020-07-08 13:17] VITALS: BP 152/80
--- NOTE | 2020-07-08 13:47 | Emergency Room Report ---
History of Present Illness General Chief Complaint: Abdominal Pain Source: Patient (Emily Kirkland) Present Illness HPI 35-year-old male presents to the emergency department complaining of 6 out of 10 severity abdominal pain x3 days. Patient reports his pain is in the epigastric area. He reports he has had pain in this area in the past and is usually prescribed medication for gastritis. Patient explains that he has been out of his medication for over a week. Patient does report that alcohol intake usually exacerbates his symptoms and reports having been drinking alcohol 3 days ago just prior to onset of his symptoms. Patient also is reporting new onset low back pain bilaterally in the musculature. Patient denies midline back pain he denies neck pain. Patient denies trauma or fall. Patient reports he does not specifically recall lifting anything heavy or strenuous activity. HE reports pain with palpation or bending forward. Relief with laying flat. He denies radiation of his pain around toward his stomach or genital area. He denies dysuria, urinary frequency or hematuria. He denies recent spinal procedures. He denies paresthesias. He denies weakness in the lower extremities. He denies incontinence of bowel or bladder. e reports his bowel movements are normal. Patient denies fevers or chills. He is reporting some increase in fatigue x3 days as well. He denies being around anyone that has been experiencing similar symptoms or who has tested positive for COVID-19. He reports one episode of throwing up stomach acid this morning he reports there was not much production. He reports a mild nausea. He denies blood in the vomitus or stool. He denies black tarry stools. He denies changes in character to his abdominal pain from which he has experienced in the past. He denies cardiac hx. He denies CP, SOB, palpitations, acute tearing upper back pain, dizziness or sudden onset of AGUSTIN. 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 COVID-19 Screening: Negative COVID-19 COVID-19 Testing Source: nasal (Emily Kirkland) Patient History Past Medical History: see triage record Past Surgical History: none Pertinent Family History: none Reviewed Nursing Documentation: PMH: Agreed; PSxH: Agreed (Emily Kirkland) Nursing Documentation-PMH Hx Cardiac Problems: No Hx Gastrointestinal Problems: Yes - gastritis Hx Neurological Problems: No Hx Cerebrovascular Accident: No (Emily Kirkland) Review of Systems All Other Systems: negative except mentioned in HPI (Emily Kirkland) Physical Exam Vital Signs Date Time Temp Pulse Resp B/P (MAP) Pulse Ox O2 Delivery O2 Flow Rate FiO2 07/08/20 13:09 98.4 101 17 152/80 (104) 99 Room Air Sp02 EP Interpretation: reviewed, normal General Appearance: no apparent distress, alert, GCS 15, non-toxic Head: normocephalic, atraumatic Eyes: bilateral eye normal inspection, bilateral eye PERRL ENT: hearing grossly normal, normal voice Neck: full range of motion Respiratory: lungs clear, normal breath sounds, no respiratory distress, no accessory muscle use, no wheezing, speaking full sentences Cardiovascular #1: regular rate, rhythm, no edema Gastrointestinal: normal bowel sounds, non tender, soft, no peritonitis, non- distended, no guarding Genitourinary: normal inspection, no CVA tenderness Musculoskeletal: normal range of motion, gait/station normal, tender - TTp to the paraspinal musculature bilaterally in the lumbar area. No midline spinous process tenderness , no obvious deformity, no skin color changes. PT. with FROM. Neurologic: alert, motor strength/tone normal, oriented x3, sensory intact, responsive, speech normal, grossly normal Psychiatric: judgement/insight normal Skin: no rash, normal color (Emily Kirkland) Medical Decision Making PA Attestation Dr. Jones is my supervising Physician whom patient management has been discussed with. (Emily Kirkland) Diagnostic Impression: Primary Impression: Epigastric pain Additional Impressions: Gastritis Qualified Codes: K29.20 - Alcoholic gastritis without bleeding Alcohol abuse Elevated liver enzymes Low back pain Qualified Codes: M54.5 - Low back pain ER Course 35-year-old male presents to the emergency department complaining of 6 out of 10 severity abdominal pain x3 days. Patient reports his pain is in the epigastric area. He reports he has had pain in this area in the past and is usually prescribed medication for gastritis. Patient explains that he has been out of his medication for over a week. Patient does report that alcohol intake usually exacerbates his symptoms and reports having been drinking alcohol 3 days ago just prior to onset of his symptoms. Patient also is reporting new onset low back pain bilaterally in the musculature. Patient denies midline back pain he denies neck pain. Patient denies trauma or fall. Patient reports he does not specifically recall lifting anything heavy or strenuous activity. HE reports pain with palpation or bending forward. Relief with laying flat. He denies radiation of his pain around toward his stomach or genital area. He denies dysu ros, urinary frequency or hematuria. He denies recent spinal procedures. He denies paresthesias. He denies weakness in the lower extremities. He denies incontinence of bowel or bladder. e reports his bowel movements are normal. Patient denies fevers or chills. He is reporting some increase in fatigue x3 days as well. He denies being around anyone that has been experiencing similar symptoms or who has tested positive for COVID-19. He reports one episode of throwing up stomach acid this morning he reports there was not much production. He reports a mild nausea. He denies blood in the vomitus or stool. He denies black tarry stools. He denies changes in character to his abdominal pain from which he has experienced in the past. He denies cardiac hx. He denies CP, SOB, palpitations, acute tearing upper back pain, dizziness or sudden onset of AGUSTIN. Ddx considered but are not limited to GE, colitis, acute appendicitis, hepatitis, GI bleed, Dissection,, SBO, H.pylori, Gastritis, PNA, pericarditis just to name a few. Vital signs: pt. is afebrile H&PE are most consistent with Gastritis - No evidence to suggest acute abdomen on physical exam. Pt. is non-toxic in appearance. No cauda equina. ORDERS: -CBC: WNL -CMP: other than elevation in LFT's, unremarkable. -Lipase: WNL -Serum ETOH: WNL /0 ED INTERVENTIONS: - 1 Liter NS Bolus -Mylanta PO -Lidocaine PO -Pepcid PO -Lidoderm patch TP -Ativan 1 mg PO -I do not identify an emergent condition at this time. With current presentation, pt. is stable for close outpatient follow up and conservative treatment. D/w pt. to return promptly to ED with worsening or new symptoms.- P t. (and or responsible democrat) verbalizes' understanding and agreement with proposed treatment plan.proposed treatment plan. DISCHARGE: At this time pt. is stable for d/c to home. Will provide printed patient care instructions, and any necessary prescriptions. Care plan and follow up instructions have been discussed with the patient prior to discharge. Labs Test 07/08/20 13:40 White Blood Count 4.4 K/UL (4.8-10.8) Red Blood Count 5.00 M/UL (4.70-6.10) Hemoglobin 15.4 G/DL (14.2-18.0) Hematocrit 43.2 % (42.0-52.0) Mean Corpuscular Volume 86 FL (80-99) Mean Corpuscular Hemoglobin 30.9 PG (27.0-31.0) Mean Corpuscular Hemoglobin Concent 35.7 G/DL (32.0-36.0) Red Cell Distribution Width 11.3 % (11.6-14.8) Platelet Count 179 K/UL (150-450) Mean Platelet Volume 6.4 FL (6.5-10.1) Neutrophils (%) (Auto) 60.2 % (45.0-75.0) Lymphocytes (%) (Auto) 24.4 % (20.0-45.0) Monocytes (%) (Auto) 9.4 % (1.0-10.0) Eosinophils (%) (Auto) 4.4 % (0.0-3.0) Basophils (%) (Auto) 1.6 % (0.0-2.0) Sodium Level 135 MMOL/L (136-145) Potassium Level 3.9 MMOL/L (3.5-5.1) Chloride Level 100 MMOL/L (98-107) Carbon Dioxide Level 24 MMOL/L (21-32) Anion Gap 11 mmol/L (5-15) Blood Urea Nitrogen 16 mg/dL (7-18) Creatinine 0.9 MG/DL (0.55-1.30) Estimat Glomerular Filtration Rate > 60 mL/min (>60) Glucose Level 108 MG/DL (74-106) Calcium Level 8.9 MG/DL (8.5-10.1) Total Bilirubin 1.3 MG/DL (0.2-1.0) Direct Bilirubin 0.2 MG/DL (0.0-0.3) Aspartate Amino Transf (AST/SGOT) 145 U/L (15-37) Alanine Aminotransferase (ALT/SGPT) 122 U/L (12-78) Alkaline Phosphatase 133 U/L (46-116) Total Protein 8.2 G/DL (6.4-8.2) Albumin 4.0 G/DL (3.4-5.0) Globulin 4.2 g/dL Albumin/Globulin Ratio 1.0 (1.0-2.7) Lipase 243 U/L (73-393) Serum Alcohol < 3 mg/dL (Emily Kirkland) Last Vital Signs Date Time Temp Pulse Resp B/P (MAP) Pulse Ox O2 Delivery O2 Flow Rate FiO2 07/08/20 13:17 98.4 17 152/80 99 Room Air 07/08/20 13:17 101 (Emily Kirkland) Disposition: HOME, SELF-CARE Condition: Stable Scripts Famotidine* (Pepcid 20mg tablet*) 20 Mg Tablet 20 MG ORAL TWICE A DAY for 14 Days, #28 TAB 0 Refills Prov: Emily Kirkland 07/08/20 Methocarbamol* (ROBAXIN-500*) 500 Mg Tablet 500 MG ORAL TID for 3 Days, #9 TAB 0 Refills Prov: Emily Kirkland 07/08/20 Referrals: NOT CHOSEN [facility]/,REFERRING (PCP) Patient Instructions: Abdominal Pain, Adult Additional Instructions: Take medications as directed. Do not drink alcohol, drive, or operate heavy machinery while taking Robaxin as this may cause drowsiness. Follow up with a Primary Care Provider in 3-5 days, even if your symptoms have resolved. --Please review list of primary care clinics, if you do not already have a primary care provider Return sooner to ED if new symptoms occur, or current symptoms become worse. - Please note that this Emergency Department Report was dictated using [employer] portrait consultant technology software, occasionally this can lead to erroneous entry secondary to interpretation by the dictation equipment. Emily Kirkland Jul 08, 2020 13:46 Constantine Jones MD Jul 09, 2020 00:56
[2020-07-08] MEDS ORDERED: Lidocaine 2% Visc 15ml soln ORAL ONE (14:00)
[2020-07-08] MEDS ORDERED: Mylanta II UD 30ml ORAL ONE (14:00)
[2020-07-08 14:03] LABS: BASOPHILS % (AUTO) 1.6 % (0.0-2.0); EOSINOPHILS % (AUTO) 4.4 % (0.0-3.0); HEMATOCRIT 43.2 % (42.0-52.0); HEMOGLOBIN 15.4 G/DL (14.2-18.0); LYMPHOCYTES % (AUTO) 24.4 % (20.0-45.0); MEAN CORPUSCULAR VOLUME 86 FL (80-99); MONOCYTES % (AUTO) 9.4 % (1.0-10.0); NEUTROPHILS % (AUTO) 60.2 % (45.0-75.0); PLATELET COUNT 179 K/UL (150-450); RED CELL DISTRIBUTION WIDTH 11.3 % (11.6-14.8); WHITE BLOOD COUNT 4.4 K/UL (4.8-10.8)
[2020-07-08 14:17] LABS: ANION GAP 11 mmol/L (5-15); BLOOD UREA NITROGEN 16 mg/dL (7-18); CALCIUM 8.9 MG/DL (8.5-10.1); CARBON DIOXIDE 24 MMOL/L (21-32); CHLORIDE 100 MMOL/L (98-107); CREATININE 0.9 MG/DL (0.55-1.30); POTASSIUM 3.9 MMOL/L (3.5-5.1); SODIUM 135 MMOL/L (136-145)
[2020-07-08 14:27] LABS: ALANINE AMINOTRANSFERASE 122 U/L (12-78); ALKALINE PHOSPHATASE 133 U/L (46-116); ASPARTATE AMINO TRANSFERASE 145 U/L (15-37); BILIRUBIN,TOTAL 1.3 MG/DL (0.2-1.0)
[2020-07-08 14:28] LABS: BILIRUBIN,DIRECT 0.2 MG/DL (0.0-0.3)
[2020-07-08] MEDS ORDERED: LORazepam 1mg tab ORAL ONE (15:15)
[2020-07-08] MEDS ORDERED: ROBAXIN-500MG ORAL (15:32)
[2020-07-08] MEDS ORDERED: FAMOTIDINE20 MG ORAL (15:32)
[2020-07-08 15:42] VITALS: BP 150/76
== END 2020-07-08 15:42 | disposition home or self-care (01) ==
LOC: EMR 13:20
DX: K29.20 Alcoholic gastritis without bleeding (principal); F10.10 Alcohol abuse, uncomplicated; M54.5 Low back pain; R74.8 Abnormal levels of other serum enzymes
CPT/HCPCS: 36415; 80053; 82248; 83690; 85025; 96361; 96374; G0480; S0028; Z7502; 99284

== ENCOUNTER 2020-08-07 17:23 | Emergency (ER) | payer MEDICAID ==
[~2020-08-07] VITALS: Ht 162.6 cm; Wt 72.6 kg
[~2020-08-07 17:23] MED LIST changes: +ROBAXIN-500MG ORAL
[2020-08-07 17:39] VITALS: BP 120/80
--- NOTE | 2020-08-07 17:43 | Emergency Room Report ---
History of Present Illness General Chief Complaint: Alcohol Intoxication Source: Patient Present Illness HPI 35-year-old male with history of gastritis here with abdominal pain. Patient says that earlier today he began to feel sharp epigastric abdominal pain which was common for his usual flares of gastritis. He says that he decided to drink a sixpack of beer to treat the pain which did not resolve. 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 Nursing Documentation-[facility] Past Medical History: No Stated History Hx Cardiac Problems: No Hx Neurological Problems: No Hx Cerebrovascular Accident: No Physical Exam Vital Signs Date Time Temp Pulse Resp B/P (MAP) Pulse Ox O2 Delivery O2 Flow Rate FiO2 08/07/20 17:18 98.1 78 16 120/80 (93) 98 Room Air Sp02 EP Interpretation: reviewed, normal General Appearance: no apparent distress, alert, non-toxic, other - Clinically intoxicated but is awake and alert and able to answer questions Head: normocephalic, atraumatic Eyes: bilateral eye normal inspection, bilateral eye PERRL ENT: hearing grossly normal, normal pharynx, no angioedema, normal voice Neck: full range of motion, supple/symm/no masses Respiratory: chest non-tender, lungs clear, normal breath sounds, speaking full sentences Cardiovascular #1: regular rate, rhythm, no edema Cardiovascular #2: 2+ carotid (R), 2+ carotid (L), 2+ radial (R), 2+ radial (L), 2+ dorsalis pedis (R), 2+ dorsalis pedis (L) Gastrointestinal: normal bowel sounds, non tender, soft, non-distended, no guarding, no rebound, other - Abdomen nondistended, no rebound or guarding. Tenderness on palpation worse in the epigastric region. Negative Rovsing sign, negative Noonan sign Rectal: deferred Genitourinary: normal inspection, no CVA tenderness Musculoskeletal: back normal, normal range of motion, calf tenderness, gait/station normal, non-tender Neurologic: alert, motor strength/tone normal, oriented x3, sensory intact, responsive, speech normal Psychiatric: judgement/insight normal, memory normal, mood/affect normal, no suicidal/homicidal ideation Reflexes: 3+ bicep (R), 3+ bicep (L), 3+ tricep (R), 3+ tricep (L), 3+ knee (R), 3+ knee (L) Lymphatic: no adenopathy Medical Decision Making Diagnostic Impression: Primary Impression: Epigastric pain Additional Impression: Transaminitis ER Course CT abdomen pelvis: No acute abnormality definitively identified to account for patient presentation. Hepatic steatosis and possible steatohepatitis. Scattered calcified mesenteric nodes possibly representing old renal disease and no acute clinical signal. Laboratory Tests Test 08/07/20 17:50 White Blood Count 5.3 K/UL (4.8-10.8) Red Blood Count 5.29 M/UL (4.70-6.10) Hemoglobin 16.7 G/DL (14.2-18.0) Hematocrit 47.6 % (42.0-52.0) Mean Corpuscular Volume 90 FL (80-99) Mean Corpuscular Hemoglobin 31.5 PG (27.0-31.0) H Mean Corpuscular Hemoglobin Concent 35.0 G/DL (32.0-36.0) Red Cell Distribution Width 12.0 % (11.6-14.8) Platelet Count 303 K/UL (150-450) Mean Platelet Volume 6.2 FL (6.5-10.1) L Neutrophils (%) (Auto) 48.3 % (45.0-75.0) Lymphocytes (%) (Auto) 37.6 % (20.0-45.0) Monocytes (%) (Auto) 9.3 % (1.0-10.0) Eosinophils (%) (Auto) 3.0 % (0.0-3.0) Basophils (%) (Auto) 1.8 % (0.0-2.0) Sodium Level 137 MMOL/L (136-145) Potassium Level 3.6 MMOL/L (3.5-5.1) Chloride Level 98 MMOL/L (98-107) Carbon Dioxide Level 27 MMOL/L (21-32) Anion Gap 12 mmol/L (5-15) Blood Urea Nitrogen 10 mg/dL (7-18) Creatinine 1.0 MG/DL (0.55-1.30) Estimated Glomerular Filtration Rate > 60 mL/min (>60) Glucose Level 124 MG/DL (74-106) H Calcium Level 7.9 MG/DL (8.5-10.1) L Total Bilirubin 1.2 MG/DL (0.2-1.0) H Direct Bilirubin 0.5 MG/DL (0.0-0.3) H Aspartate Amino Transferase (AST) 1692 U/L (15-37) H Alanine Aminotransferase (ALT) 1192 U/L (12-78) H Alkaline Phosphatase 142 U/L (46-116) H Total Protein 7.3 G/DL (6.4-8.2) Albumin 4.0 G/DL (3.4-5.0) Globulin 3.3 g/dL Albumin/Globulin Ratio 1.2 (1.0-2.7) Lipase 136 U/L (73-393) Serum Alcohol 366 mg/dL 35-year-old male with no known past medical history here with abdominal pain. Patient was hemodynamically stable in the emergency department but visibly intoxicated. He admitted to drinking a sixpack of beer earlier today in order to treat the pain. Denies daily alcohol use. Denies drug use. Labs were significant for a notable transaminitis. AST was greater than 1600 and ALT was around 1200. Review of patient's previous labs 10 days ago showed normal LFTs at that time. Labs previously were normal and patient has never had a transaminitis in the past. He required multiple doses of IV pain medications in the emergency department with eventual moderate resolution of his pain. Denied any IV drug use or history of hepatitis. CT abdomen pelvis showed fatty liver but was otherwise unremarkable. Right upper quadrant ultrasound also did not reveal any acute abnormalities. I spoke with Dr. [facility] at [facility] who accepted the transfer. Patient awaiting transfer at this time. Last Vital Signs Date Time Temp Pulse Resp B/P (MAP) Pulse Ox O2 Delivery O2 Flow Rate FiO2 08/07/20 17:39 98.1 78 16 120/80 98 Room Air Janusz Odom M.D. Aug 07, 2020 17:43
[2020-08-07] MEDS ORDERED: Mylanta II UD 30ml ORAL ONE (17:45)
[2020-08-07] MEDS ORDERED: Lidocaine 2% Visc 15ml soln ORAL ONE (17:45)
[2020-08-07] MEDS ORDERED: Dicyclomine HCl 10mg/5ml oral soln ORAL ONE (17:45)
[2020-08-07 18:28] LABS: BASOPHILS % (AUTO) 1.8 % (0.0-2.0); HEMATOCRIT 47.6 % (42.0-52.0); HEMOGLOBIN 16.7 G/DL (14.2-18.0); LYMPHOCYTES % (AUTO) 37.6 % (20.0-45.0); MEAN CORPUSCULAR VOLUME 90 FL (80-99); MONOCYTES % (AUTO) 9.3 % (1.0-10.0); NEUTROPHILS % (AUTO) 48.3 % (45.0-75.0); PLATELET COUNT 303 K/UL (150-450); RED BLOOD COUNT 5.29 M/UL (4.70-6.10); WHITE BLOOD COUNT 5.3 K/UL (4.8-10.8)
[2020-08-07 18:39] LABS: ANION GAP 12 mmol/L (5-15); BLOOD UREA NITROGEN 10 mg/dL (7-18); CALCIUM 7.9 MG/DL (8.5-10.1); CARBON DIOXIDE 27 MMOL/L (21-32); CHLORIDE 98 MMOL/L (98-107); POTASSIUM 3.6 MMOL/L (3.5-5.1); SODIUM 137 MMOL/L (136-145)
[2020-08-07 18:49] LABS: ALANINE AMINOTRANSFERASE 1192 U/L (12-78); ALBUMIN/GLOBULIN RATIO 1.2 (1.0-2.7); ALKALINE PHOSPHATASE 142 U/L (46-116); ASPARTATE AMINO TRANSFERASE 1692 U/L (15-37); BILIRUBIN,TOTAL 1.2 MG/DL (0.2-1.0)
[2020-08-07 18:50] LABS: BILIRUBIN,DIRECT 0.5 MG/DL (0.0-0.3)
[2020-08-07] MEDS ORDERED: Morphine Sulfate 4mg/ml Inj (IV USE ONLY) IVP ONE ×3 (19:30→22:30)
[2020-08-07] MEDS ORDERED: Omnipaque-300 100ml vial INJ PRN (19:30)
--- NOTE | 2020-08-07 20:07 | Diagnostic Imaging Report ---
EXAM: CT Abdomen and Pelvis With Intravenous Contrast CLINICAL HISTORY: PAIN TECHNIQUE: Axial computed tomography images of the abdomen and pelvis with intravenous contrast. CTDI is 7.0 mGy and DLP is 385.2 mGy-cm. One or more of the following dose reduction techniques were used: automated exposure control, adjustment of the mA and/or kV according to patient size, use of iterative reconstruction technique. Coronal and sagittal reformatted images were created and reviewed. COMPARISON: 02/15/2020 FINDINGS: Lung bases: Unremarkable. No mass. No consolidation. ABDOMEN: Liver: Hepatic steatosis and possible steatohepatitis; consider outpatient MR or ultrasound elastography to quantify hepatic fibrosis. Gallbladder and bile ducts: Unremarkable. No calcified stones. No ductal dilation. Pancreas: Unremarkable. No mass. No ductal dilation. Spleen: Unremarkable. No splenomegaly. Adrenals: Unremarkable. No mass. Kidneys and ureters: Unremarkable. No solid mass. No hydronephrosis. Stomach and bowel: Unremarkable. No obstruction. No mucosal thickening. PELVIS: Appendix: No findings to suggest acute appendicitis. Bladder: Unremarkable. No mass. Reproductive: Unremarkable as visualized. ABDOMEN and PELVIS: Intraperitoneal space: Unremarkable. No free air. No significant fluid collection. Bones/joints: No acute fracture. No dislocation. Soft tissues: Unremarkable. Vasculature: Unremarkable. No abdominal aortic aneurysm. Lymph nodes: Scattered calcified mesenteric nodes probably representing old renal disease and are of no acute clinical signal. IMPRESSION: 1. No acute abnormality definitively identified to account for patient presentation. 2. Hepatic steatosis and possible steatohepatitis; consider outpatient MR or ultrasound elastography to quantify hepatic fibrosis. 3. Scattered calcified mesenteric nodes probably representing old renal disease and are of no acute clinical signal. 4. Otherwise unremarkable study.
--- NOTE | 2020-08-07 22:06 | Diagnostic Imaging Report ---
EXAM: US Abdomen Complete CLINICAL HISTORY: PAIN TECHNIQUE: Real-time ultrasound of the abdomen with image documentation. COMPARISON: Same-day CT abdomen and pelvis. FINDINGS: Liver: Fatty hepatomegaly suggests possible steatohepatitis; consider outpatient MR or ultrasound elastography to quantify hepatic fibrosis. Liver 17.2 cm No intrahepatic bile duct dilation. Gallbladder: Unremarkable. No gallstones. Common bile duct: CBD 0.5 cm No stones. No dilation. Pancreas: Unremarkable as visualized. Kidneys: Right kidney 10 cm Left kidney. 12 cm No stones. No hydronephrosis. Spleen: Spleen 12 cm Aorta: Aorta 1-1.5 cm No aneurysm. Inferior vena cava: Unremarkable. Other findings: GB wall 0.2 cm IMPRESSION: 1. No acute abnormality definitively identified to account for patient presentation. 2. Fatty hepatomegaly suggests possible steatohepatitis; consider outpatient MR or ultrasound elastography to quantify hepatic fibrosis. 3. Otherwise unremarkable study.
[2020-08-08] MEDS ORDERED: chlordiazePOXIDE 25mg Cap ORAL ONE (00:30)
[2020-08-08] MEDS ORDERED: LORazepam Inj 2mg/ml 1ml IV ONE (00:30)
[2020-08-08 01:40] VITALS: BP 130/75
== END 2020-08-08 01:40 | disposition short-term general hospital (02) ==
LOC: EDBD 17:23 → EMR 17:45
DX: R10.13 Epigastric pain (principal); R74.01 Elevation of levels of liver transaminase levels; K76.0 Fatty (change of) liver, not elsewhere classified
CPT/HCPCS: 36415; 74177; 76700; 80053; 82248; 83690; 85025; 96361; 96374; 96375; 96376; G0480; G0481; J0360; J2270; J2405; J7030; Q9965; S0028; Z7502; 99285

== ENCOUNTER 2020-11-06 17:08 | Emergency (ER) | payer MEDICAID ==
[~2020-11-06] VITALS: Ht 162.6 cm; Wt 72.6 kg
[2020-11-06] MEDS ORDERED: Dicyclomine HCl 10mg/5ml oral soln ORAL ONE (17:30)
[2020-11-06] MEDS ORDERED: Lidocaine 2% Visc 15ml soln ORAL ONE (17:30)
[2020-11-06] MEDS ORDERED: Mylanta II UD 30ml ORAL ONE (17:30)
--- NOTE | 2020-11-06 17:39 | Emergency Room Report ---
History of Present Illness General Chief Complaint: Abdominal Pain Source: Patient Present Illness HPI 35-year-old male with a history of alcohol abuse and gastritis here with epigastric abdominal pain and vomiting for 10 days. Patient says that he has been drinking alcohol daily. Says that he has been vomiting several times a day with several specks of blood in the vomit. No change in stool color or caliber. Patient has been seen here many times in the past for the same complaints. When patient was last here several months ago he had similar complaints and was found to have an elevation in his LFTs. Ultrasound and CT were unremarkable. Patient was transferred to [place]. Patient is a poor historian and is unable to further explain the hospital course. Patient says his last drink was last night. Pain is sharp in nature, located in the epigastric region, does not otherwise radiate. Denies headache, vision changes, fevers, chills, chest pain, palpitations, shortness of breath, cough, back pain, diarrhea, dysuria. 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 COVID-19 Screening: Negative COVID-19 COVID-19 Testing Source: clinic Nursing Documentation-[facility] Hx Cardiac Problems: No Hx Neurological Problems: No Hx Cerebrovascular Accident: No Review of Systems All Other Systems: negative except mentioned in HPI Physical Exam Vital Signs Date Time Temp Pulse Resp B/P (MAP) Pulse Ox O2 Delivery O2 Flow Rate FiO2 11/06/20 17:17 98.2 79 19 135/86 (102) 100 Sp02 EP Interpretation: reviewed, normal General Appearance: alert, non-toxic Head: normocephalic, atraumatic Eyes: bilateral eye normal inspection, bilateral eye PERRL ENT: hearing grossly normal, normal pharynx, no angioedema, normal voice Neck: full range of motion, supple/symm/no masses Respiratory: chest non-tender, lungs clear, normal breath sounds, speaking full sentences Cardiovascular #1: regular rate, rhythm, no edema Cardiovascular #2: 2+ carotid (R), 2+ carotid (L), 2+ radial (R), 2+ radial (L), 2+ dorsalis pedis (R), 2+ dorsalis pedis (L) Gastrointestinal: normal bowel sounds, soft, non-distended, no guarding, no rebound, other - Diffuse subjective abdominal tenderness. No rebound or guarding. Rectal: deferred Genitourinary: normal inspection, no CVA tenderness Musculoskeletal: back normal, normal range of motion, gait/station normal, non- tender Neurologic: alert, motor strength/tone normal, oriented x3, sensory intact, responsive, speech normal Psychiatric: judgement/insight normal, memory normal, mood/affect normal, no suicidal/homicidal ideation Lymphatic: no adenopathy Medical Decision Making Diagnostic Impression: Primary Impression: Abdominal pain Additional Impression: Acute alcoholic intoxication ER Course Laboratory Tests Test 11/06/20 17:40 White Blood Count 5.8 K/UL (4.8-10.8) Red Blood Count 4.97 M/UL (4.70-6.10) Hemoglobin 14.9 G/DL (14.2-18.0) Hematocrit 44.5 % (42.0-52.0) Mean Corpuscular Volume 90 FL (80-99) Mean Corpuscular Hemoglobin 30.0 PG (27.0-31.0) Mean Corpuscular Hemoglobin Concent 33.5 G/DL (32.0-36.0) Red Cell Distribution Width 11.3 % (11.6-14.8) L Platelet Count 267 K/UL (150-450) Mean Platelet Volume 6.5 FL (6.5-10.1) Neutrophils (%) (Auto) 49.7 % (45.0-75.0) Lymphocytes (%) (Auto) 39.3 % (20.0-45.0) Monocytes (%) (Auto) 8.8 % (1.0-10.0) Eosinophils (%) (Auto) 0.9 % (0.0-3.0) Basophils (%) (Auto) 1.4 % (0.0-2.0) Urine Color Pale yellow Urine Appearance Clear Urine pH 6 (4.5-8.0) Urine Specific [place] 1.005 (1.005-1.035) Urine Protein Negative (NEGATIVE) Urine Glucose (UA) Negative (NEGATIVE) Urine Ketones Negative (NEGATIVE) Urine Blood Negative (NEGATIVE) Urine Nitrite Negative (NEGATIVE) Urine Bilirubin Negative (NEGATIVE) Urine Urobilinogen Normal MG/DL (0.0-1.0) Urine Leukocyte Esterase Negative (NEGATIVE) Sodium Level 143 MMOL/L (136-145) Potassium Level 3.4 MMOL/L (3.5-5.1) L Chloride Level 107 MMOL/L (98-107) Carbon Dioxide Level 26 MMOL/L (21-32) Anion Gap 10 mmol/L (5-15) Blood Urea Nitrogen 6 mg/dL (7-18) L Creatinine 0.8 MG/DL (0.55-1.30) Estimated Glomerular Filtration Rate > 60 mL/min (>60) Glucose Level 160 MG/DL (74-106) H Calcium Level 8.3 MG/DL (8.5-10.1) L Total Bilirubin 0.6 MG/DL (0.2-1.0) Aspartate Amino Transferase (AST) 87 U/L (15-37) H Alanine Aminotransferase (ALT) 91 U/L (12-78) H Alkaline Phosphatase 96 U/L (46-116) Total Protein 7.4 G/DL (6.4-8.2) Albumin 3.5 G/DL (3.4-5.0) Globulin 3.9 g/dL Albumin/Globulin Ratio 0.9 (1.0-2.7) L Lipase 219 U/L (73-393) Serum Alcohol 288 mg/dL 35-year-old male with history of alcohol abuse and gastritis here with epigastric abdominal pain. Patient was afebrile and had normal vital signs and an unremarkable physical examination in the emergency department. Multiple times the patient offered [place] to give him "strong pain medication." Patient was given a GI cocktail and Tay was still requesting multiple dose of pain medication. Patient has been here multiple times in the past with similar drug- seeking behavior. Was given 2 doses of morphine and was seen resting comfort ably. He was given Zofran and Reglan with good resolution of his nausea. Patient said that he has been noncompliant with his antacid medication. He told me that he has not drinking any alcohol recently but serum alcohol today was highly elevated 288. Patient was told to refrain from drinking alcohol as this is likely exacerbating his frequent visits for epigastric abdominal pain. Given prescription for Pepcid. Told to follow-up with primary care in alcohol detox center. Given information to follow-up with alcohol detox. Discharged in stable condition. Last Vital Signs Date Time Temp Pulse Resp B/P (MAP) Pulse Ox O2 Delivery O2 Flow Rate FiO2 11/06/20 17:17 98.2 79 19 135/86 (102) 100 Scripts Chlordiazepoxide Hcl* (LIBRIUM*) 10 Mg Capsule 10 MG ORAL THREE TIMES A DAY, #15 CAP 0 Refills Prov: Janusz Odom M.D. 11/06/20 Pantoprazole* (PROTONIX*) 40 Mg Tablet. 40 MG ORAL DAILY, #30 TAB Prov: Janusz Odom M.D. 11/06/20 Janusz Odom M.D. Nov 06, 2020 17:39
[2020-11-06] MEDS ORDERED: LORazepam Inj 2mg/ml 1ml IV ONE (17:45)
[2020-11-06 18:26] LABS: APPEARANCE,URINE CLEAR; BILIRUBIN, URINE NEGATIVE (NEGATIVE); COLOR,URINE PALE YELLOW; GLUCOSE, URINE (UA) NEGATIVE (NEGATIVE); KETONES,URINE NEGATIVE (NEGATIVE); LEUKOCYTE ESTERASE ,URINE NEGATIVE (NEGATIVE); NITRITE,URINE NEGATIVE (NEGATIVE); PH,URINE 6 (4.5-8.0); PROTEIN,URINE NEGATIVE (NEGATIVE); UROBILINOGEN,URINE NORMAL MG/DL (0.0-1.0)
[2020-11-06 18:29] LABS: ANION GAP 10 mmol/L (5-15); BLOOD UREA NITROGEN 6 mg/dL (7-18); CALCIUM 8.3 MG/DL (8.5-10.1); CARBON DIOXIDE 26 MMOL/L (21-32); CHLORIDE 107 MMOL/L (98-107); CREATININE 0.8 MG/DL (0.55-1.30); POTASSIUM 3.4 MMOL/L (3.5-5.1); SODIUM 143 MMOL/L (136-145)
--- NOTE | 2020-11-06 18:30 | NUR ---
ED Nurse Note:pt. came from home with abdominal pain ,alcohol abuse, blood sent to labs, iv meds amnd fluids given
[2020-11-06 18:33] LABS: ALANINE AMINOTRANSFERASE 91 U/L (12-78); ALBUMIN 3.5 G/DL (3.4-5.0); ALBUMIN/GLOBULIN RATIO 0.9 (1.0-2.7); ALKALINE PHOSPHATASE 96 U/L (46-116); ASPARTATE AMINO TRANSFERASE 87 U/L (15-37); BILIRUBIN,TOTAL 0.6 MG/DL (0.2-1.0)
[2020-11-06 18:42] VITALS: BP 135/86
[2020-11-06] MEDS ORDERED: Morphine Sulfate 4mg/ml Inj (IV USE ONLY) IVP ONE ×2 (18:45)
[2020-11-06] MEDS ORDERED: Metoclopramide 10mg/2ml Inj IVP ONE (18:45)
[2020-11-06 18:47] LABS: BASOPHILS % (AUTO) 1.4 % (0.0-2.0); EOSINOPHILS % (AUTO) 0.9 % (0.0-3.0); HEMATOCRIT 44.5 % (42.0-52.0); HEMOGLOBIN 14.9 G/DL (14.2-18.0); LYMPHOCYTES % (AUTO) 39.3 % (20.0-45.0); MEAN CORPUSCULAR VOLUME 90 FL (80-99); MONOCYTES % (AUTO) 8.8 % (1.0-10.0); NEUTROPHILS % (AUTO) 49.7 % (45.0-75.0); PLATELET COUNT 267 K/UL (150-450); RED BLOOD COUNT 4.97 M/UL (4.70-6.10); RED CELL DISTRIBUTION WIDTH 11.3 % (11.6-14.8); WHITE BLOOD COUNT 5.8 K/UL (4.8-10.8)
[2020-11-06] MEDS ORDERED: PROTONIX40 MG ORAL (18:47)
[2020-11-06] MEDS ORDERED: LIBRIUM10 MG ORAL (18:47)
[2020-11-06 19:02] VITALS: BP 135/86
== END 2020-11-06 19:08 | disposition home or self-care (01) ==
LOC: EMR 18:25
DX: R10.13 Epigastric pain (principal); F10.129 Alcohol abuse with intoxication, unspecified
CPT/HCPCS: 36415; 80053; 81003; 83690; 85025; 96361; 96374; 96375; 96376; G0480; J2270; J2405; J2765; J7030; S0028; Z7502; 99284

== ENCOUNTER 2020-12-18 16:40 | Emergency (ER) | payer MEDICAID ==
[~2020-12-18] VITALS: Ht 167.6 cm; Wt 81.6 kg
[~2020-12-18 16:40] MED LIST changes: +PROTONIX40 MG ORAL
[2020-12-18] MEDS ORDERED: Lidocaine 2% Visc 15ml soln ORAL ONE (20:00)
[2020-12-18] MEDS ORDERED: Mylanta II UD 30ml ORAL ONE (20:00)
[2020-12-18] MEDS ORDERED: Dicyclomine HCl 10mg/5ml oral soln ORAL ONE (20:00)
--- NOTE | 2020-12-18 20:00 | NUR ---
pt medicated per dec. v/s stable. pt in no distress. md at bedside for eval
[2020-12-18 21:03] LABS: BASOPHILS % (AUTO) 1.9 % (0.0-2.0); EOSINOPHILS % (AUTO) 1.3 % (0.0-3.0); HEMATOCRIT 46.8 % (42.0-52.0); HEMOGLOBIN 16.2 G/DL (14.2-18.0); LYMPHOCYTES % (AUTO) 37.4 % (20.0-45.0); MEAN CORPUSCULAR VOLUME 90 FL (80-99); MONOCYTES % (AUTO) 9.9 % (1.0-10.0); NEUTROPHILS % (AUTO) 49.5 % (45.0-75.0); PLATELET COUNT 309 K/UL (150-450); RED BLOOD COUNT 5.21 M/UL (4.70-6.10); RED CELL DISTRIBUTION WIDTH 11.3 % (11.6-14.8); WHITE BLOOD COUNT 6.1 K/UL (4.8-10.8)
[2020-12-18 21:07] LABS: ANION GAP 14 mmol/L (5-15); BLOOD UREA NITROGEN 13 mg/dL (7-18); CALCIUM 8.2 MG/DL (8.5-10.1); CARBON DIOXIDE 25 MMOL/L (21-32); CHLORIDE 104 MMOL/L (98-107); CREATININE 0.9 MG/DL (0.55-1.30); POTASSIUM 3.7 MMOL/L (3.5-5.1); SODIUM 143 MMOL/L (136-145)
[2020-12-18 21:11] LABS: ALANINE AMINOTRANSFERASE 108 U/L (12-78); ALBUMIN 4.2 G/DL (3.4-5.0); ALBUMIN/GLOBULIN RATIO 1.1 (1.0-2.7); ALKALINE PHOSPHATASE 85 U/L (46-116); ASPARTATE AMINO TRANSFERASE 92 U/L (15-37); BILIRUBIN,TOTAL 0.9 MG/DL (0.2-1.0)
[2020-12-18 21:14] VITALS: BP 130/80
--- NOTE | 2020-12-18 21:38 | Emergency Room Report ---
History of Present Illness General Chief Complaint: Abdominal Pain Source: Patient Present Illness HPI Disclaimer: Please note that this report is being documented using [employer] technology. This can lead to erroneous entry secondary to incorrect interpretation by the dictating instrument. HPI: 35-year-old male history of alcohol abuse and gastritis presents for evaluation of abdominal pain and vomiting. Patient states he was in an argument with his earlier today and drank tequila during the afternoon. He reports persistent retching. Reports specks of blood in the emesis. This is similar to patient's prior presentations. Denies fever or chills. Denies diarrhea. Denies drug use. 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 EOMI. Cardiovascular: RRR. S1 and S2 normal. No murmur appreciated Resp: Normal work of breathing. No cough, wheezing or crackles appreciated Abdomen: Abdomen is soft, nondistended. Tender palpation in the epigastrium and upper quadrants bilaterally. No peritoneal signs. No rebound. Skin: Intact. No abrasions, laceration or rash over the exposed skin MSK: Normal tone and bulk. Moving all extremities. No obvious deformity. Neuro: Awake and alert. Mentating appropriately. Medical Decision Making Diagnostic Impression: Primary Impression: Abdominal pain Additional Impressions: Alcohol abuse Transaminitis ER Course 35-year-old male presenting for abdominal pain with recent alcohol use. Concern for gastritis, gastroenteritis, pancreatitis, hepatitis, cholecystitis, electrolyte abnormalities, kidney injuries among others. Patient given antie metics and GI cocktail. Labs returned within normal limits aside from minor elevations in LFTs similar to prior visits. No further emesis in the ED. Will restart his Protonix. Instructed to stay away from alcohol is likely the cause of his symptoms. Do not believe he requires emergent imaging at this point. Stable for outpatient follow-up. Laboratory Tests Test 12/18/20 20:40 White Blood Count 6.1 K/UL (4.8-10.8) Red Blood Count 5.21 M/UL (4.70-6.10) Hemoglobin 16.2 G/DL (14.2-18.0) Hematocrit 46.8 % (42.0-52.0) Mean Corpuscular Volume 90 FL (80-99) Mean Corpuscular Hemoglobin 31.0 PG (27.0-31.0) Mean Corpuscular Hemoglobin Concent 34.5 G/DL (32.0-36.0) Red Cell Distribution Width 11.3 % (11.6-14.8) L Platelet Count 309 K/UL (150-450) Mean Platelet Volume 6.3 FL (6.5-10.1) L Neutrophils (%) (Auto) 49.5 % (45.0-75.0) Lymphocytes (%) (Auto) 37.4 % (20.0-45.0) Monocytes (%) (Auto) 9.9 % (1.0-10.0) Eosinophils (%) (Auto) 1.3 % (0.0-3.0) Basophils (%) (Auto) 1.9 % (0.0-2.0) Sodium Level 143 MMOL/L (136-145) Potassium Level 3.7 MMOL/L (3.5-5.1) Chloride Level 104 MMOL/L (98-107) Carbon Dioxide Level 25 MMOL/L (21-32) Anion Gap 14 mmol/L (5-15) Blood Urea Nitrogen 13 mg/dL (7-18) Creatinine 0.9 MG/DL (0.55-1.30) Estimated Glomerular Filtration Rate > 60 mL/min (>60) Glucose Level 126 MG/DL (74-106) H Calcium Level 8.2 MG/DL (8.5-10.1) L Total Bilirubin 0.9 MG/DL (0.2-1.0) Aspartate Amino Transferase (AST) 92 U/L (15-37) H Alanine Aminotransferase (ALT) 108 U/L (12-78) H Alkaline Phosphatase 85 U/L (46-116) Total Protein 8.1 G/DL (6.4-8.2) Albumin 4.2 G/DL (3.4-5.0) Globulin 3.9 g/dL Albumin/Globulin Ratio 1.1 (1.0-2.7) Lipase 119 U/L (73-393) Last Vital Signs Date Time Temp Pulse Resp B/P (MAP) Pulse Ox O2 Delivery O2 Flow Rate FiO2 12/18/20 21:14 78 18 Room Air 12/18/20 21:14 98.1 130/80 98 Disposition: HOME, SELF-CARE Condition: Stable Scripts Mag Hydrox/Al Hydrox/Simeth (MAALOX MAXIMUM STRENGTH SUSP) 355 Ml Oral.susp 15 ML PO TID, #355 ML Prov: Deniz Caldera MD 12/18/20 Ondansetron* (ZOFRAN*) 4 Mg Tablet 4 MG ORAL Q6H PRN for Nausea & Vomiting, #10 TAB Prov: Deniz Caldera MD 12/18/20 Referrals: JERO GARCIA,REFERRING (PCP) Deniz Caldera MD Dec 18, 2020 21:38
[2020-12-18] MEDS ORDERED: ZOFRAN4 M3 ORAL (21:39)
[2020-12-18] MEDS ORDERED: MAALOX MAXIMUM355 M1 PO (21:39)
[2020-12-18] MEDS ORDERED: Metoclopramide 10mg/2ml Inj IVP ONE (21:45)
[2020-12-18] MEDS ORDERED: DiphenhydrAMINE 50mg/ml Inj IVP ONE (21:45)
[2020-12-18] MEDS ORDERED: PROTONIX40 MG ORAL (21:49)
--- NOTE | 2020-12-18 21:52 | NUR ---
at bedside for reeval
--- NOTE | 2020-12-18 22:11 | NUR ---
pt medicated per mar. pt given and understands discharge isntructions. pt ambulatory out w steady gait
== END 2020-12-18 22:12 | disposition home or self-care (01) ==
LOC: EDBD 16:40 → EMR 17:17
DX: R10.9 Unspecified abdominal pain (principal); F10.10 Alcohol abuse, uncomplicated; R74.01 Elevation of levels of liver transaminase levels
CPT/HCPCS: 36415; 80053; 83690; 85025; 96374; 96375; J1200; J2405; J2765; S0028; Z7502; 99284